=== PATIENT | male | born 1930 | race Caucasian/White ===

== ENCOUNTER 2018-02-22 17:28 | Observation (INO) | payer MEDICARE, BC ==
[~2018-02-22] VITALS: Ht 170.2 cm; Wt 91.7 kg
[~2018-02-22 17:28] MED LIST: CARV12.52 PO; CHEL50TA PO; FERR140T PO; JANU50TA PO; LISI2.5T55 PO; METO50TA PO; OMEP20TA39 PO; PRAV10 PO; PROS5TAB2 PO; TAMS0.4C67 PO; TRAZ50TA4 PO; WARF2TAB PO
[2018-02-22 17:31] VITALS: BP 113/54; PULSE 81; RESP 16; TEMP 97.4; O2SAT 95
--- NOTE | 2018-02-22 17:39 | PD ---
HPI Chief Complaint: Bleeding Time Seen by Provider: 17:39 Travel History International Travel<30 days: No Contact w/Intl Traveler<30days: No Traveled to known affect area: No History of Present Illness HPI 87-year-old male came to the emergency room with his with history of bleeding from his AV fistula for his hemodialysis. Patient was last dialyzed yesterday and the bleeding started from the site last night. says that they have gone through many gauzes since then and the bleeding will not stop. Patient is also on Coumadin and his INR was 2.5 about 1 week ago. Patient is hemodynamically stable. No history of dizziness or lightheadedness. PFSH Past Medical History Narrative Medical List of his past medical, surgical, social and family history reviewed from the nursing note. Hx Anticoagulant Therapy: Yes (Warfarin) Cardiac Catheterization: Yes Cardiovascular Problems: Yes (Open Heart 1997) High Cholesterol: Yes Coronary Artery Disease: Yes Diabetes: Yes (Type 2) Dialysis: Yes (-w-) Diminished Hearing: No GERD: Yes Hypertension: Yes Past Surgical History Coronary Artery Bypass Graft: Yes (X 4 VESSELS) Valve Replacement: Yes (MVR, AV REPAIR) Other Surgery: Yes (AV FISTULA LUE) Social History Alcohol Use: No Tobacco Use: No Substance Use: No Allergies-Medications (Allergen,Severity, Reaction): Coded Allergies: simvastatin (Verified Allergy, Severe, WEAKNESS, 02/22/18) Comments List of his allergies reviewed from the nursing note. Reported Meds & Prescriptions Reported Meds & Active Scripts Active Reported Zolpidem (Zolpidem Tartrate) 5 Mg Tab 5 Mg PO HS PRN Renvela (Sevelamer Carbonate) 800 Mg Tab 800 Mg PO TID Isosorbide Mononitrate ER (Isosorbide Mononitrate) 30 Mg Melanie 30 Mg PO DAILY Tamsulosin (Tamsulosin HCl) 0.4 Mg Cap 0.4 Mg PO HS Pravastatin 10 Mg Tab 10 Mg PO DAILY Trazodone (Trazodone HCl) 50 Mg Tab 50 Mg PO HS Finasteride 5 Mg Tab 5 Mg PO DAILY Do not crush. Carvedilol 3.125 Mg Tab 3.125 Mg PO BID [Zinc] 50 Mg PO DAILY Aspirin Low Dose (Aspirin) 81 Mg Chew 81 Mg PO DAILY Iron (Ferrous Sulfate) 18 Mg Tab 65 Mg PO DAILY Januvia (Sitagliptin Phosphate) 50 Mg Tab 50 Mg PO DAILY Narrative Medication List of his home medications reviewed from the nursing note Review of Systems Except as stated in HPI: all other systems reviewed are Neg Physical Exam Narrative GENERAL: Awake, alert, no obvious distress SKIN: Focused skin assessment warm/dry. Left arm fistula with thrill. There is gauze dressing with tape on it. Upon slowly taking the tape off this seems to be a slow ooze of blood from the fistulous area. HEAD: Atraumatic. Normocephalic. EYES: Pupils equal and round. No scleral icterus. No injection or drainage. ENT: No nasal bleeding or discharge. Mucous membranes pink and moist. NECK: Trachea midline. No JVD. CARDIOVASCULAR: Regular rate and rhythm. No murmur appreciated. RESPIRATORY: No accessory muscle use. Clear to auscultation. Breath sounds equal bilaterally. GASTROINTESTINAL: Abdomen soft, non-tender, nondistended. Hepatic and splenic margins not palpable. MUSCULOSKELETAL: No obvious deformities. No clubbing. No cyanosis. No edema. NEUROLOGICAL: Awake and alert. No obvious cranial nerve deficits. Motor grossly within normal limits. Normal speech. PSYCHIATRIC: Appropriate mood and affect; insight and judgment normal. Data Data Last Documented VS Vital Signs Date Time Temp Pulse Resp B/P (MAP) Pulse Ox O2 Delivery O2 Flow Rate FiO2 02/22/18 19:07 98 18 113/60 (77) 100 Room Air 02/22/18 17:31 97.4 Orders Orders Complete Blood Count With Diff (02/22/18 17:48) Basic Metabolic Panel (Bmp) (02/22/18 17:48) Prothrombin Time / Inr (Pt) (02/22/18 17:48) Gelatin 12 Mm/7 Mm Top (Gelfoam 12 Mm/7 (02/22/18 18:00) Phytonadione (Mephyton) (02/22/18 18:30) Place In Observation (02/22/18 ) Vital Signs (Adult) Q4H (02/22/18 19:06) Activity Oob With Assistance (02/22/18 19:06) Sodium Chloride 0.9% Flush (Ns Flush) (02/22/18 19:15) Sodium Chloride 0.9% Flush (Ns Flush) (02/22/18 21:00) Acetaminophen (Tylenol) (02/22/18 19:15) Ondansetron Inj (Zofran Inj) (02/22/18 19:15) Basic Metabolic Panel (Bmp) (02/23/18 06:00) Complete Blood Count With Diff (02/23/18 06:00) Naloxone Inj (Narcan Inj) (02/22/18 19:15) Docusate Sodium-Senna (Tammie-Colace) (02/22/18 21:00) Magnesium Hydroxide Liq (Milk Of Magnesi (02/22/18 19:15) Sennosides (Senokot) (02/22/18 19:15) Bisacodyl Supp (Dulcolax Supp) (02/22/18 19:15) Lactulose Liq (Lactulose Liq) (02/22/18 19:15) Prothrombin Time / Inr (Pt) (02/23/18 06:00) Consult Nephrology (02/22/18 ) Admit Order (Ed Use Only) (02/22/18 19:09) Labs Laboratory Tests Test 02/22/18 18:00 White Blood Count 6.3 TH/MM3 Red Blood Count 3.02 MIL/MM3 Hemoglobin 10.1 GM/DL Hematocrit 29.4 % Mean Corpuscular Volume 97.3 FL Mean Corpuscular Hemoglobin 33.5 PG Mean Corpuscular Hemoglobin Concent 34.5 % Red Cell Distribution Width 15.1 % Platelet Count 160 TH/MM3 Mean Platelet Volume 8.1 FL Neutrophils (%) (Auto) 67.1 % Lymphocytes (%) (Auto) 13.9 % Monocytes (%) (Auto) 8.8 % Eosinophils (%) (Auto) 6.4 % Basophils (%) (Auto) 3.8 % Neutrophils # (Auto) 4.2 TH/MM3 Lymphocytes # (Auto) 0.9 TH/MM3 Monocytes # (Auto) 0.6 TH/MM3 Eosinophils # (Auto) 0.4 TH/MM3 Basophils # (Auto) 0.2 TH/MM3 CBC Comment DIFF FINAL Differential Comment Prothrombin Time 51.0 SEC Prothromb Time International Ratio 5.1 RATIO Blood Urea Nitrogen 24 MG/DL Creatinine 5.80 MG/DL Random Glucose 115 MG/DL Calcium Level 9.5 MG/DL Sodium Level 136 MEQ/L Potassium Level 3.9 MEQ/L Chloride Level 101 MEQ/L Carbon Dioxide Level 27.4 MEQ/L Anion Gap 8 MEQ/L Estimat Glomerular Filtration Rate 9 ML/MIN [facility] Medical Decision Making Medical Screen Exam Complete: Yes Emergency Medical Condition: Yes Medical Record Reviewed: Yes Differential Diagnosis Bleeding from AV fistula Narrative Course 6:10 PM CBC is back and within acceptable limit. Awaiting for chemistry and INR. Patient will get a Gelfoam dressing and be observed to see if that stops the bleeding. 6:28 PM thrombin Gelfoam dressing was applied to the area. Meanwhile the blood test results are back and INR is 5.1. I have ordered for p.o. vitamin K for this patient. 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 6:55 PM I just went back and checked on the patient's dressing and the blood was oozing out. I have taken out the dressing and applied a fresh Gelfoam and a tighter dressing over it. However given the situation at this point and the elevated INR I think it would be better to admit the patient and observe him overnight. Awaiting for the hospitalist to call back. 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 You will require a repeat blood test to check your INR in 48 hours. Hold off on your Coumadin for tonight and tomorrow. Return to the ER if condition worsens or any other new concerns. Med/Other Pt SpecificInfo: Existing Med Changed (Hold off on the Warfarin for next 2 days) Scripts Warfarin (Warfarin) 4 Mg Tab 4 MG PO EVERY OTHER DAY for Blood Clot Prevention, #30 TAB 0 Refills Prov: Kamla Sheikh 02/24/18 Warfarin (Warfarin) 3 Mg Tab 3 MG PO EVERY OTHER DAY for Blood Clot Prevention, #30 TAB 0 Refills Prov: Kamla Sheikh 02/24/18 Amber Swift MD February 22, 2018 17:39
[2018-02-22] MEDS ORDERED: GELATIN 12 MM/7 MM FOAM TOPICAL ONE (18:00)
[2018-02-22 18:06] LABS: AUTOMATED NEUTROPHIL # 4.2 TH/MM3 (1.8-7.7); BASOPHIL # 0.2 TH/MM3 (0-0.2); BASOPHIL % 3.8 % (0.0-2.0); EOSINOPHIL # 0.4 TH/MM3 (0-0.4); EOSINOPHIL % 6.4 % (0.0-4.0); HEMATOCRIT 29.4 % (39.0-51.0); HEMOGLOBIN 10.1 GM/DL (13.0-17.0); LYMPH % 13.9 % (9.0-44.0); LYMPHOCYTE # 0.9 TH/MM3 (1.0-4.8); MEAN CELL VOLUME 97.3 FL (80.0-100.0); MEAN CORPUSCULAR HEMOGLOBIN 33.5 PG (27.0-34.0); MEAN CORPUSCULAR HGB CONC 34.5 % (32.0-36.0); MEAN PLATELET VOLUME 8.1 FL (7.0-11.0); MONO % 8.8 % (0.0-8.0); MONOCYTE # 0.6 TH/MM3 (0-0.9); NEUT % 67.1 % (16.0-70.0); PLATELET COUNT 160 TH/MM3 (150-450); RED BLOOD COUNT 3.02 MIL/MM3 (4.50-5.90); RED CELL DISTRIBUTION WIDTH 15.1 % (11.6-17.2); WHITE BLOOD COUNT 6.3 TH/MM3 (4.0-11.0)
[2018-02-22 18:17] LABS: CALCIUM 9.5 MG/DL (8.5-10.1)
[2018-02-22 18:18] LABS: BICARBONATE 27.4 MEQ/L (21.0-32.0)
[2018-02-22 18:19] LABS: INTERNATIONAL NORMALIZED RATIO 5.1 RATIO
[2018-02-22 18:21] LABS: CREATININE 5.8 MG/DL (0.60-1.30)
[2018-02-22] MEDS ORDERED: PHYTONADIONE 5 MG TAB PO ONE (18:30)
[2018-02-22 18:34] VITALS: BP 126/79; PULSE 68; RESP 16; O2SAT 97
[2018-02-22 19:07] VITALS: BP 113/60; PULSE 98; RESP 18; O2SAT 100
[2018-02-22] MEDS ORDERED: ONDANSETRON HCL 4 MG/2 ML VIAL IVP PRN (19:15)
[2018-02-22] MEDS ORDERED: MAGNESIUM HYDROXIDE SUSP 30 ML CUP PO PRN (19:15)
[2018-02-22] MEDS ORDERED: LACTULOSE SYRUP 20 GM/30 ML CUP PO PRN (19:15)
[2018-02-22] MEDS ORDERED: NALOXONE HCL 0.4 MG/ML AMP IV PUSH PRN (19:15)
[2018-02-22] MEDS ORDERED: SENNOSIDES 8.6 MG TAB PO PRN (19:15)
[2018-02-22] MEDS ORDERED: SODIUM CHLORIDE 0.9% FLUSH 10 ML FLUSH IV FLUSH PRN (19:15)
[2018-02-22] MEDS ORDERED: BISACODYL 10 MG SUPP RECTAL PRN (19:15)
[2018-02-22] MEDS ORDERED: ACETAMINOPHEN 325 MG TAB PO PRN (19:15)
[2018-02-22] MEDS ORDERED: SEVEL800 PO (19:16)
[2018-02-22] MEDS ORDERED: ASPI81CH6 PO (19:16)
[2018-02-22] MEDS ORDERED: ZOLP5TAB3 PO (19:16)
[2018-02-22] MEDS ORDERED: ZINCLOZ8 PO (19:16)
[2018-02-22] MEDS ORDERED: FINA5TAB2 PO (19:16)
[2018-02-22] MEDS ORDERED: TRAZ50TA12 PO (19:16)
[2018-02-22] MEDS ORDERED: SITA50 PO (19:16)
[2018-02-22] MEDS ORDERED: TAMS0.4C4 PO (19:16)
[2018-02-22] MEDS ORDERED: CARV3.12 PO (19:16)
[2018-02-22] MEDS ORDERED: IRON18TA PO (19:16)
[2018-02-22] MEDS ORDERED: PRAV10TA PO (19:16)
[2018-02-22] MEDS ORDERED: ISOS30TA3 PO (19:16)
[2018-02-22] MEDS ORDERED: WARF-20 PO (19:16)
[2018-02-22 20:55] VITALS: BP 121/61
[2018-02-22] MEDS: DOCUSATE SODIUM 50 MG/SENNA 8.6 MG TAB PO SCH (21:00)
[2018-02-22 21:23] VITALS: BP 130/62; PULSE 80; RESP 20; TEMP 96.7; O2SAT 99
[2018-02-23] VITALS (8 sets, daily range): BP systolic 114–129; BP diastolic 57–100; PULSE 67–87; RESP 15–18; TEMP 96–98.1; O2SAT 92–99
[2018-02-23] MEDS: SODIUM CHLORIDE 0.9% FLUSH 10 ML FLUSH IV FLUSH SCH ×3 (00:49→22:05)
[2018-02-23 06:49] LABS: AUTOMATED NEUTROPHIL # 4.5 TH/MM3 (1.8-7.7); BASOPHIL # 0.2 TH/MM3 (0-0.2); BASOPHIL % 2.8 % (0.0-2.0); EOSINOPHIL # 0.4 TH/MM3 (0-0.4); EOSINOPHIL % 5.7 % (0.0-4.0); HEMATOCRIT 29.9 % (39.0-51.0); HEMOGLOBIN 9.5 GM/DL (13.0-17.0); LYMPH % 10.8 % (9.0-44.0); LYMPHOCYTE # 0.7 TH/MM3 (1.0-4.8); MEAN CELL VOLUME 96.6 FL (80.0-100.0); MEAN CORPUSCULAR HEMOGLOBIN 30.8 PG (27.0-34.0); MEAN CORPUSCULAR HGB CONC 31.9 % (32.0-36.0); MEAN PLATELET VOLUME 8.3 FL (7.0-11.0); MONOCYTE # 0.7 TH/MM3 (0-0.9); NEUT % 69.7 % (16.0-70.0); PLATELET COUNT 153 TH/MM3 (150-450); RED BLOOD COUNT 3.09 MIL/MM3 (4.50-5.90); RED CELL DISTRIBUTION WIDTH 14.3 % (11.6-17.2); WHITE BLOOD COUNT 6.5 TH/MM3 (4.0-11.0)
[2018-02-23 06:52] LABS: INTERNATIONAL NORMALIZED RATIO 3.3 RATIO; PROTHROMBIN TIME - PATIENT 33.6 SEC (9.8-11.6)
[2018-02-23 06:58] LABS: BICARBONATE 25.5 MEQ/L (21.0-32.0); CALCIUM 9.5 MG/DL (8.5-10.1)
[2018-02-23 07:01] LABS: CREATININE 6.4 MG/DL (0.60-1.30)
[2018-02-23] MEDS ORDERED: SODIUM CHLOR 0.9% 1000 ML INJ 1,000 ML OTHER PRN ×2 (08:12)
[2018-02-23] MEDS ORDERED: SODIUM CHLOR 0.9% 1000 ML INJ 1,000 ML IV PRN (08:12)
[2018-02-23] MEDS ORDERED: ACETAMINOPHEN 325 MG TAB PO PRN (08:15)
[2018-02-23] MEDS ORDERED: HEPARIN SODIUM - IV 10,000 UNITS/10 ML VIAL IV FLUSH PRN (08:15)
[2018-02-23] MEDS ORDERED: EPOETIN ALFA 10,000 UNITS/ML VIAL IV PUSH PRN (08:15)
[2018-02-23] MEDS ORDERED: ALBUMIN 25% INJ 100 ML IV PRN (08:15)
[2018-02-23] MEDS ORDERED: MANNITOL 12.5 GM/50 ML VIAL IV PRN (08:15)
[2018-02-23] MEDS ORDERED: ONDANSETRON HCL 4 MG/2 ML VIAL IV PUSH PRN (08:15)
[2018-02-23] MEDS: DOCUSATE SODIUM 50 MG/SENNA 8.6 MG TAB PO SCH ×2 (08:15→21:00)
[2018-02-23] MEDS ORDERED: NITROGLYCERIN 0.4 MG SL 25 TABS/BTL SL PRN (08:15)
[2018-02-23] MEDS ORDERED: GELATIN 12 MM/7 MM FOAM TOP PRN (08:15)
[2018-02-23] MEDS ORDERED: SODIUM CHLORIDE 0.9% FLUSH 10 ML FLUSH IV FLUSH PRN (08:15)
[2018-02-23] MEDS ORDERED: diphenhydrAMINE HCL 25 MG CAP PO PRN (08:15)
[2018-02-23] MEDS ORDERED: cloNIDine HCL 0.1 MG TAB PO PRN (08:15)
--- NOTE | 2018-02-23 11:55 | HHI.HP ---
HPI Service [facility] Primary Care Physician Armand Flynn, DO Admission Diagnosis AV fistula bleed, INR elevation Diagnoses: (1) End stage renal disease (2) Hemorrhage of arteriovenous fistula (3) Elevated INR (4) Dependent on hemodialysis Chief Complaint: Elevated INR Hemorrhage and AV fistula site Travel History International Travel<30 Days: No Contact w/Intl Traveler <30 Da: No Traveled to Known Affected Are: No History of Present Illness This is a pleasant 87-year-old male patient with a known medical history of end- stage renal disease on dialysis, hypertension, CAD and diabetes who presented to the ED with complaints of AV fistula bleeding. Supposedly patient had dialysis 2 days ago and since then has been bleeding from the site and has not stopped. Patient is on Coumadin for valve replacement and had his INR checked 1 week ago which was reportedly within normal limits. Patient denies any other acute complaints. Denies any recent illness including fever, chills, cough, shortness of breath, abdominal pain, nausea, vomiting, diarrhea dysuria. Patient is to undergo HD today. Vital signs are stable on presentation. INR 5.1 on presentation. CBC showing mild anemia. PCP Dr. Flynn. Follows with Dr. Nicolas, cardiology. Review of Systems Constitutional: DENIES: Fever, Chills, Dizziness Endocrine: DENIES: Polydipsia Eyes: DENIES: Diplopia Respiratory: DENIES: Cough, Sputum production, Shortness of breath Cardiovascular: DENIES: Chest pain, Palpitations, Lower Extremity Edema Gastrointestinal: DENIES: Abdominal pain, Black stools, Bloody stools, Constipation, Diarrhea, Nausea, Vomiting Musculoskeletal: DENIES: Joint pain Hematologic/lymphatic: DENIES: Bruising Psychiatric: DENIES: Anxiety Except as stated in HPI: all other systems reviewed are Neg Past Family Social History Past Medical History Hypertension GERD Diabetes CAD with history of valve replacement Hyperlipidemia End-stage renal disease on HD Past Surgical History Left upper extremity AV fistula Open heart 2 with MDR, AV repair. Left ankle surgery and specified Reported Medications Active Reported Zolpidem (Zolpidem Tartrate) 5 Mg Tab 5 Mg PO HS PRN Renvela (Sevelamer Carbonate) 800 Mg Tab 800 Mg PO TID Isosorbide Mononitrate ER (Isosorbide Mononitrate) 30 Mg Melanie 30 Mg PO DAILY Warfarin 4 Mg Tab 4 Mg PO DAILY Tamsulosin (Tamsulosin HCl) 0.4 Mg Cap 0.4 Mg PO HS Pravastatin 10 Mg Tab 10 Mg PO DAILY Trazodone (Trazodone HCl) 50 Mg Tab 50 Mg PO HS Finasteride 5 Mg Tab 5 Mg PO DAILY Do not crush. Carvedilol 3.125 Mg Tab 3.125 Mg PO BID [Zinc] 50 Mg PO DAILY Aspirin Low Dose (Aspirin) 81 Mg Chew 81 Mg PO DAILY Iron (Ferrous Sulfate) 18 Mg Tab 65 Mg PO DAILY Januvia (Sitagliptin Phosphate) 50 Mg Tab 50 Mg PO DAILY Allergies: Coded Allergies: simvastatin (Verified Allergy, Severe, WEAKNESS, 02/22/18) Active Ordered Medications Current Medications Medications (Trade) Dose Ordered Sig/Rayne Route Start Time Stop Time Status Last Admin (NS Flush) 2 ml UNSCH PRN IV FLUSH 02/22/18 19:15 (NS Flush) 2 ml BID IV FLUSH 02/22/18 21:00 02/23/18 08:15 (Tylenol) 650 mg Q4H PRN PO 02/22/18 19:15 (Zofran Inj) 4 mg Q6H PRN IVP 02/22/18 19:15 (Narcan Inj) 0.4 mg UNSCH PRN IV PUSH 02/22/18 19:15 (Tammie-Colace) 1 tab BID PO 02/22/18 21:00 02/23/18 08:15 (Milk Of Magnesia Liq) 30 ml Q12H PRN PO 02/22/18 19:15 (Senokot) 17.2 mg Q12H PRN PO 02/22/18 19:15 (Dulcolax Supp) 10 mg DAILY PRN RECTAL 02/22/18 19:15 (Lactulose Liq) 30 ml DAILY PRN PO 02/22/18 19:15 Sodium Chloride 1,000 ml @ 0 mls/hr Q0M PRN OTHER 02/23/18 08:12 (Heparin Inj) 8,000 units UNSCH PRN IV FLUSH 02/23/18 08:15 Sodium Chloride 1,000 ml @ 200 mls/hr Q5H PRN IV 02/23/18 08:12 Sodium Chloride 1,000 ml @ 0 mls/hr Q0M PRN OTHER 02/23/18 08:12 (Mannitol Inj) 12.5 gm UNSCH PRN IV 02/23/18 08:15 Albumin Human 100 ml @ 60 mls/hr UNSCH PRN IV 02/23/18 08:15 (NS Flush) 5 ml UNSCH PRN IV FLUSH 02/23/18 08:15 (Zofran Inj) 4 mg UNSCH PRN IV PUSH 02/23/18 08:15 (Tylenol) 650 mg UNSCH PRN PO 02/23/18 08:15 (Benadryl) 25 mg UNSCH PRN PO 02/23/18 08:15 (Nitrostat Sl) 0.4 mg UNSCH PRN SL 02/23/18 08:15 (Catapres) 0.1 mg UNSCH PRN PO 02/23/18 08:15 (Epogen Inj) 4,000 units UNSCH PRN IV PUSH 02/23/18 08:15 (Gelfoam 12 Mm/7 Mm Top) 1 foam UNSCH PRN TOP 02/23/18 08:15 Family History Denies any significant family medical history. Social History Denies any current tobacco abuse, states he quit in 196. Denies any alcohol or illicit drug use. Physical Exam Vital Signs Vital Signs Date Time Temp Pulse Resp B/P (MAP) Pulse Ox O2 Delivery O2 Flow Rate FiO2 02/23/18 08:00 96.5 82 18 127/100 (109) 94 02/23/18 05:24 97.2 79 18 120/70 (87) 99 02/22/18 21:23 96.7 80 20 130/62 (84) 99 02/22/18 20:55 100 18 121/61 (81) 100 02/22/18 19:07 98 18 113/60 (77) 100 Room Air 02/22/18 18:34 68 16 126/79 (95) 97 Room Air 02/22/18 17:31 97.4 81 16 113/54 (73) 95 Physical Exam GENERAL: Well-developed, well-nourished patient in NAD. SKIN: Warm and dry. No rash. Left upper ext AV fistula in place, bruit and thrill noted. Bandage in place, no bleeding today. HEAD: Normocephalic. Atraumatic. EYES: Pupils equal and round. No scleral icterus. No injection or drainage. ENT: No nasal bleeding or discharge. Mucous membranes pink and moist. NECK: Supple. Trachea midline. CARDIOVASCULAR: Regular rate and rhythm. S1, S2 noted. No murmur appreciated. RESPIRATORY: No accessory muscle use. Clear to auscultation. Breath sounds equal bilaterally. GASTROINTESTINAL: Abdomen soft, non-tender, nondistended. Normoactive bowel sounds x4. MUSCULOSKELETAL: No obvious deformities. Extremities without clubbing, cyanosis , or edema. NEUROLOGICAL: Awake and alert. No obvious cranial nerve deficits. Motor grossly within normal limits. 5/5 muscle strength in bilateral upper and lower extremities. Normal speech. PSYCHIATRIC: Appropriate mood and affect; insight and judgment normal. Laboratory Laboratory Tests Test 02/22/18 18:00 02/23/18 05:47 02/23/18 06:01 White Blood Count 6.3 6.5 Red Blood Count 3.02 3.09 Hemoglobin 10.1 9.5 Hematocrit 29.4 29.9 Mean Corpuscular Volume 97.3 96.6 Mean Corpuscular Hemoglobin 33.5 30.8 Mean Corpuscular Hemoglobin Concent 34.5 31.9 Red Cell Distribution Width 15.1 14.3 Platelet Count 160 153 Mean Platelet Volume 8.1 8.3 Neutrophils (%) (Auto) 67.1 69.7 Lymphocytes (%) (Auto) 13.9 10.8 Monocytes (%) (Auto) 8.8 11.0 Eosinophils (%) (Auto) 6.4 5.7 Basophils (%) (Auto) 3.8 2.8 Neutrophils # (Auto) 4.2 4.5 Lymphocytes # (Auto) 0.9 0.7 Monocytes # (Auto) 0.6 0.7 Eosinophils # (Auto) 0.4 0.4 Basophils # (Auto) 0.2 0.2 CBC Comment DIFF FINAL DIFF FINAL Differential Comment Prothrombin Time 51.0 33.6 Prothromb Time International Ratio 5.1 3.3 Blood Urea Nitrogen 24 30 Creatinine 5.80 6.40 Random Glucose 115 104 Calcium Level 9.5 9.5 Sodium Level 136 137 Potassium Level 3.9 4.2 Chloride Level 101 103 Carbon Dioxide Level 27.4 25.5 Anion Gap 8 9 Estimat Glomerular Filtration Rate 9 8 Result Diagram: 02/23/1860002/23/18600 Septic Shock Reassessment Septic shock perfusion: reassessment completed Caprini VTE Risk Assessment Caprini VTE Risk Assessment: Mod/High Risk (score >= 2) Caprini Risk Assessment Model Point Value = 1 Point Value = 2 Point Value = 3 Point Value = 5 Age 41-60 Minor surgery BMI > 25 kg/m2 Swollen legs Varicose veins or History of unexplained or recurrent spontaneous Oral contraceptives or hormone replacement Sepsis (< 1 month) Serious lung disease, including pneumonia (< 1 month) Abnormal pulmonary function Acute myocardial infarction Congestive heart failure (< 1 month) History of inflammatory bowel disease Medical patient at bed rest Age 61-74 Arthroscopic surgery Major open surgery (> 45 min) Laparoscopic surgery (> 45 min) Malignancy Confined to bed (> 72 hours) Immobilizing plaster cast Central venous access Age >= 75 History of VTE Family history of VTE Factor V Leiden Prothrombin 11061P Lupus anticoagulant Anticardiolipin antibodies Elevated serum homocysteine Heparin-induced thrombocytopenia Other congenital or acquired thrombophilia Stroke (< 1 month) Elective arthroplasty Hip, pelvis, or leg fracture Acute spinal cord injury (< 1 month) Prophylaxis Regimen Total Risk Factor Score Risk Level Prophylaxis Regimen 0-1 Low Early ambulation 2 Moderate Order ONE of the following: *Sequential Compression Device (SCD) *Heparin 5000 units SQ BID 3-4 Higher Order ONE of the following medications: *Heparin 5000 units SQ TID *Enoxaparin/Lovenox 40 mg SQ daily (WT < 150 kg, CrCl > 30 mL/min) *Enoxaparin/Lovenox 30 mg SQ daily (WT < 150 kg, CrCl > 10-29 mL/min) *Enoxaparin/Lovenox 30 mg SQ BID (WT < 150 kg, CrCl > 30 mL/min) AND/OR *Sequential Compression Device (SCD) 5 or more Highest Order ONE of the following medications: *Heparin 5000 units SQ TID (Preferred with Epidurals) *Enoxaparin/Lovenox 40 mg SQ daily (WT < 150 kg, CrCl > 30 mL/min) *Enoxaparin/Lovenox 30 mg SQ daily (WT < 150 kg, CrCl > 10-29 mL/min) *Enoxaparin/Lovenox 30 mg SQ BID (WT < 150 kg, CrCl > 30 mL/min) AND *Sequential Compression Device (SCD) Assessment and Plan Problem List: (1) End stage renal disease ICD Code: N18.6 - End stage renal disease Status: Acute Plan: Patient has left upper extremity AV fistula, was bleeding now has resolved. Status post vitamin K. Receives hemodialysis Monday, Monday, Monday. Stable at this time. Continue to monitor. (2) Hemorrhage of arteriovenous fistula ICD Code: T82.838A - Hemorrhage due to vascular prosthetic devices, implants and grafts, initial encounter Status: Acute Plan: INR 5.1 presentation now 3.3 today. Left AV fistula bleeding resolved. Will undergo HD today. Possible discharge later. BMP reviewed, chronic kidney disease. (3) Elevated INR ICD Code: R79.1 - Abnormal coagulation profile Status: Acute Plan: INR 3.3 today. Status post vitamin K. Will follow. 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 Will undergo treatment today. AV fistula bleeding resolved. Problem Qualifiers (1) Hemorrhage of arteriovenous fistula: Qualified Codes: T82.838A - Hemorrhage due to vascular prosthetic devices, implants and grafts, initial encounter Kamla Sheikh February 23, 2018 11:55
--- NOTE | 2018-02-23 17:01 | PD.CONS ---
HPI Service Nephrology Consult Requested By Dr. Simmons Reason for Consult ESRD Primary Care Physician Armand Flynn, DO History of Present Illness Patient is a 87-year-old white male with history of end-stage renal disease, atrial fibrillation, on warfarin, congestive heart failure, coronary artery disease who has been admitted with any excessive bleeding through his AV fistula , started bleeding yesterday and he has to come to the emergency his INR was high 5.1 he was given vitamin K, he has hemodialysis on Monday, Monday and Monday, he states that times it takes longer to stop bleeding. Past Family Social History Allergies: Coded Allergies: simvastatin (Verified Allergy, Severe, WEAKNESS, 02/22/18) Past Medical History Hypertension GERD Diabetes CAD with history of valve replacement Hyperlipidemia End-stage renal disease on HD Atrial fibrillation Past Surgical History Left upper extremity AV fistula Open heart 2 with MDR, AV repair. Left ankle surgery and specified Reported Medications Reported Meds & Active Scripts Active Reported Zolpidem (Zolpidem Tartrate) 5 Mg Tab 5 Mg PO HS PRN Renvela (Sevelamer Carbonate) 800 Mg Tab 800 Mg PO TID Isosorbide Mononitrate ER (Isosorbide Mononitrate) 30 Mg Melanie 30 Mg PO DAILY Warfarin 4 Mg Tab 4 Mg PO DAILY Tamsulosin (Tamsulosin HCl) 0.4 Mg Cap 0.4 Mg PO HS Pravastatin 10 Mg Tab 10 Mg PO DAILY Trazodone (Trazodone HCl) 50 Mg Tab 50 Mg PO HS Finasteride 5 Mg Tab 5 Mg PO DAILY Do not crush. Carvedilol 3.125 Mg Tab 3.125 Mg PO BID [Zinc] 50 Mg PO DAILY Aspirin Low Dose (Aspirin) 81 Mg Chew 81 Mg PO DAILY Iron (Ferrous Sulfate) 18 Mg Tab 65 Mg PO DAILY Januvia (Sitagliptin Phosphate) 50 Mg Tab 50 Mg PO DAILY Active Ordered Medications Current Medications Medications (Trade) Dose Ordered Sig/Rayne Route Start Time Stop Time Status Last Admin (NS Flush) 2 ml UNSCH PRN IV FLUSH 02/22/18 19:15 (NS Flush) 2 ml BID IV FLUSH 02/22/18 21:00 02/23/18 08:15 (Tylenol) 650 mg Q4H PRN PO 02/22/18 19:15 (Zofran Inj) 4 mg Q6H PRN IVP 02/22/18 19:15 (Narcan Inj) 0.4 mg UNSCH PRN IV PUSH 02/22/18 19:15 (Tammie-Colace) 1 tab BID PO 02/22/18 21:00 02/23/18 08:15 (Milk Of Magnesia Liq) 30 ml Q12H PRN PO 02/22/18 19:15 (Senokot) 17.2 mg Q12H PRN PO 02/22/18 19:15 (Dulcolax Supp) 10 mg DAILY PRN RECTAL 02/22/18 19:15 (Lactulose Liq) 30 ml DAILY PRN PO 02/22/18 19:15 Sodium Chloride 1,000 ml @ 0 mls/hr Q0M PRN OTHER 02/23/18 08:12 (Heparin Inj) 8,000 units UNSCH PRN IV FLUSH 02/23/18 08:15 Sodium Chloride 1,000 ml @ 200 mls/hr Q5H PRN IV 02/23/18 08:12 Sodium Chloride 1,000 ml @ 0 mls/hr Q0M PRN OTHER 02/23/18 08:12 (Mannitol Inj) 12.5 gm UNSCH PRN IV 02/23/18 08:15 Albumin Human 100 ml @ 60 mls/hr UNSCH PRN IV 02/23/18 08:15 (NS Flush) 5 ml UNSCH PRN IV FLUSH 02/23/18 08:15 (Zofran Inj) 4 mg UNSCH PRN IV PUSH 02/23/18 08:15 (Tylenol) 650 mg UNSCH PRN PO 02/23/18 08:15 (Benadryl) 25 mg UNSCH PRN PO 02/23/18 08:15 (Nitrostat Sl) 0.4 mg UNSCH PRN SL 02/23/18 08:15 (Catapres) 0.1 mg UNSCH PRN PO 02/23/18 08:15 (Epogen Inj) 4,000 units UNSCH PRN IV PUSH 02/23/18 08:15 (Gelfoam 12 Mm/7 Mm Top) 1 foam UNSCH PRN TOP 02/23/18 08:15 Family History Noncontributory Social History Denies smoking or alcohol Physical Exam Vital Signs Vital Signs Date Time Temp Pulse Resp B/P (MAP) Pulse Ox O2 Delivery O2 Flow Rate FiO2 5/4/18 12:00 96.0 82 16 117/61 (79) 98 02/23/18 09:00 96 21 02/23/18 08:00 96.5 82 18 127/100 (109) 94 02/23/18 05:24 97.2 79 18 120/70 (87) 99 02/22/18 21:23 96.7 80 20 130/62 (84) 99 02/22/18 20:55 100 18 121/61 (81) 100 02/22/18 19:07 98 18 113/60 (77) 100 Room Air 02/22/18 18:34 68 16 126/79 (95) 97 Room Air 02/22/18 17:31 97.4 81 16 113/54 (73) 95 Physical Exam GENERAL: Well-nourished, well-developed patient. SKIN: Warm and dry. HEAD: Normocephalic. EYES: No scleral icterus. No injection or drainage. NECK: Supple, trachea midline. No JVD or lymphadenopathy. CARDIOVASCULAR: Irregularly irregular 2/6 systolic murmur RESPIRATORY: Breath sounds equal bilaterally. No accessory muscle use. GASTROINTESTINAL: Abdomen soft, non-tender, nondistended. EXTREMITIES: No cyanosis, or edema. NEUROLOGICAL: Awake, alert, and oriented x 3. Non-focal. Laboratory Laboratory Tests Test 02/22/18 18:00 02/23/18 05:47 02/23/18 06:01 White Blood Count 6.3 6.5 Red Blood Count 3.02 3.09 Hemoglobin 10.1 9.5 Hematocrit 29.4 29.9 Mean Corpuscular Volume 97.3 96.6 Mean Corpuscular Hemoglobin 33.5 30.8 Mean Corpuscular Hemoglobin Concent 34.5 31.9 Red Cell Distribution Width 15.1 14.3 Platelet Count 160 153 Mean Platelet Volume 8.1 8.3 Neutrophils (%) (Auto) 67.1 69.7 Lymphocytes (%) (Auto) 13.9 10.8 Monocytes (%) (Auto) 8.8 11.0 Eosinophils (%) (Auto) 6.4 5.7 Basophils (%) (Auto) 3.8 2.8 Neutrophils # (Auto) 4.2 4.5 Lymphocytes # (Auto) 0.9 0.7 Monocytes # (Auto) 0.6 0.7 Eosinophils # (Auto) 0.4 0.4 Basophils # (Auto) 0.2 0.2 CBC Comment DIFF FINAL DIFF FINAL Differential Comment Prothrombin Time 51.0 33.6 Prothromb Time International Ratio 5.1 3.3 Blood Urea Nitrogen 24 30 Creatinine 5.80 6.40 Random Glucose 115 104 Calcium Level 9.5 9.5 Sodium Level 136 137 Potassium Level 3.9 4.2 Chloride Level 101 103 Carbon Dioxide Level 27.4 25.5 Anion Gap 8 9 Estimat Glomerular Filtration Rate 9 8 Result Diagram: 02/23/1860002/23/18600 Assessment and Plan Problem List: (1) End stage renal disease ICD Codes: N18.6 - End stage renal disease Status: Acute Plan: Patient seen during hemodialysis tolerating it well ultrafiltrate 2 L We will see if bleeding stops early INR is declined Continue to monitor 12-lead EKG (2) Hemorrhage of arteriovenous fistula ICD Codes: T82.838A - Hemorrhage due to vascular prosthetic devices, implants and grafts, initial encounter Status: Acute Plan: Likely due to high INR (3) Elevated INR ICD Codes: R79.1 - Abnormal coagulation profile Status: Acute Plan: This is corrected Problem Qualifiers (1) Hemorrhage of arteriovenous fistula: Qualified Codes: T82.838A - Hemorrhage due to vascular prosthetic devices, implants and grafts, initial encounter Janeen Millan MD February 23, 2018 17:01
[2018-02-23 20:30] LABS: CALCIUM 9.1 MG/DL (8.5-10.1); PROTHROMBIN TIME - PATIENT 19.8 SEC (9.8-11.6)
[2018-02-23] MEDS ORDERED: WARFARIN SOD 2.5 MG TAB PO SCH (20:30)
[2018-02-23 22:00] LABS: CREATININE 4.5 MG/DL (0.60-1.30)
[2018-02-23] MEDS ORDERED: TAMSULOSIN HCL 0.4 MG CAP PO SCH (22:30)
[2018-02-23] MEDS ORDERED: traZODone HCL 50 MG TAB PO SCH (22:30)
[2018-02-23] MEDS: CARVEDILOL 3.125 MG TAB PO SCH (23:31)
[2018-02-24 07:19] LABS: AUTOMATED NEUTROPHIL # 4.4 TH/MM3 (1.8-7.7); BASOPHIL # 0.1 TH/MM3 (0-0.2); BASOPHIL % 0.9 % (0.0-2.0); EOSINOPHIL # 0.3 TH/MM3 (0-0.4); EOSINOPHIL % 4.9 % (0.0-4.0); HEMATOCRIT 28.2 % (39.0-51.0); HEMOGLOBIN 9.4 GM/DL (13.0-17.0); LYMPH % 12.3 % (9.0-44.0); LYMPHOCYTE # 0.7 TH/MM3 (1.0-4.8); MEAN CELL VOLUME 95.2 FL (80.0-100.0); MEAN CORPUSCULAR HEMOGLOBIN 31.9 PG (27.0-34.0); MEAN CORPUSCULAR HGB CONC 33.5 % (32.0-36.0); MEAN PLATELET VOLUME 8.1 FL (7.0-11.0); MONOCYTE # 0.5 TH/MM3 (0-0.9); NEUT % 72.9 % (16.0-70.0); PLATELET COUNT 139 TH/MM3 (150-450); RED BLOOD COUNT 2.96 MIL/MM3 (4.50-5.90); RED CELL DISTRIBUTION WIDTH 14.3 % (11.6-17.2)
[2018-02-24 07:50] VITALS: BP 117/57; PULSE 94; RESP 20; TEMP 97.6; O2SAT 96
[2018-02-24 08:05] LABS: INTERNATIONAL NORMALIZED RATIO 1.6 RATIO; PROTHROMBIN TIME - PATIENT 16.5 SEC (9.8-11.6)
[2018-02-24] MEDS: SODIUM CHLORIDE 0.9% FLUSH 10 ML FLUSH IV FLUSH SCH (08:24)
[2018-02-24] MEDS: DOCUSATE SODIUM 50 MG/SENNA 8.6 MG TAB PO SCH (08:24)
[2018-02-24] MEDS: CARVEDILOL 3.125 MG TAB PO SCH (08:24)
[2018-02-24] MEDS: SEVELAMER CARBONATE 800 MG TAB PO SCH ×2 (08:27→12:00)
[2018-02-24] MEDS ORDERED: ISOSORBIDE MONONITRATE 30 MG CR TAB (IMDUR) PO SCH (09:00)
[2018-02-24] MEDS ORDERED: PRAVASTATIN SOD 10 MG TAB PO SCH (09:00)
[2018-02-24] MEDS ORDERED: FINASTERIDE 5 MG TAB PO SCH (09:00)
[2018-02-24] MEDS ORDERED: FERROUS SULFATE 325 MG (65 MG ELEMENTAL IRON) TAB PO SCH (09:00)
--- NOTE | 2018-02-24 10:23 | HHI.PR ---
Subjective Remarks Follow-up bleeding AV fistula and elevated INR. Patient seen and examined, lying in bed comfortably no apparent distress. Denies any acute complaints. Patient is back to baseline. No further bleeding from AV fistula. Underwent dialysis yesterday tolerated well. INR 1.6. Will have patient discharged to follow-up with PCP and labs done on Monday. Spoke to last evening, updated about patient presentation and lab work. Objective Vitals Vital Signs Date Time Temp Pulse Resp B/P (MAP) Pulse Ox O2 Delivery O2 Flow Rate FiO2 02/23/18 23:09 96.2 67 15 119/57 (77) 96 02/23/18 21:04 98.1 80 18 114/57 (76) 94 02/23/18 19:51 92 21 02/23/18 18:30 98.0 87 18 129/60 (83) 97 02/23/18 12:00 96.0 82 16 117/61 (79) 98 I/O 02/23/18 02/23/18 02/23/18 02/24/18 02/24/18 02/24/18 07:00 15:00 23:00 07:00 15:00 23:00 Intake Total 240 ml 600 ml 0 ml Output Total 2000 ml 0 ml Balance 240 ml -1400 ml 0 ml Intake Oral 240 ml 600 ml 0 ml Output Urine Total 0 ml Hemodialysis 2000 ml # Voids 1 3 # Bowel Movements 2 Result Diagram: 02/24/18 0650 02/23/181999 Objective Remarks GENERAL: Well-developed, well-nourished patient in [facility]. SKIN: Warm and dry. No rash. Left upper extremity bruit and thrill present AV fistula. HEAD: Normocephalic. Atraumatic. EYES: Pupils equal and round. No scleral icterus. No injection or drainage. ENT: No nasal bleeding or discharge. Mucous membranes pink and moist. NECK: Supple. Trachea midline. CARDIOVASCULAR: Normal rhythm. S1-S2 present RESPIRATORY: No accessory muscle use. Clear to auscultation. Breath sounds equal bilaterally. GASTROINTESTINAL: Abdomen soft, non-tender, nondistended. Normoactive bowel sounds x4. MUSCULOSKELETAL: No obvious deformities. Extremities without clubbing, cyanosis , or trace bilateral lower extremity edema. NEUROLOGICAL: Awake and alert. No obvious cranial nerve deficits. Motor grossly within normal limits. 5/5 muscle strength in bilateral upper and lower extremities. Normal speech. PSYCHIATRIC: Appropriate mood and affect; insight and judgment normal. A/P Problem List: (1) End stage renal disease ICD Code: N18.6 - End stage renal disease Status: Acute Plan: Patient has left upper extremity AV fistula, was bleeding now has resolved. Status post vitamin K. Receives hemodialysis Monday, Monday, Monday. Underwent dialysis last evening. Stable at this time. Continue to monitor. (2) Hemorrhage of arteriovenous fistula ICD Code: T82.838A - Hemorrhage due to vascular prosthetic devices, implants and grafts, initial encounter Status: Acute Plan: INR 5.1 presentation now 1.6 today. Left AV fistula bleeding resolved. Underwent HD yesterday. (3) Elevated INR ICD Code: R79.1 - Abnormal coagulation profile Status: Acute Plan: INR 1.6. Status post vitamin K. Will give patient Coumadin is ordered for discharge follow-up PCP and dialysis on Monday morning. 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 AV fistula bleeding resolved. Problem Qualifiers (1) Hemorrhage of arteriovenous fistula: Qualified Codes: T82.838A - Hemorrhage due to vascular prosthetic devices, implants and grafts, initial encounter Kamla Sheikh February 24, 2018 10:23
[2018-02-24 11:40] VITALS: O2SAT 92
[2018-02-24 11:50] VITALS: BP 117/57; PULSE 94; RESP 20; TEMP 97.6; O2SAT 96
--- NOTE | 2018-02-24 12:17 | HHI.DCPOC ---
Discharge Care Plan Diagnosis: (1) End stage renal disease (2) Elevated INR (3) Dependent on hemodialysis (4) Hemorrhage of arteriovenous fistula Goals to Promote Your Health * To prevent worsening of your condition and complications * To maintain your health at the optimal level Directions to Meet Your Goals Take your medications as prescribed Follow your dietary instruction Follow activity as directed Keep your appointments as scheduled Take your immunizations and boosters as scheduled If your symptoms worsen call your PCP, if no PCP go to Urgent Care Center or Emergency Room Smoking is Dangerous to Your Health. Avoid second hand smoke Call the 24-hour hour crisis hotline for domestic abuse at Kamla Sheikh February 24, 2018 12:17
[2018-02-24] MEDS ORDERED: WARF-58 PO (12:59)
[2018-02-24] MEDS ORDERED: WARF-20 PO (12:59)
--- NOTE | 2018-02-24 14:37 | EKG ---
Date Performed: 02/23/2018 Time Performed: 19:11:17 PTAGE: 87 years EKG: ELECTRONIC ATRIAL PACEMAKER ELECTRONIC VENTRICULAR PACEMAKER When compared to previous trac ing, AV pacing is now seen. ABNORMAL RHYTHM ECG PREVIOUS TRACING : 04/15/2001 07.46 DOCTOR: Imer Lopez Interpretating Date/Time 02/24/2018 14:35:33
[2018-02-24] MEDS ORDERED: WARFARIN SOD 3 MG TAB PO ONE (16:00)
== END 2018-02-24 14:18 | disposition home or self-care (01) ==
LOC: PHED 17:28 → PHEDA 19:10 → PH3B 21:08
PROVIDERS: ADMIT Hospitalist; ATTEND Hospitalist
DX: T82.838A Hemorrhage due to vascular prosthetic devices, implants and grafts, initial encounter (principal); I13.2 Hypertensive heart and chronic kidney disease with heart failure and with stage 5 chronic kidney disease, or end stage renal disease; N18.6 End stage renal disease; I50.9 Heart failure, unspecified; D63.1 Anemia in chronic kidney disease; E11.22 Type 2 diabetes mellitus with diabetic chronic kidney disease; R79.1 Abnormal coagulation profile; I25.10 Atherosclerotic heart disease of native coronary artery without angina pectoris; I48.91 Unspecified atrial fibrillation; E78.5 Hyperlipidemia, unspecified; K21.9 Gastro-esophageal reflux disease without esophagitis; Y84.1 Kidney dialysis as the cause of abnormal reaction of the patient, or of later complication, without mention of misadventure at the time of the procedure; Z79.01 Long term (current) use of anticoagulants; Z95.2 Presence of prosthetic heart valve; Z99.2 Dependence on renal dialysis
CPT/HCPCS: 80048; 85025; 85610; 90935; 93005; 96360; 96361; 96374; 99285; G0378; J7030; Q4081

== ENCOUNTER 2018-03-25 19:17 | Observation (INO) | payer MEDICARE, BC ==
[2018-03-25] VITALS (7 sets, daily range): BP systolic 107–130; BP diastolic 52–61; PULSE 80–84; RESP 16–18; TEMP 98; O2SAT 88–95
[~2018-03-25] VITALS: Ht 175.3 cm; Wt 90.4 kg
[~2018-03-25 19:17] MED LIST changes: +ASPI81CH6 PO; -CARV12.52 PO; +CARV3.12 PO; -CHEL50TA PO; -FERR140T PO; +FINA5TAB2 PO; +IRON18TA PO; +ISOS30TA3 PO; -JANU50TA PO; -LISI2.5T55 PO; -METO50TA PO; -OMEP20TA39 PO; -PRAV10 PO; +PRAV10TA PO; -PROS5TAB2 PO; +SEVEL800 PO; +SITA50 PO; +TAMS0.4C4 PO; -TAMS0.4C67 PO; +TRAZ50TA12 PO; -TRAZ50TA4 PO; +WARF-20 PO; +WARF-58 PO; -WARF2TAB PO; +ZINCLOZ8 PO; +ZOLP5TAB3 PO
[2018-03-25] MEDS ORDERED: CARV6.252 PO (20:01)
[2018-03-25] MEDS ORDERED: WARF-60 PO (20:01)
[2018-03-25 21:29] LABS: AUTOMATED NEUTROPHIL # 3.9 TH/MM3 (1.8-7.7); BASOPHIL # 0.1 TH/MM3 (0-0.2); BASOPHIL % 1.2 % (0.0-2.0); EOSINOPHIL # 0.3 TH/MM3 (0-0.4); EOSINOPHIL % 6.1 % (0.0-4.0); HEMATOCRIT 28.2 % (39.0-51.0); HEMOGLOBIN 8.8 GM/DL (13.0-17.0); LYMPH % 9.8 % (9.0-44.0); LYMPHOCYTE # 0.5 TH/MM3 (1.0-4.8); MEAN CELL VOLUME 96.2 FL (80.0-100.0); MEAN CORPUSCULAR HEMOGLOBIN 30.1 PG (27.0-34.0); MEAN CORPUSCULAR HGB CONC 31.3 % (32.0-36.0); MEAN PLATELET VOLUME 8.4 FL (7.0-11.0); MONO % 10.2 % (0.0-8.0); MONOCYTE # 0.6 TH/MM3 (0-0.9); NEUT % 72.7 % (16.0-70.0); PLATELET COUNT 153 TH/MM3 (150-450); RED BLOOD COUNT 2.94 MIL/MM3 (4.50-5.90); RED CELL DISTRIBUTION WIDTH 14.9 % (11.6-17.2); WHITE BLOOD COUNT 5.4 TH/MM3 (4.0-11.0)
[2018-03-25] MEDS ORDERED: FUROSEMIDE 100 MG/10 ML VIAL IVP ONE (21:30)
[2018-03-25] MEDS ORDERED: SODIUM CHLORIDE 0.9% FLUSH 10 ML FLUSH IVF PRN (21:30)
[2018-03-25 21:43] LABS: CALCIUM 9.2 MG/DL (8.5-10.1)
[2018-03-25 21:44] LABS: BICARBONATE 27.3 MEQ/L (21.0-32.0)
--- NOTE | 2018-03-25 21:44 | RADRPT ---
EXAM DATE: 03/25/2018 9:40 PM EDT AGE/SEX: 87 years / Male INDICATIONS: Swelling of legs. CLINICAL DATA: This is the patient's initial encounter. Patient reports that signs and symptoms have been present for 2 days and indicates a pain score of 2/10. MEDICAL/SURGICAL HISTORY: Cardiovascular disease. . CABG, pacemaker COMPARISON: No prior [place] exams available for comparison. FINDINGS: Bibasilar patchiness is noted consistent with possible pneumonia. Clinical correlation is recommended . The heart is enlarged. Median sternotomy wires are noted status post cardiac surgery. Right subclav gideon multilead pacemaker has its tips in right atrium and right ventricle. CONCLUSION: 1. Basilar patchiness consistent with possible pneumonia. Clinical correlation is recommended. 2. Cardiomegaly. Electronically signed by: Ralph Stephenson MD 03/25/2018 9:42 PM EDT
[2018-03-25] MEDS ORDERED: FUROSEMIDE 40 MG/4 ML VIAL IV PUSH ONE (21:45)
[2018-03-25 21:47] LABS: PROTHROMBIN TIME - PATIENT 97.7 SEC (9.8-11.6)
[2018-03-25 21:48] LABS: CREATININE 6.9 MG/DL (0.60-1.30)
[2018-03-25 21:51] LABS: INTERNATIONAL NORMALIZED RATIO 9.8 RATIO
[2018-03-25] MEDS ORDERED: ACETAMINOPHEN 325 MG TAB PO PRN (22:30)
[2018-03-25] MEDS ORDERED: ACETAMINOPHEN/HYDROcodone 325 MG/10 MG TAB PO PRN (22:30)
[2018-03-25] MEDS ORDERED: BISACODYL 10 MG SUPP RECTAL PRN (22:30)
[2018-03-25] MEDS ORDERED: METOCLOPRAMIDE HCL 10 MG/2 ML VIAL IV PUSH PRN (22:30)
[2018-03-25] MEDS: traZODone HCL 50 MG TAB PO SCH (22:30)
[2018-03-25] MEDS ORDERED: LACTULOSE SYRUP 20 GM/30 ML CUP PO PRN (22:30)
[2018-03-25] MEDS ORDERED: DEXTROSE 50% IN WATER 50 ML VIAL(D50) IV PUSH PRN (22:30)
[2018-03-25] MEDS ORDERED: SENNOSIDES 8.6 MG TAB PO PRN (22:30)
[2018-03-25] MEDS ORDERED: GLUCAGON 1 MG/ML VIAL OTHER PRN (22:30)
[2018-03-25] MEDS ORDERED: MAGNESIUM HYDROXIDE SUSP 30 ML CUP PO PRN (22:30)
[2018-03-25] MEDS ORDERED: ACETAMINOPHEN/HYDROcodone 325 MG/5 MG TAB PO PRN (22:30)
[2018-03-25] MEDS ORDERED: SODIUM CHLORIDE 0.9% FLUSH 10 ML FLUSH IV FLUSH PRN (22:30)
--- NOTE | 2018-03-25 22:35 | PD ---
HPI Chief Complaint: Edema Time Seen by Provider: 21:16 Travel History International Travel<30 days: No Contact w/Intl Traveler<30days: No Traveled to known affect area: No History of Present Illness HPI 87-year-old male presents to the emergency department by private transportation the care of his spouse for evaluation of progressive swelling of the lower extremities over the past few days. Patient has history of congestive heart failure and has history of 2 pillow orthopnea. No PND no dyspnea on exertion decided finally to come into the emergency room as he noticed some weeping from the left lower extremity. Patient also noticed some scant bleeding from the areas of weeping. Patient denies chest pain or new shortness of breath. Patient is a dialysis patient undergoes hemodialysis Monday and Monday was dialyzed on Monday was noted to have swelling at that time and was encouraged to decrease oral intake. Patient states he always drinks more than he is encouraged to drink because he feels dehydrated all the time. Patient has not had no change in his medications took his last dose of warfarin at 6 PM. Patient has not noticed any new bleeding such as epistaxis, bleeding hemoptysis hematemesis coffee-ground emesis melena hematochezia or hematuria. Patient still produces urine approximately once daily. Patient's had no fever chills. Patient has not noticed any ascending erythema of the left lower extremity has noted some mild erythema of the left foot and anterior lower leg denies any pain. Patient is followed by Dr. Shannon as his electrical tester battery and Dr. Cordero as his taxation consultant and Dr. Flynn is his primary care provider. [facility] Past Medical History Narrative Medical CAD hypertension dyslipidemia diabetes aortic valve replacement mitral valve replacement warfarin therapy; nursing notes reviewed Hx Anticoagulant Therapy: Yes Arthritis: No Asthma: No Heart Rhythm Problems: No Cancer: No Cardiac Catheterization: Yes Cardiovascular Problems: Yes (STENTS/BYPASS) High Cholesterol: Yes Chest Pain: No Congestive Heart Failure: No COPD: No Coronary Artery Disease: Yes Diabetes: Yes Patient Takes Glucophage: No Dialysis: Yes (--) Diminished Hearing: No GERD: Yes Genitourinary: Yes Hypertension: Yes Implanted Vascular Access Dvce: Yes Kidney Stones: No Musculoskeletal: Yes Neurologic: No Psychiatric: No Reproductive: No Respiratory: Yes Renal Failure: Yes (FISTULA/DIALYSIS) Sleep Apnea: No Tetanus Vaccination: > 5 Years Influenza Vaccination: No Past Surgical History Abdominal Surgery: No AICD: Yes Arteriovenous Shunt: Yes Cardiac Surgery: Yes (4 vessel cabg then 2 valve replaced) Coronary Artery Bypass Graft: Yes (X 4 VESSELS) Ear Surgery: No Endocrine Surgery: No Eye Surgery: No Genitourinary Surgery: No Gynecologic Surgery: No Insulin Pump: No Joint Replacement: No Oral Surgery: No Pacemaker: Yes (aicd) Thoracic Surgery: No Valve Replacement: Yes (MVR, AV REPAIR) Other Surgery: Yes (AV FISTULA LUE) Social History Alcohol Use: No Tobacco Use: No Substance Use: No Allergies-Medications (Allergen,Severity, Reaction): Coded Allergies: simvastatin (Verified Allergy, Severe, WEAKNESS, 03/25/18) Reported Meds & Prescriptions Reported Meds & Active Scripts Active Warfarin 3 Mg Tab 3 Mg PO EVERY OTHER DAY Reported Warfarin 6 Mg Tab 6 Mg PO EVERY OTHER DAY Carvedilol 6.25 Mg Tab 6.25 Mg PO BID Zolpidem (Zolpidem Tartrate) 5 Mg Tab 5 Mg PO HS PRN Renvela (Sevelamer Carbonate) 800 Mg Tab 800 Mg PO TID Isosorbide Mononitrate ER (Isosorbide Mononitrate) 30 Mg Melanie 30 Mg PO DAILY Tamsulosin (Tamsulosin HCl) 0.4 Mg Cap 0.4 Mg PO HS Pravastatin 10 Mg Tab 10 Mg PO DAILY Trazodone (Trazodone HCl) 50 Mg Tab 50 Mg PO HS Finasteride 5 Mg Tab 5 Mg PO DAILY Do not crush. [Zinc] 50 Mg PO DAILY Aspirin Low Dose (Aspirin) 81 Mg Chew 81 Mg PO DAILY Iron (Ferrous Sulfate) 18 Mg Tab 65 Mg PO DAILY Januvia (Sitagliptin Phosphate) 50 Mg Tab 50 Mg PO DAILY Review of Systems Except as stated in HPI: all other systems reviewed are Neg General / Constitutional: No: Fever, Chills HENT: No: Congestion, Nosebleed, Gingival Bleeding Cardiovascular: No: Chest Pain or Discomfort Respiratory: No: Shortness of Breath, Hemoptysis Gastrointestinal: No: Vomiting, Abdominal Pain, Hematemesis, Hematochezia Genitourinary: No: Hematuria, Decreased Urinary Output Musculoskeletal: Positive: Edema, No: Pain Skin: Positive Rash (LLE w/ drainage) Neurologic: No: Weakness, Dizziness Psychiatric: No: Anxiety Hematologic/Lymphatic: No: Easy Bruising Physical Exam Narrative GENERAL: Well-developed well-nourished male in no acute distress no respiratory distress SKIN: Warm and dry. HEAD: Normocephalic. EYES: No scleral icterus. No injection or drainage. NECK: Supple, trachea midline. No JVD or lymphadenopathy. CARDIOVASCULAR: Regular rate and rhythm without murmurs, gallops, or rubs. RESPIRATORY: Breath sounds equal bilaterally. No accessory muscle use. GASTROINTESTINAL: Abdomen soft, non-tender, nondistended. MUSCULOSKELETAL: No cyanosis, bilateral lower leg and pedal edema with mild serous drainage from the left lower extremity with mild erythema, no increased warmth, no abrasion or ecchymosis, non-tender to palpation, no posterior calf cording, negative Murray's; bilateral capillary refill brisk and less than 2 seconds. BACK: Nontender without obvious deformity. No CVA tenderness. Data Data Last Documented VS Vital Signs Date Time Temp Pulse Resp B/P (MAP) Pulse Ox O2 Delivery O2 Flow Rate FiO2 03/25/18 22:50 81 16 107/54 (71) 93 Room Air 03/25/18 19:21 98.0 Orders Orders Complete Blood Count With Diff (03/25/18 21:16) Basic Metabolic Panel (Bmp) (03/25/18 21:16) Iv Access Insert/Monitor (03/25/18 21:16) Electrocardiogram (03/25/18 21:16) Ecg Monitoring (03/25/18 21:16) Oximetry (03/25/18 21:16) Oxygen Administration (03/25/18 21:16) Chest, Single Ap (03/25/18 21:16) Sodium Chloride 0.9% Flush (Ns Flush) (03/25/18 21:30) Prothrombin Time / Inr (Pt) (03/25/18 21:16) Furosemide Inj (Lasix Inj) (03/25/18 21:45) Bedside Glucose LUAN.CSUGAR (03/25/18 22:29) Blood Glucose Goal (Criteria) (03/25/18 22:29) Hypoglycemia 70 Mg/Dl Or < (03/25/18 22:29) Notify Dr: Other (03/25/18 22:29) Dextrose 50% In Sujata (Vial) Inj (D50w (Vi (03/25/18 22:30) Glucagon Inj (Glucagon Inj) (03/25/18 22:30) Insulin Aspart Supplemtl Scale (Novolog (03/26/18 08:00) Consult Nephrology (03/25/18 ) Place In Observation (03/25/18 ) Vital Signs (Adult) Q4H (03/25/18 22:29) Activity Oob With Assistance (03/25/18 22:29) Negative Retoucher / Telemetry .CONTINUOUS (03/25/18:29) Intake + Output LUAN.QSHIFT (03/25/18 22:29) Sodium Chloride 0.9% Flush (Ns Flush) (03/25/18 22:30) Sodium Chloride 0.9% Flush (Ns Flush) (03/26/18 09:00) Metoclopramide Inj (Reglan Inj) (03/25/18 22:30) Comprehensive Metabolic Panel (03/26/18 06:00) Complete Blood Count With Diff (03/26/18 06:00) Prothrombin Time / Inr (Pt) (03/26/18 06:00) Pt Request For Service (03/25/18 22:29) Case Management Consult (03/25/18 22:29) Pharmacologic Contraindication (03/25/18 22:29) Acetaminophen (Tylenol) (03/25/18 22:30) Acetamin-Hydrocod 325-5 Mg (Glide 5-325 (03/25/18 22:30) Acetamin-Hydrocod 325-10 Mg (Glide 10-32 (03/25/18 22:30) Docusate Sodium-Senna (Tammie-Colace) (03/26/18 09:00) Magnesium Hydroxide Liq (Milk Of Magnesi (03/25/18 22:30) Sennosides (Senokot) (03/25/18 22:30) Bisacodyl Supp (Dulcolax Supp) (03/25/18 22:30) Lactulose Liq (Lactulose Liq) (03/25/18 22:30) Carvedilol (Coreg) (03/26/18 09:00) Finasteride (Proscar) (03/26/18 09:00) Isosorbide Mononitrate (Imdur) (03/26/18 09:00) Sevelamer (Renvela) (03/26/18 09:00) Sitagliptin (Januvia) (03/26/18 09:00) Tamsulosin (Flomax) (03/26/18 21:00) Trazodone (Desyrel) (03/25/18 22:30) (Hub Use Only)Inp Phy Cons/Ref (03/25/18 ) Admit Order (Ed Use Only) (03/25/18 ) Negative Retoucher / Telemetry LUAN.Q8H (03/25/18 23:25) Diet Heart Healthy (03/26/18 Breakfast) Activity Oob With Assistance (03/25/18 23:25) Notify Dr: Other (03/25/18 23:25) Labs Laboratory Tests Test 03/25/18 21:20 White Blood Count 5.4 TH/MM3 Red Blood Count 2.94 MIL/MM3 Hemoglobin 8.8 GM/DL Hematocrit 28.2 % Mean Corpuscular Volume 96.2 FL Mean Corpuscular Hemoglobin 30.1 PG Mean Corpuscular Hemoglobin Concent 31.3 % Red Cell Distribution Width 14.9 % Platelet Count 153 TH/MM3 Mean Platelet Volume 8.4 FL Neutrophils (%) (Auto) 72.7 % Lymphocytes (%) (Auto) 9.8 % Monocytes (%) (Auto) 10.2 % Eosinophils (%) (Auto) 6.1 % Basophils (%) (Auto) 1.2 % Neutrophils # (Auto) 3.9 TH/MM3 Lymphocytes # (Auto) 0.5 TH/MM3 Monocytes # (Auto) 0.6 TH/MM3 Eosinophils # (Auto) 0.3 TH/MM3 Basophils # (Auto) 0.1 TH/MM3 CBC Comment DIFF FINAL Differential Comment Prothrombin Time 97.7 SEC Prothromb Time International Ratio 9.8 RATIO Blood Urea Nitrogen 36 MG/DL Creatinine 6.90 MG/DL Random Glucose 145 MG/DL Calcium Level 9.2 MG/DL Sodium Level 137 MEQ/L Potassium Level 4.4 MEQ/L Chloride Level 102 MEQ/L Carbon Dioxide Level 27.3 MEQ/L Anion Gap 8 MEQ/L Estimat Glomerular Filtration Rate 8 ML/MIN MDM Medical Decision Making Medical Screen Exam Complete: Yes Emergency Medical Condition: Yes Medical Record Reviewed: Yes Interpretation(s) Last Impressions Chest X-Ray 03/25/18 2115 Signed Impressions: CONCLUSION: 1. Basilar patchiness consistent with possible pneumonia. Clinical correlation is recommended. 2. Cardiomegaly. EKG: Ventricular paced rhythm rate 83 Vital Signs Date Time Temp Pulse Resp B/P (MAP) Pulse Ox O2 Delivery O2 Flow Rate FiO2 03/25/18 22:50 81 16 107/54 (71) 93 Room Air 03/25/18 21:44 84 16 108/55 (72) 93 Room Air 03/25/18 21:28 95 Room Air 03/25/18 21:27 16 95 Room Air 03/25/18 20:50 80 18 119/54 (75) 95 Room Air 03/25/18 20:02 Room Air 03/25/18 19:55 81 18 109/55 (73) 94 Room Air 03/25/18 19:21 98.0 80 18 130/61 (84) 88 Vital Signs Date Time Temp Pulse Resp B/P (MAP) Pulse Ox O2 Delivery O2 Flow Rate FiO2 03/25/18 22:50 81 16 107/54 (71) 93 Room Air 03/25/18 21:44 84 16 108/55 (72) 93 Room Air 03/25/18 21:28 95 Room Air 03/25/18 21:27 16 95 Room Air 03/25/18 20:50 80 18 119/54 (75) 95 Room Air 03/25/18 20:02 Room Air 03/25/18 19:55 81 18 109/55 (73) 94 Room Air 03/25/18 19:21 98.0 80 18 130/61 (84) 88 CBC & BMP Diagram 03/25/18 21:20 Calcium Level 9.2 Differential Diagnosis Peripheral edema, CHF, volume overload, coagulopathy, anemia, dermatitis, cellulitis, dvt Narrative Course Specimens collected and sent for resulting CBC with automated differential remarkable for anemia consistent with chronic renal disease Metabolic panel elevated BUN and creatinine consistent with kidney failure on hemodialysis Chest x-ray shows some patchy infiltrates probably some mild vascular congestion consistent with volume overload but no clinical findings suggest patient needs emergent hematuria INR: 9.8 last warfarin 6pm 03/25/18, s/p heart valve replacement (mitral and aortic) will hold coumadin, no need for ffp at this time and due to avr/mvr will defer vit k - OBS recheck INR, discussed with WANDA PINTO, Dr Mazal Physician Communication Physician Communication discussed with WANDA PINTO for OBS Diagnosis Primary Impression: Warfarin-induced coagulopathy Additional Impressions: Hemodialysis patient Venous stasis dermatitis of both lower extremities Admitting Information Admitting Physician Requests: Observation Lenore Marinelli MD Mar 25, 2018 22:34
[2018-03-26] VITALS (7 sets, daily range): BP systolic 105–128; BP diastolic 53–59; PULSE 78–85; RESP 19–20; TEMP 96–97.7; O2SAT 93–98
[2018-03-26 05:00] LABS: AUTOMATED NEUTROPHIL # 4.1 TH/MM3 (1.8-7.7); BASOPHIL % 0.8 % (0.0-2.0); EOSINOPHIL # 0.4 TH/MM3 (0-0.4); EOSINOPHIL % 5.9 % (0.0-4.0); HEMATOCRIT 25.6 % (39.0-51.0); HEMOGLOBIN 8.5 GM/DL (13.0-17.0); LYMPH % 13.7 % (9.0-44.0); LYMPHOCYTE # 0.8 TH/MM3 (1.0-4.8); MEAN CELL VOLUME 96.5 FL (80.0-100.0); MEAN CORPUSCULAR HEMOGLOBIN 31.9 PG (27.0-34.0); MEAN CORPUSCULAR HGB CONC 33.1 % (32.0-36.0); MEAN PLATELET VOLUME 8.4 FL (7.0-11.0); MONO % 11.5 % (0.0-8.0); MONOCYTE # 0.7 TH/MM3 (0-0.9); NEUT % 68.1 % (16.0-70.0); PLATELET COUNT 149 TH/MM3 (150-450); RED BLOOD COUNT 2.65 MIL/MM3 (4.50-5.90); RED CELL DISTRIBUTION WIDTH 15.1 % (11.6-17.2)
[2018-03-26 05:08] LABS: CHLORIDE 106 MEQ/L (98-107); SODIUM (NA) 138 MEQ/L (136-145)
[2018-03-26 05:12] LABS: ALBUMIN 3.1 GM/DL (3.4-5.0); BICARBONATE 23.9 MEQ/L (21.0-32.0); BLOOD UREA NITROGEN 39 MG/DL (7-18); CALCIUM 8.9 MG/DL (8.5-10.1); GLUCOSE,RANDOM 110 MG/DL (74-106)
[2018-03-26 05:15] LABS: ALT (GPT) 21 U/L (12-78); AST (GOT) 16 U/L (15-37); PROTHROMBIN TIME - PATIENT 83.1 SEC (9.8-11.6)
[2018-03-26 05:16] LABS: GLOMERULAR FILTRATION RATE 7 ML/MIN (>89)
[2018-03-26 05:17] LABS: TOTAL BILIRUBIN ADULT 1.1 MG/DL (0.2-1.0); TOTAL PROTEIN 6.6 GM/DL (6.4-8.2)
[2018-03-26 05:18] LABS: ALKALINE PHOSPHATASE 200 U/L (45-117)
[2018-03-26 05:24] LABS: INTERNATIONAL NORMALIZED RATIO 8.3 RATIO
[2018-03-26] MEDS: INSULIN ASPART SUPPLEMENTAL SCALE SQ SCH ×4 (08:00→20:54)
[2018-03-26] MEDS: DOCUSATE SODIUM 50 MG/SENNA 8.6 MG TAB PO SCH ×2 (08:04→20:52)
[2018-03-26] MEDS: CARVEDILOL 6.25 MG TAB PO SCH ×2 (09:45→20:51)
[2018-03-26] MEDS: SODIUM CHLORIDE 0.9% FLUSH 10 ML FLUSH IV FLUSH SCH ×2 (09:45→19:34)
[2018-03-26] MEDS: SEVELAMER CARBONATE 800 MG TAB PO SCH ×3 (09:45→16:58)
[2018-03-26] MEDS: FINASTERIDE 5 MG TAB PO SCH (09:46)
[2018-03-26] MEDS: ISOSORBIDE MONONITRATE 30 MG CR TAB (IMDUR) PO SCH (09:50)
[2018-03-26] MEDS ORDERED: SODIUM CHLOR 0.9% 1000 ML INJ 1,000 ML IV PRN (10:38)
[2018-03-26] MEDS ORDERED: SODIUM CHLOR 0.9% 1000 ML INJ 1,000 ML OTHER PRN ×2 (10:38)
[2018-03-26] MEDS ORDERED: MANNITOL 12.5 GM/50 ML VIAL IV PRN (10:45)
[2018-03-26] MEDS ORDERED: GELATIN 12 MM/7 MM FOAM TOP PRN (10:45)
[2018-03-26] MEDS ORDERED: cloNIDine HCL 0.1 MG TAB PO PRN (10:45)
[2018-03-26] MEDS ORDERED: diphenhydrAMINE HCL 25 MG CAP PO PRN (10:45)
[2018-03-26] MEDS ORDERED: ACETAMINOPHEN 325 MG TAB PO PRN (10:45)
[2018-03-26] MEDS ORDERED: NITROGLYCERIN 0.4 MG SL 25 TABS/BTL SL PRN (10:45)
[2018-03-26] MEDS ORDERED: GENTAMICIN SULFATE 20 MG/2 ML VIAL OTHER PRN (10:45)
[2018-03-26] MEDS ORDERED: HEPARIN SODIUM - IV 10,000 UNITS/10 ML VIAL PRN (10:45)
[2018-03-26] MEDS ORDERED: SODIUM CHLORIDE 0.9% FLUSH 10 ML FLUSH IV FLUSH PRN (10:45)
[2018-03-26] MEDS ORDERED: EPOETIN ALFA 10,000 UNITS/ML VIAL IV PUSH PRN (10:45)
[2018-03-26] MEDS ORDERED: HEPARIN SODIUM - IV 10,000 UNITS/10 ML VIAL IV FLUSH PRN (10:45)
[2018-03-26] MEDS ORDERED: ONDANSETRON HCL 4 MG/2 ML VIAL IV PUSH PRN (10:45)
[2018-03-26] MEDS ORDERED: ALBUMIN 25% INJ 100 ML IV PRN (10:45)
[2018-03-26 11:12] LABS: INTERNATIONAL NORMALIZED RATIO 8.3 RATIO
--- NOTE | 2018-03-26 12:11 | EKG ---
Date Performed: 03/25/2018 Time Performed: 21:28:35 PTAGE: 87 years EKG: ELECTRONIC ATRIAL PACEMAKER ELECTRONIC VENTRICULAR PACEMAKER ABNORMAL RHYTHM ECG PREVIOUS TRACING : 02/23/2018 19.11 Since the previous tracing, no significant change noted DOCTOR: Hernesto Raymundo Interpretating Date/Time 03/26/2018 12:09:33
--- NOTE | 2018-03-26 12:15 | HHI.HP ---
HPI Service [facility] Primary Care Physician Armand Flynn DO Admission Diagnosis Coumadin coagulopathy; BLE edema; h/o crf w/ hd Diagnoses: Chief Complaint: Edema Travel History International Travel<30 Days: No Contact w/Intl Traveler <30 Da: No Traveled to Known Affected Are: No History of Present Illness Patient is a very pleasant 87-year-old gentleman with a history of coronary artery disease and chronic edema in the lower extremities who is coming in with the same but worse per his baseline. Patient was evaluated in the emergency room and had an INR which was quite elevated with over 9. Patient has no active bleeding. No intestinal bleeding, no epistaxis no hematemesis. He does remember that his INR was elevated before and recently his doses of Coumadin were changed but he is not sure of the details. He depends quite a bit on his to administer his medications. I did call his and they are unavailable at this time by telephone. Patient has a history of atrial and mitral valve replacement and presumably has been on Coumadin for this. He denies atrial fibrillation but there is some mention in the record that he has atrial fibrillation. Repeat INR is 8.3. Patient is also a hemodialysis patient and is expected to have hemodialysis this afternoon. Patient himself is quite comfortable and has no major complaints other than his lower extremity edema and he thought there was some weeping on the left leg. He has been involved in physical therapy but his functional status is moderate. Due to his elevated INR is recommended for further observation Review of Systems Constitutional: DENIES: Diaphoretic episodes, Fatigue, Fever, Weight gain, Weight loss, Chills, Dizziness, Change in appetite, Night Sweats Endocrine: DENIES: Heat/cold intolerance, Polydipsia, Polyuria, Polyphagia Eyes: DENIES: Blurred vision, Diplopia, Eye inflammation, Eye pain, Vision loss , Photosensitivity, Double Vision Ears, nose, mouth, throat: DENIES: Tinnitus, Hearing loss, Vertigo, Nasal discharge, Oral lesions, Throat pain, Hoarseness, Ear Pain, Running Nose, Epistaxis, Sinus Pain, Toothache, Odynophagia Respiratory: DENIES: Apneas, Cough, Snoring, Wheezing, Hemoptysis, Sputum production, Shortness of breath Cardiovascular: COMPLAINS OF: Lower Extremity Edema, DENIES: Chest pain, Palpitations, Syncope, Dyspnea on Exertion, PND, Orthopnea, Claudication Gastrointestinal: DENIES: Abdominal pain, Black stools, Bloody stools, Constipation, Diarrhea, Nausea, Vomiting, Difficulty Swallowing, Anorexia Genitourinary: DENIES: Sexual dysfunction, Urinary frequency, Urinary incontinence, Urgency, Hematuria, Dysuria, Nocturia, Penile Discharge, Testicular Pain, Testicular Swelling Musculoskeletal: DENIES: Joint pain, Muscle aches, Stiffness, Joint Swelling, Back pain, Neck pain Integumentary: DENIES: Abnormal pigmentation, Nail changes, Pruritus, Rash Hematologic/lymphatic: DENIES: Bruising, Lymphadenopathy Immunologic/allergic: DENIES: Eczema, Urticaria Neurologic: DENIES: Abnormal gait, Headache, Localized weakness, Paresthesias, Seizures, Speech Problems, Tremor, Poor Balance Psychiatric: DENIES: Anxiety, Confusion, Mood changes, Depression, Hallucinations, Agitation, Suicidal Ideation, Homicidal Ideation, Delusions Except as stated in HPI: all other systems reviewed are Neg Past Family Social History Past Medical History Congestive heart failure Coronary artery disease Hypertension Diabetes Aortic and mitral valve disease Chronic Coumadin therapy End-stage renal disease Past Surgical History CABG Left AV fistula AV/MV repair Reported Medications Reviewed in the EMR Allergies: Coded Allergies: simvastatin (Verified Allergy, Severe, WEAKNESS, 03/25/18) Active Ordered Medications Reviewed in the EMR Family History Mother in her 90s Father in his 70s perhaps from sudden Social History no tobacco no etho Physical Exam Vital Signs Vital Signs Date Time Temp Pulse Resp B/P (MAP) Pulse Ox O2 Delivery O2 Flow Rate FiO2 03/26/18 08:00 97.0 79 19 116/57 (76) 94 03/26/18 00:30 80 03/26/18 00:30 96.0 80 20 120/58 (78) 98 03/26/18 00:29 03/25/18 23:51 80 16 107/52 (70) 92 Room Air 03/25/18 22:50 81 16 107/54 (71) 93 Room Air 03/25/18 21:44 84 16 108/55 (72) 93 Room Air 03/25/18 21:28 95 Room Air 03/25/18 21:27 16 95 Room Air 03/25/18 20:50 80 18 119/54 (75) 95 Room Air 03/25/18 20:02 Room Air 03/25/18 19:55 81 18 109/55 (73) 94 Room Air 03/25/18 19:21 98.0 80 18 130/61 (84) 88 Physical Exam GENERAL: This is a well-nourished, well-developed patient, in no apparent distress. SKIN: bilat dusky legs, No rashes, ecchymoses or lesions. Cool and dry. HEAD: Atraumatic. Normocephalic. No temporal or scalp tenderness. EYES: Pupils equal round and reactive. Extraocular motions intact. No scleral icterus. No injection or drainage. ENT: Nose without bleeding, purulent drainage or septal hematoma. Throat without erythema, tonsillar hypertrophy or exudate. Uvula midline. Airway patent. NECK: Trachea midline. No JVD or lymphadenopathy. Supple, nontender, no meningeal signs. CARDIOVASCULAR: Regular rate and rhythm without murmurs, gallops, or rubs. RESPIRATORY: Clear to auscultation. Breath sounds equal bilaterally. No wheezes , rales, or rhonchi. GASTROINTESTINAL: Abdomen soft, non-tender, nondistended. No hepato-splenomegaly , or palpable masses. No guarding. MUSCULOSKELETAL: Extremities without clubbing, cyanosis, there is +3 edema. No joint tenderness, effusion, or edema noted. No calf tenderness. Negative Homans sign bilaterally. NEUROLOGICAL: Awake and alert. Cranial nerves II through XII intact. Motor and sensory grossly within normal limits. Five out of 5 muscle strength in all muscle groups. Normal speech. Laboratory Laboratory Tests Test 03/25/18 21:20 03/26/18 04:10 03/26/18 10:40 White Blood Count 5.4 6.0 Red Blood Count 2.94 2.65 Hemoglobin 8.8 8.5 Hematocrit 28.2 25.6 Mean Corpuscular Volume 96.2 96.5 Mean Corpuscular Hemoglobin 30.1 31.9 Mean Corpuscular Hemoglobin Concent 31.3 33.1 Red Cell Distribution Width 14.9 15.1 Platelet Count 153 149 Mean Platelet Volume 8.4 8.4 Neutrophils (%) (Auto) 72.7 68.1 Lymphocytes (%) (Auto) 9.8 13.7 Monocytes (%) (Auto) 10.2 11.5 Eosinophils (%) (Auto) 6.1 5.9 Basophils (%) (Auto) 1.2 0.8 Neutrophils # (Auto) 3.9 4.1 Lymphocytes # (Auto) 0.5 0.8 Monocytes # (Auto) 0.6 0.7 Eosinophils # (Auto) 0.3 0.4 Basophils # (Auto) 0.1 0.0 CBC Comment DIFF FINAL DIFF FINAL Differential Comment Prothrombin Time 97.7 83.1 83.0 Prothromb Time International Ratio 9.8 8.3 8.3 Blood Urea Nitrogen 36 39 Creatinine 6.90 7.30 Random Glucose 145 110 Calcium Level 9.2 8.9 Sodium Level 137 138 Potassium Level 4.4 4.7 Chloride Level 102 106 Carbon Dioxide Level 27.3 23.9 Anion Gap 8 8 Estimat Glomerular Filtration Rate 8 7 Total Protein 6.6 Albumin 3.1 Alkaline Phosphatase 200 Aspartate Amino Transf (AST/SGOT) 16 Alanine Aminotransferase (ALT/SGPT) 21 Total Bilirubin 1.1 Result Diagram: 03/26/1840903/26/18409 Imaging Last Impressions Chest X-Ray 03/25/182115 Signed Impressions: CONCLUSION: 1. Basilar patchiness consistent with possible pneumonia. Clinical correlation is recommended. 2. Cardiomegaly. 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
[2018-03-26] MEDS ORDERED: PHYTONADIONE 5 MG/SWFI 5 ML ORAL SYR PO ONE (12:30)
--- NOTE | 2018-03-26 15:28 | PD.CONS ---
HPI Service Nephrology Consult Requested By Reason for Consult ESRD Primary Care Physician Armand Flynn DO History of Present Illness 87 Year old male with A fib, ESRD, came in with Left leg edema greater then right, he has CHF, his INR was also noted to be 9 and he was admitted for congestive heart failure coagulopathy, he goes on dialysis [facility] dialysis center on Monday, Monday and Monday. Past Family Social History Allergies: Coded Allergies: simvastatin (Verified Allergy, Severe, WEAKNESS, 03/25/18) Past Medical History Congestive heart failure Coronary artery disease Hypertension Diabetes Aortic and mitral valve disease Chronic Coumadin therapy End-stage renal disease Past Surgical History CABG Left AV fistula AV/MV repair Reported Medications Reported Meds & Active Scripts Active Warfarin 3 Mg Tab 3 Mg PO EVERY OTHER DAY Reported Warfarin 6 Mg Tab 6 Mg PO EVERY OTHER DAY Carvedilol 6.25 Mg Tab 6.25 Mg PO BID Zolpidem (Zolpidem Tartrate) 5 Mg Tab 5 Mg PO HS PRN Renvela (Sevelamer Carbonate) 800 Mg Tab 800 Mg PO TID Isosorbide Mononitrate ER (Isosorbide Mononitrate) 30 Mg Melanie 30 Mg PO DAILY Tamsulosin (Tamsulosin HCl) 0.4 Mg Cap 0.4 Mg PO HS Pravastatin 10 Mg Tab 10 Mg PO DAILY Trazodone (Trazodone HCl) 50 Mg Tab 50 Mg PO HS Finasteride 5 Mg Tab 5 Mg PO DAILY Do not crush. [Zinc] 50 Mg PO DAILY Aspirin Low Dose (Aspirin) 81 Mg Chew 81 Mg PO DAILY Iron (Ferrous Sulfate) 18 Mg Tab 65 Mg PO DAILY Januvia (Sitagliptin Phosphate) 50 Mg Tab 50 Mg PO DAILY Active Ordered Medications Current Medications Medications (Trade) Dose Ordered Sig/Rayne Route Start Time Stop Time Status Last Admin (D50w (Vial) Inj) 50 ml UNSCH PRN IV PUSH 03/25/18 22:30 (Glucagon Inj) 1 mg UNSCH PRN OTHER 03/25/18 22:30 (NovoLOG SUPPLEMENTAL SCALE) 1 ACHS SLIDING SCALE SQ 03/26/18 08:00 (NS Flush) 2 ml UNSCH PRN IV FLUSH 03/25/18 22:30 (NS Flush) 2 ml BID IV FLUSH 03/26/18 09:00 03/26/18 09:45 (Reglan Inj) 5 mg Q6H PRN IV PUSH 03/25/18 22:30 (Tylenol) 650 mg Q6H PRN PO 03/25/18 22:30 ([place] 5-325 Mg) 1 tab Q4H PRN PO 03/25/18 22:30 ([place] 10-325 Mg) 1 tab Q4H PRN PO 03/25/18 22:30 (Tammie-Colace) 1 tab BID PO 03/26/18 09:00 (Milk Of Magnesia Liq) 30 ml Q12H PRN PO 03/25/18 22:30 (Senokot) 17.2 mg Q12H PRN PO 03/25/18 22:30 (Dulcolax Supp) 10 mg DAILY PRN RECTAL 03/25/18 22:30 (Lactulose Liq) 30 ml DAILY PRN PO 03/25/18 22:30 (Coreg) 6.25 mg BID PO 03/26/18 09:00 03/26/18 09:45 (Proscar) 5 mg DAILY PO 03/26/18 09:00 03/26/18 09:46 (Imdur) 30 mg DAILY@0700 PO 03/26/18 09:00 03/26/18 09:50 (Renvela) 800 mg TID PO 03/26/18 09:00 03/26/18 09:45 (Januvia) 50 mg DAILY PO 03/26/18 09:00 03/26/18 09:45 (Flomax) 0.4 mg HS PO 03/26/18 21:00 (Desyrel) 50 mg HS PO 03/25/18 22:30 Sodium Chloride 1,000 ml @ 0 mls/hr Q0M PRN OTHER 03/26/18 10:38 03/26/18 14:00 (Heparin Inj) 8,000 units UNSCH PRN IV FLUSH 03/26/18 10:45 Sodium Chloride 1,000 ml @ 200 mls/hr Q5H PRN IV 03/26/18 10:38 Sodium Chloride 1,000 ml @ 0 mls/hr Q0M PRN OTHER 03/26/18 10:38 (Mannitol Inj) 12.5 gm UNSCH PRN IV 03/26/18 10:45 Albumin Human 100 ml @ 60 mls/hr UNSCH PRN IV 03/26/18 10:45 (NS Flush) 5 ml UNSCH PRN IV FLUSH 03/26/18 10:45 (Heparin Inj) UNSCH PRN .XX 03/26/18 10:45 (Gentamicin Inj) 20 mg UNSCH PRN OTHER 03/26/18 10:45 (Zofran Inj) 4 mg UNSCH PRN IV PUSH 03/26/18 10:45 (Tylenol) 650 mg UNSCH PRN PO 03/26/18 10:45 (Benadryl) 25 mg UNSCH PRN PO 03/26/18 10:45 (Nitrostat Sl) 0.4 mg UNSCH PRN SL 03/26/18 10:45 (Catapres) 0.1 mg UNSCH PRN PO 03/26/18 10:45 (Epogen Inj) 10,000 units UNSCH PRN IV PUSH 03/26/18 10:45 03/26/18 14:00 (Gelfoam 12 Mm/7 Mm Top) 1 foam UNSCH PRN TOP 03/26/18 10:45 Family History NONCONTRIBUTORY Social History denies smoking or ETOH Physical Exam Vital Signs Vital Signs Date Time Temp Pulse Resp B/P (MAP) Pulse Ox O2 Delivery O2 Flow Rate FiO2 03/26/18 12:00 97.7 80 20 128/59 (82) 98 03/26/18 08:00 97.0 79 19 116/57 (76) 94 03/26/18 00:30 80 03/26/18 00:30 96.0 80 20 120/58 (78) 98 03/26/18 00:29 03/25/18 23:51 80 16 107/52 (70) 92 Room Air 03/25/18 22:50 81 16 107/54 (71) 93 Room Air 03/25/18 21:44 84 16 108/55 (72) 93 Room Air 03/25/18 21:28 95 Room Air 03/25/18 21:27 16 95 Room Air 03/25/18 20:50 80 18 119/54 (75) 95 Room Air 03/25/18 20:02 Room Air 03/25/18 19:55 81 18 109/55 (73) 94 Room Air 03/25/18 19:21 98.0 80 18 130/61 (84) 88 Physical Exam GENERAL: Well-nourished, well-developed patient. SKIN: Warm and dry. HEAD: Normocephalic. EYES: No scleral icterus. No injection or drainage. NECK: Supple, trachea midline. No JVD or lymphadenopathy. CARDIOVASCULAR: IRREGULARLY Irregular RESPIRATORY: Breath sounds equal bilaterally. No accessory muscle use. GASTROINTESTINAL: Abdomen soft, non-tender, nondistended. EXTREMITIES: No cyanosis, 2 plus edema. NEUROLOGICAL: Awake, alert, and oriented x 3. Non-focal. Laboratory Laboratory Tests Test 03/25/18 21:20 03/26/18 04:10 03/26/18 10:40 White Blood Count 5.4 6.0 Red Blood Count 2.94 2.65 Hemoglobin 8.8 8.5 Hematocrit 28.2 25.6 Mean Corpuscular Volume 96.2 96.5 Mean Corpuscular Hemoglobin 30.1 31.9 Mean Corpuscular Hemoglobin Concent 31.3 33.1 Red Cell Distribution Width 14.9 15.1 Platelet Count 153 149 Mean Platelet Volume 8.4 8.4 Neutrophils (%) (Auto) 72.7 68.1 Lymphocytes (%) (Auto) 9.8 13.7 Monocytes (%) (Auto) 10.2 11.5 Eosinophils (%) (Auto) 6.1 5.9 Basophils (%) (Auto) 1.2 0.8 Neutrophils # (Auto) 3.9 4.1 Lymphocytes # (Auto) 0.5 0.8 Monocytes # (Auto) 0.6 0.7 Eosinophils # (Auto) 0.3 0.4 Basophils # (Auto) 0.1 0.0 CBC Comment DIFF FINAL DIFF FINAL Differential Comment Prothrombin Time 97.7 83.1 83.0 Prothromb Time International Ratio 9.8 8.3 8.3 Blood Urea Nitrogen 36 39 Creatinine 6.90 7.30 Random Glucose 145 110 Calcium Level 9.2 8.9 Sodium Level 137 138 Potassium Level 4.4 4.7 Chloride Level 102 106 Carbon Dioxide Level 27.3 23.9 Anion Gap 8 8 Estimat Glomerular Filtration Rate 8 7 Total Protein 6.6 Albumin 3.1 Alkaline Phosphatase 200 Aspartate Amino Transf (AST/SGOT) 16 Alanine Aminotransferase (ALT/SGPT) 21 Total Bilirubin 1.1 Result Diagram: 03/26/1840903/26/18409 Imaging Last Impressions Chest X-Ray 03/25/182115 Signed Impressions: CONCLUSION: 1. Basilar patchiness consistent with possible pneumonia. Clinical correlation is recommended. 2. Cardiomegaly. 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
[2018-03-26] MEDS: traZODone HCL 50 MG TAB PO SCH (20:51)
[2018-03-26] MEDS ORDERED: TAMSULOSIN HCL 0.4 MG CAP PO SCH (21:00)
[2018-03-27] VITALS: BP 116/59; PULSE 82; RESP 20; TEMP 97.1; O2SAT 97
[2018-03-27] MEDS ORDERED: MELATONIN 5 MG TAB PO ONE (02:15)
[2018-03-27 04:00] VITALS: BP 109/68; PULSE 82; RESP 20; TEMP 96.4; O2SAT 92
[2018-03-27] MEDS: ISOSORBIDE MONONITRATE 30 MG CR TAB (IMDUR) PO SCH (05:09)
[2018-03-27 06:48] LABS: INTERNATIONAL NORMALIZED RATIO 2.7 RATIO; PROTHROMBIN TIME - PATIENT 27.3 SEC (9.8-11.6)
[2018-03-27] MEDS: INSULIN ASPART SUPPLEMENTAL SCALE SQ SCH (07:59)
[2018-03-27 08:00] VITALS: BP 115/59; PULSE 83; RESP 19; TEMP 98.2; O2SAT 97
[2018-03-27] MEDS: CARVEDILOL 6.25 MG TAB PO SCH (08:00)
[2018-03-27] MEDS: FINASTERIDE 5 MG TAB PO SCH (08:01)
[2018-03-27] MEDS: SEVELAMER CARBONATE 800 MG TAB PO SCH ×2 (08:01→11:38)
[2018-03-27] MEDS: SODIUM CHLORIDE 0.9% FLUSH 10 ML FLUSH IV FLUSH SCH (08:01)
[2018-03-27] MEDS: DOCUSATE SODIUM 50 MG/SENNA 8.6 MG TAB PO SCH (08:02)
[2018-03-27] MEDS ORDERED: WARF-58 PO (09:54)
--- NOTE | 2018-03-27 09:55 | HHI.DCPOC ---
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 Avoid second hand smoke Call the 24-hour hour crisis hotline for domestic abuse at Milli Thornton MD Mar 27, 2018 09:55
--- NOTE | 2018-03-27 09:57 | HHI.FF ---
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 My clinical findings support the need for the requested home health care services because: Limited ability to care for self I certify that my clinical findings support that this patient is homebound because: Need for psychosocial assistance Milli Thornton MD Mar 27, 2018 09:57
--- NOTE | 2018-03-27 10:02 | HHI.PR ---
Subjective Remarks Patient reports he is feeling great. He denies any cough. No episodes of bleeding. INR down to 2.7. He states INR levels has not been well controlled over the past few months. He is advised to follow-up outpatient with cardiology for close monitoring. Objective Vitals Vital Signs Date Time Temp Pulse Resp B/P (MAP) Pulse Ox O2 Delivery O2 Flow Rate FiO2 03/27/18 08:00 98.2 83 19 115/59 (77) 97 03/27/18 04:00 96.4 82 20 109/68 (82) 92 03/27/18 00:00 97.1 82 20 116/59 (78) 97 03/26/18 20:42 96 21 03/26/18 20:00 96.7 78 20 123/56 (78) 93 03/26/18 17:26 85 03/26/18 16:00 97.0 85 20 105/53 (70) 97 03/26/18 12:00 97.7 80 20 128/59 (82) 98 I/O 03/26/18 03/26/18 03/26/18 03/27/18 03/27/18 03/27/18 07:00 15:00 23:00 07:00 15:00 23:00 Intake Total 240 ml 750 ml 240 ml Output Total 3000 ml Balance 240 ml -2250 ml 240 ml Intake Oral 240 ml 750 ml 240 ml Output Hemodialysis 3000 ml # Voids 4 # Bowel Movements 1 1 Result Diagram: 03/26/18 0410 03/26/18 0410 Objective Remarks GENERAL: Elderly and frail male. No acute distress. CARDIOVASCULAR: Normal rate and regular rhythm without murmurs, gallops, or rubs. RESPIRATORY: Good respiratory efforts. Breath sounds equal and clear to auscultation bilaterally. GASTROINTESTINAL: Abdomen soft, non-tender, non-distended. Normal active bowel sounds MUSCULOSKELETAL: Extremities without cyanosis, or edema. NEURO: Alert & Oriented x4 to person, place, time, situation. Moves all ext x4 PSYCH: Appropriate mood and affect. A/P Problem List: (1) Warfarin-induced coagulopathy ICD Code: D68.32 - Hemorrhagic disorder due to extrinsic circulating anticoagulants; T45.515A - Adverse effect of anticoagulants, initial encounter Status: Acute Plan: INR 8.3 on presentation. Patient is unsure about what dose of Coumadin he has been taking. He did states that he has been difficult to control. Status post reversal with vitamin K dx MV/AV INR decreased to 2.7. He is discharged on decreased dose of 3 mg daily and to follow-up outpatient with cardiology for close monitoring. (2) Hemodialysis patient ICD Code: Z99.2 - Dependence on renal dialysis Status: Acute Plan: For hemodialysis Monday and Monday Patient was seen by nephrology. Outpatient hemodialysis as scheduled. 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
== END 2018-03-27 11:56 | disposition home or self-care (01) ==
LOC: PHED 19:17 → PHEDA 23:28 → PH3A 03-26 00:18
PROVIDERS: ADMIT Family Medicine; ATTEND Family Medicine
DX: D68.32 Hemorrhagic disorder due to extrinsic circulating anticoagulants (principal); D68.9 Coagulation defect, unspecified; T45.515A Adverse effect of anticoagulants, initial encounter; I87.2 Venous insufficiency (chronic) (peripheral); M79.89 Other specified soft tissue disorders; I50.9 Heart failure, unspecified; I13.2 Hypertensive heart and chronic kidney disease with heart failure and with stage 5 chronic kidney disease, or end stage renal disease; R06.01 Orthopnea; Z99.2 Dependence on renal dialysis; Z79.01 Long term (current) use of anticoagulants; Z95.2 Presence of prosthetic heart valve; I25.10 Atherosclerotic heart disease of native coronary artery without angina pectoris; N18.6 End stage renal disease; E78.5 Hyperlipidemia, unspecified; E11.22 Type 2 diabetes mellitus with diabetic chronic kidney disease; K21.9 Gastro-esophageal reflux disease without esophagitis; Z79.899 Other long term (current) drug therapy; I08.0 Rheumatic disorders of both mitral and aortic valves; Z95.1 Presence of aortocoronary bypass graft; I48.2 Chronic atrial fibrillation; Z79.84 Long term (current) use of oral hypoglycemic drugs
CPT/HCPCS: 71045; 80048; 80053; 82948; 85025; 85610; 90935; 93005; 96372; 96374; 97162; 99285; G0378; G8987; G8988; J1815; J1940; J7030; Q4081

== ENCOUNTER 2018-08-01 16:36 | Inpatient (IN) ==
--- NOTE | 2018-08-01 17:10 | ED ---
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 Patient states that at dialysis today his hemoglobin was noted to be low and he was instructed to come to the emergency room by his winderman Dr. Millan to get 2 units of red blood cells. Patient does complain of feeling increasingly fatigued over the past week. He states he does have some intermittent black stools. He denies any chest pain, shortness of breath, lightheadedness, dizziness, abdominal pain. No other complaints or concerns. PCP Dr. Jorje Ritter. Related Data Home Medications Medication Instructions Recorded Confirmed apixaban [Eliquis] 2.5 mg PO BID 08/01/18 08/01/18 aspirin [Aspir-81] 81 mg PO DAILY 08/01/18 08/01/18 carvedilol 3.125 mg PO BID 08/01/18 08/01/18 ferrous sulfate [Iron (ferrous 325 mg PO DAILY 08/01/18 08/01/18 sulfate)] isosorbide mononitrate 30 mg PO DAILY 08/01/18 08/01/18 midodrine 10 mg PO WITH DIALYSIS 08/01/18 08/01/18 pravastatin 10 mg PO DAILY 08/01/18 08/01/18 sevelamer carbonate [Renvela] 800 mg PO TID 08/01/18 08/01/18 tamsulosin 0.4 mg PO DAILY 08/01/18 08/01/18 Allergies Allergy/AdvReac Type Severity Reaction Status Date / Time simvastatin Allergy Severe WEAKNESS Verified 08/01/18 17:14 Review of Systems ROS: all other systems reviewed are negative [facility] Medical History Medical History A-fib (Acute) AV fistula (Acute) BPH (benign prostatic hyperplasia) (Acute) Dialysis patient (Acute) ESRD (end stage renal disease) (Acute) Hyperchloremia (Acute) Hypertension (Acute) Surgical History Surgical History Aortic valve replaced (Acute) History of tonsillectomy (Acute) Mitral valve replaced (Acute) Family History Family History Other Family history normal Social History Social History Substance History: No History of Abuse Second Hand Smoke Exposure: No Smoking Status: Former smoker Tobacco Type: Cigarettes How Often Do You Have a Drink Containing Alcohol: 2 to 4 times a month Recent Travel in [facility] within the Last 8 Weeks: No Recent Out of Country Travel within the Last 8 Weeks: No Immunization History Tetanus Immunization: <5 Years Exam Narrative Exam Narrative: GENERAL: Well-nourished and well-developed pleasant elderly male patient in no acute distress who is nontoxic appearing. SKIN: Warm and dry. HEAD: Normocephalic and atraumatic. EYES: No injection, drainage, or hyphema noted. PERRLA. EOMI. ENT: No nasal drainage noted. Oropharynx is clear. NECK: Supple and the trachea is midline. CARDIOVASCULAR: Regular rate and rhythm. RESPIRATORY: Breath sounds are equal bilaterally with no accessory muscle use, wheezing, rhonchi, or crackles. GASTROINTESTINAL: Abdomen is soft, non-tender, and nondistended. RECTAL EXAM: No masses or tenderness, stool is brown. Performed in the presence of nurse. MUSCULOSKELETAL: Edema of bilateral lower extremities, chronic per patient. No obvious deformities, cyanosis, or ecchymosis is present throughout the upper and lower extremities. Patient has full range of motion without any signs of neurovascular compromise. Distal pulses are 2+ throughout. NEUROLOGICAL: Awake, alert, and oriented. Normal speech and gait. Cranial nerves are grossly intact. Procedures Hemaprompt Stool Procedural Steps Taken: specimen placed in appropriate test area, developer placed on specimen and control areas and controls appropriately positive and negative Hemaprompt Stool Result: positive Course Initial Documented Vital Signs Temperature 97.3 F L 08/01/18 16:46 Pulse Rate 81 08/01/18 16:46 Respiratory Rate 18 08/01/18 16:46 Blood Pressure 100/46 L 08/01/18 16:46 Pulse Oximetry 98 10 16:46 Last Documented Vital Signs Temperature 97.7 F 08/01/18 18:41 Pulse Rate 80 08/01/18 19:20 Respiratory Rate 20 08/01/18 19:20 Blood Pressure 107/52 L 08/01/18 19:20 Pulse Oximetry 97 08/01/18 19:20 Medical Decision Making MDM Narrative Medical decision making narrative: 87-year-old male with ESRD on hemodialysis presents to the emergency department for transfusion due to anemia. Patient is afebrile, vital signs are stable. His stool is guaiac positive, he reports intermittent black stools. He is anticoagulated on Eliquis. IV access is obtained, labs of been drawn and sent. Patient is placed on cardiac telemetry and pulse oximetry monitoring. Protonix bolus and drip initiated. CBC shows hemoglobin 6.8, hematocrit 21.1. 3 units of red blood cells ordered, 2 to be transfused now and want to be held. Coags are unremarkable. CMP shows kidney function consistent with ESRD, potassium is a little low at 3.3. He did just receive dialysis today. Chest x-ray shows right lower lung atelectasis/consolidation and a right effusion. Patient transfused 2 units in ED with Lasix 20 mg IV in between. I spoke with Dr. Mercedes [facility] who accepts patient to her service for admission. I spoke with Dr. Andres who agrees with holding Eliquis and he states will take patient for EGD/colonoscopy in the morning. Medical Screen Exam Complete: Yes Emergency Medical Condition: Yes Differential Diagnosis Differential Diagnosis: Symptomatic anemia versus GI bleed versus anemia of chronic disease versus ESRD Lab Data Result diagrams: 08/01/18 17:11 08/01/18 17:11 Lab Results 08/01/18 08/01/18 08/01/18 Range/Units 17:11 17:11 17:11 WBC 7.7 (4.0-11.0) th/mm3 RBC 2.04 L (4.50-5.90) mil/mm3 Hgb 6.8 L* (13.0-17.0) gm/dL Hct 21.1 L (39.0-51.0) % MCV 103.5 H (80.0-100.0) fL MCH 33.5 (27.0-34.0) pg MCHC 32.4 (32.0-36.0) % RDW 18.5 H (11.6-17.2) % Plt Count 161 (150-450) th/mm3 MPV 8.0 (7.0-11.0) fL Prelim Diff (Auto) [employer] Picture Scene [employer] Neut % (Auto) 79.2 H (16.0-70.0) % Lymph % (Auto) 9.4 (9.0-44.0) % [place] % (Auto) 7.5 (0.0-8.0) % Eos % (Auto) 3.0 (0.0-4.0) % Baso % (Auto) 0.9 (0.0-2.0) % Neut # (Auto) 6.1 (1.8-7.7) th/mm3 Lymph # (Auto) 0.7 L (1.0-4.8) th/mm3 [place] # (Auto) 0.6 (0.0-0.9) th/mm3 Eos # (Auto) 0.2 (0.0-0.4) th/mm3 Baso # (Auto) 0.1 (0.0-0.2) th/mm3 WBC Differential . Differential Comment Auto diff final PT 12.0 H (9.8-11.6) sec INR 1.2 Ratio APTT 26.1 (24.3-30.1) sec Sodium 138 (136-145) meq/L Potassium 3.3 L (3.5-5.1) meq/L Chloride 101 (98-107) meq/L Carbon Dioxide 27.1 (21.0-32.0) meq/L Anion Gap 10 (5-15) meq/L BUN 20 H (7-18) mg/dL Creatinine 3.92 H (0.60-1.30) mg/dL Estimated GFR 15 L (>89) mL/min Random Glucose 173 H (74-106) mg/dL Calcium 9.0 (8.5-10.1) mg/dL Total Bilirubin 0.6 (0.2-1.0) mg/dL AST 22 (15-37) U/L ALT 33 (12-78) U/L Alkaline Phosphatase 181 H (45-117) U/L Total Protein 6.6 (6.4-8.2) g/dL Albumin 3.0 L (3.4-5.0) g/dL Blood Type Antibody Screen MTS Gel Crossmatch 08/01/18 08/01/18 Range/Units 17:11 17:55 WBC (4.0-11.0) th/mm3 RBC (4.50-5.90) mil/mm3 Hgb (13.0-17.0) gm/dL Hct (39.0-51.0) % MCV (80.0-100.0) fL MCH (27.0-34.0) pg MCHC (32.0-36.0) % RDW (11.6-17.2) % Plt Count (150-450) th/mm3 MPV (7.0-11.0) fL Prelim Diff (Auto) Neut % (Auto) (16.0-70.0) % Lymph % (Auto) (9.0-44.0) % [place] % (Auto) (0.0-8.0) % Eos % (Auto) (0.0-4.0) % Baso % (Auto) (0.0-2.0) % Neut # (Auto) (1.8-7.7) th/mm3 Lymph # (Auto) (1.0-4.8) th/mm3 [place] # (Auto) (0.0-0.9) th/mm3 Eos # (Auto) (0.0-0.4) th/mm3 Baso # (Auto) (0.0-0.2) th/mm3 WBC Differential Differential Comment PT (9.8-11.6) sec INR Ratio APTT (24.3-30.1) sec Sodium (136-145) meq/L Potassium (3.5-5.1) meq/L Chloride (98-107) meq/L Carbon Dioxide (21.0-32.0) meq/L Anion Gap (5-15) meq/L BUN (7-18) mg/dL Creatinine (0.60-1.30) mg/dL Estimated GFR (>89) mL/min Random Glucose (74-106) mg/dL Calcium (8.5-10.1) mg/dL Total Bilirubin (0.2-1.0) mg/dL AST (15-37) U/L ALT (12-78) U/L Alkaline Phosphatase (45-117) U/L Total Protein (6.4-8.2) g/dL Albumin (3.4-5.0) g/dL Blood Type A Negative Antibody Screen Negative MTS Gel Crossmatch See Detail Imaging Data Radiologist's impression: Chest X-Ray 08/01/18 17:04 CONCLUSION: Cardiomegaly. Right lower lung atelectasis/consolidation and likely right effusion. Discharge Plan Discharge Disposition Patient Disposition: 30 Still Patient Discharge Details Diagnosis: GI bleed, Symptomatic anemia, ESRD (end stage renal disease) on dialysis Physicians Team ED Provider: Nader Prajapati ED Midlevel Provider: Sonia Ritter Primary Care Provider: Armand Flynn Attending Provider: Hannah Mercedes Other Providers: Katlin Andres ; Janeen Millan Discharge Interventions Interventions: Vital Signs Last Done: 08/01/18 19:20 Status ED Status: Admitted Patient
[2018-08-01 17:31] LABS: Baso # (Auto) 0.1 th/mm3 (0.0-0.2); Baso % (Auto) 0.9 % (0.0-2.0); Eos # (Auto) 0.2 th/mm3 (0.0-0.4); Lymph # (Auto) 0.7 th/mm3 (1.0-4.8); Lymph % (Auto) 9.4 % (9.0-44.0); Mean Corpuscular HGB Conc 32.4 % (32.0-36.0); Mean Corpuscular Hemoglobin 33.5 pg (27.0-34.0); Mean Corpuscular Volume 103.5 fL (80.0-100.0); Mono # (Auto) 0.6 th/mm3 (0.0-0.9); Mono % (Auto) 7.5 % (0.0-8.0); Neut # (Auto) 6.1 th/mm3 (1.8-7.7); Neut % (Auto) 79.2 % (16.0-70.0); Platelet Count 161 th/mm3 (150-450); Red Blood Count 2.04 mil/mm3 (4.50-5.90); Red Cell Distribution Width 18.5 % (11.6-17.2); White Blood Count 7.7 th/mm3 (4.0-11.0)
[2018-08-01 17:44] LABS: Activated Partial Thrombo Time 26.1 sec (24.3-30.1); INR 1.2 Ratio
[2018-08-01 17:46] LABS: Alanine Aminotransferase 33 U/L (12-78); Anion Gap 10 meq/L (5-15); Aspartate Aminotransferase 22 U/L (15-37); Blood Urea Nitrogen 20 mg/dL (7-18); Carbon Dioxide 27.1 meq/L (21.0-32.0); Chloride 101 meq/L (98-107); Glomerular Filtration Rate 15 mL/min (>89); Glucose,Random 173 mg/dL (74-106); Hematocrit 21.1 % (39.0-51.0); Hemoglobin 6.8 gm/dL (13.0-17.0); Potassium 3.3 meq/L (3.5-5.1); Sodium 138 meq/L (136-145)
[2018-08-01 17:49] LABS: Alkaline Phosphatase 181 U/L (45-117); Total Protein 6.6 g/dL (6.4-8.2)
[2018-08-01] MEDS ORDERED: Sodium Chlor 0.9% Inj 250 ML IV.SIG SCH (18:00)
--- NOTE | 2018-08-01 18:29 | XR ---
EXAM DATE: 08/01/2018 5:04 PM EDT AGE/SEX: 87 years / Male INDICATIONS: Shortness of breath CLINICAL DATA: This is the patient's initial encounter. Patient reports that signs and symptoms have been present for 1 day and indicates a pain score of 0/10. MEDICAL/SURGICAL HISTORY: Cardiovascular disease. Pacemaker. CABG. COMPARISON: POI, XR CHEST PA AND LAT, 07/09/2018. . FINDINGS: The patient is status post sternotomy. There is a pacing device seen in the right chest. The heart si ze is enlarged. There is increased density at the right base. The left lung is grossly clear. CONCLUSION: Cardiomegaly. Right lower lung atelectasis/consolidation and likely right effusion. Electronically signed by: Jermain Farley MD 08/01/2018 6:28 PM EDT
[2018-08-01] MEDS: Pantoprazole Inj 80 MG in Sodium Chlor 0.9% Inj 100 ML IV.CONT SCH (18:55)
[2018-08-01] MEDS ORDERED: Dextrose 50% in Water 50 ML Vial IV.PUSH PRN (20:17)
--- NOTE | 2018-08-01 20:23 | P.HP ---
History of Present Illness Service: [facility] Primary Care Physician: Armand Flynn DO History of Present Illness: 87-year-old male with a past medical history significant for end-stage renal disease on dialysis Monday, hypertension, hyperlipidemia, atrial fibrillation anticoagulated on Eliquis, diabetes mellitus and coronary artery disease presents to the emergency department for the evaluation of a low hemoglobin. The patient was in dialysis earlier today when he was referred to the emergency department secondary to anemia. He is an extremely poor historian and cannot tell me if he has been having dark stools or blood per rectum. He denies chest pain or shortness of breath. No fatigue or dizziness. No fevers/chills. No abdominal pain. No nausea/vomiting/diarrhea. No lateralizing signs/symptoms. Inpatient Certification: I certify that the inpatient services were ordered in accordance with Medicare regulations governing the order. This includes certification that hospital inpatient services are reasonable and necessary and in the case of services not specified as inpatient-only under 42 CFR 419.22(n), that they are appropriately provided as inpatient services in accordance to with the 2-midnight benchmark under 43 CFR 412.3(e) Estimated Total Length of Stay (Days): 2 Plans for Post Hospital Care: Not yet determined PMFSH - History History Provided By: Patient, Family Member - Medical History Medical History: Medical History (Last Updated 08/01/18 @ 20:20 by Hannah Mercedes MD) A-fib AV fistula BPH (benign prostatic hyperplasia) Dialysis patient ESRD (end stage renal disease) Hyperchloremia Hypertension - Surgical History Surgical History: Surgical History (Last Updated 08/01/18 @ 20:20 by Hannah Mercedes MD) Aortic valve replaced History of tonsillectomy Mitral valve replaced - Family History Family History: Family History (Last Updated 08/01/18 @ 20:20 by Hannah Mercedes MD) Other Family history normal - Tobacco History Second Hand Smoke Exposure: No Tobacco Use In Past 30 Days: No Smoking Status: Former smoker Tobacco Type: Cigarettes - Alcohol History How Often Do You Have a Drink Containing Alcohol: 2 to 4 times a month - Substance Use History Substance History: No History of Abuse - Travel History Recent Travel in the [place] Within the Last 8 Weeks: No Recent Travel Out of the Country Within the Last 8 Weeks: No - Immunization History Tetanus Immunization: <5 Years Medications and Allergies Active Medications: Active Medications Carvedilol (Coreg) 3.125 mg PO BID MONIQUE Ferrous Sulfate (Ferosul) 325 mg PO DAILY MONIQUE Pantoprazole Sodium 80 mg/ (Sodium Chloride) 100 mls @ 10 mls/hr IV.CONT CONT MONIQUE Last Admin: 08/01/18 18:55 Dose: 10 mls/hr Sodium Chloride (Ns Inj) 250 mls @ 15 mls/hr IV.SIG ONCE MOINQUE Stop: 08/02/18 10:39 Last Admin: 08/01/18 18:55 Dose: 15 mls/hr Sodium Chloride (Ns Flush) 2 ml IV.FLUSH PRN PRN PRN Reason: FLUSH AFTER USING IV ACCESS Allergies Allergy/AdvReac Type Severity Reaction Status Date / Time simvastatin Allergy Severe WEAKNESS Verified 08/01/18 17:14 Home Medications Medication Instructions Recorded Confirmed Type apixaban [Eliquis] 2.5 mg PO BID 08/01/18 08/01/18 History aspirin [Aspir-81] 81 mg PO DAILY 08/01/18 08/01/18 History carvedilol 3.125 mg PO BID 08/01/18 08/01/18 History ferrous sulfate [Iron (ferrous 325 mg PO DAILY 08/01/18 08/01/18 History sulfate)] isosorbide mononitrate 30 mg PO DAILY 08/01/18 08/01/18 History midodrine 10 mg PO WITH DIALYSIS 08/01/18 08/01/18 History pravastatin 10 mg PO DAILY 08/01/18 08/01/18 History sevelamer carbonate [Renvela] 800 mg PO TID 08/01/18 08/01/18 History tamsulosin 0.4 mg PO DAILY 08/01/18 08/01/18 History Exam Vital signs: Vital Signs 08/01/18 16:46 08/01/18 17:11 08/01/18 17:14 Temperature 97.3 F L Pulse Rate 81 81 Respiratory Rate 18 30 H Blood Pressure 100/46 L Pulse Oximetry 98 96 96 08/01/18 17:16 08/01/18 18:41 08/01/18 18:55 Temperature 97.7 F Pulse Rate 80 81 Respiratory Rate 19 19 Blood Pressure 114/56 L 111/59 L 107/55 L Pulse Oximetry 96 94 L 08/01/18 19:20 Temperature Pulse Rate 80 Respiratory Rate 20 Blood Pressure 107/52 L Pulse Oximetry 97 Intake & Output 08/01/18 08/01/18 08/02/18 06:59 18:59 06:59 Intake Total 0 / 0 Balance 0 / 0 Weight 81.647 kg Intake: Intake (Blood Product) Amt 0 / 0 Rbc As-3 Leukoreduced Unit 0 / 0 [id number] Narrative: Gen.: No acute distress Head: Normocephalic. Atraumatic. EENT: Pupils equal round and reactive to light. Nose without drainage. Airway intact. Throat without injection. Cardiovascular: Regular rate and rhythm. No murmurs, rubs or gallops. Respiratory: Lungs clear to auscultation bilaterally. No wheezes or rhonchi. Abdomen: Soft, nontender, nondistended. No peritoneal signs. Musculoskeletal: No gross deformities. No edema. AV fistula in place with palpable thrill. Skin: No obvious rashes or erythema. Neuro: Sensory and motor grossly intact. Cranial nerves II through XII grossly intact. Results - Labs CBC & Chem 7: 08/01/18 17:11 08/01/18 17:11 Labs: Laboratory Results - last 24 hr 08/01/18 08/01/18 08/01/18 17:11 17:11 17:11 WBC 7.7 RBC 2.04 L Hgb 6.8 L* Hct 21.1 L MCV 103.5 H MCH 33.5 MCHC 32.4 RDW 18.5 H Plt Count 161 MPV 8.0 Prelim Diff (Auto) Home Inspector Neut % (Auto) 79.2 H Lymph % (Auto) 9.4 [place] % (Auto) 7.5 Eos % (Auto) 3.0 Baso % (Auto) 0.9 Neut # (Auto) 6.1 Lymph # (Auto) 0.7 L [place] # (Auto) 0.6 Eos # (Auto) 0.2 Baso # (Auto) 0.1 WBC Differential . Differential Comment Auto diff final PT 12.0 H INR 1.2 APTT 26.1 Sodium 138 Potassium 3.3 L Chloride 101 Carbon Dioxide 27.1 Anion Gap 10 BUN 20 H Creatinine 3.92 H Estimated GFR 15 L Random Glucose 173 H Calcium 9.0 Total Bilirubin 0.6 AST 22 ALT 33 Alkaline Phosphatase 181 H Total Protein 6.6 Albumin 3.0 L Blood Type Antibody Screen MTS Gel Crossmatch 08/01/18 08/01/18 17:11 17:55 WBC RBC Hgb Hct MCV MCH MCHC RDW Plt Count MPV Prelim Diff (Auto) Neut % (Auto) Lymph % (Auto) [place] % (Auto) Eos % (Auto) Baso % (Auto) Neut # (Auto) Lymph # (Auto) [place] # (Auto) Eos # (Auto) Baso # (Auto) WBC Differential Differential Comment PT INR APTT Sodium Potassium Chloride Carbon Dioxide Anion Gap BUN Creatinine Estimated GFR Random Glucose Calcium Total Bilirubin AST ALT Alkaline Phosphatase Total Protein Albumin Blood Type A Negative Antibody Screen Negative MTS Gel Crossmatch See Detail - Imaging Impressions Chest X-Ray 08/01/18 17:04 CONCLUSION: Cardiomegaly. Right lower lung atelectasis/consolidation and likely right effusion. Caprini VTE Risk Assessment Caprini VTE Risk Assessment: Moderate/High Risk (score >= 2) Caprini Risk Assessment Model: Point Value = 1 Point Value = 2 Point Value = 3 Point Value = 5 Age 41-60 Minor surgery BMI > 25 kg/m2 Swollen legs Varicose veins or History of unexplained or recurrent spontaneous Oral contraceptives or hormone replacement Sepsis (< 1 month) Serious lung disease, including pneumonia (< 1 month) Abnormal pulmonary function Acute myocardial infarction Congestive heart failure (< 1 month) History of inflammatory bowel disease Medical patient at bed rest Age 61-74 Arthroscopic surgery Major open surgery (> 45 min) Laparoscopic surgery (> 45 min) Malignancy Confined to bed (> 72 hours) Immobilizing plaster cast Central venous access Age >= 75 History of VTE Family history of VTE Factor V Leiden Prothrombin [id number] Lupus anticoagulant Anticardiolipin antibodies Elevated serum homocysteine Heparin-induced thrombocytopenia Other congenital or acquired thrombophilia Stroke (< 1 month) Elective arthroplasty Hip, pelvis, or leg fracture Acute spinal cord injury (< 1 month) Prophylaxis Regimen: Total Risk Factor Score Risk Level Prophylaxis Regimen 0-1 Low Early ambulation 2 Moderate Order ONE of the following: *Sequential Compression Device (SCD) *Heparin 5000 units SQ BID 3-4 Higher Order ONE of the following medications: *Heparin 5000 units SQ TID *Enoxaparin/Lovenox 40 mg SQ daily (WT < 150 kg, CrCl > 30 mL/min) *Enoxaparin/Lovenox 30 mg SQ daily (WT < 150 kg, CrCl > 10-29 mL/min) *Enoxaparin/Lovenox 30 mg SQ BID (WT < 150 kg, CrCl > 30 mL/min) AND/OR *Sequential Compression Device (SCD) 5 or more Highest Order ONE of the following medications: *Heparin 5000 units SQ TID (Preferred with Epidurals) *Enoxaparin/Lovenox 40 mg SQ daily (WT < 150 kg, CrCl > 30 mL/min) *Enoxaparin/Lovenox 30 mg SQ daily (WT < 150 kg, CrCl > 10-29 mL/min) *Enoxaparin/Lovenox 30 mg SQ BID (WT < 150 kg, CrCl > 30 mL/min) AND *Sequential Compression Device (SCD) Assessment and Plan - Plan Assessment/plan: 1. Lower GI bleed Hemoccult positive in the n.p.o. Serial H&H Holding Eliquis Gastroenterology consulted, appreciate recommendations Protonix drip 2. Atrial fibrillation Holding Eliquis as above Continue beta-ignacia 3. Diabetes mellitus Sliding scale insulin Monitor blood glucose 4. Hypertension/hyperlipidemia/coronary artery disease Holding aspirin Continue all other home medications FEN N.p.o. Electrolytes: Status post p.o. repletion of potassium, monitor BMP Holding pharmacologic anticoagulation for GI bleed
[2018-08-01] MEDS: Insulin NovoLOG Aspart Correctional Sugar Inj SQ SCH (22:32)
[2018-08-02 00:35] LABS: Hematocrit 23.1 % (39.0-51.0)
[2018-08-02] MEDS: Insulin NovoLOG Aspart Correctional Sugar Inj SQ SCH ×5 (06:44→20:52)
[2018-08-02] MEDS ORDERED: Gelatin 12 MM/7 MM Topical Foam TOPICAL PRN (07:44)
[2018-08-02] MEDS ORDERED: Acetaminophen 325 MG Tablet PO PRN (07:44)
[2018-08-02] MEDS ORDERED: Albumin Human 25% Inj 100 ML IV.SIG PRN (07:44)
[2018-08-02] MEDS ORDERED: Heparin 10,000 UNITS/10 ML Vial (for IV use) OTHER PRN (07:44)
[2018-08-02] MEDS ORDERED: Sod Chloride 0.9% Inj 1,000 ML OTHER PRN ×2 (07:44)
[2018-08-02] MEDS ORDERED: Sod Chloride 0.9% Inj 1,000 ML IV.CONT PRN (07:44)
--- NOTE | 2018-08-02 08:17 | P.CONGI ---
History of Present Illness Consult date: 08/02/18 Consult reason: Anemia Chief complaint: GI Bleed, Symptomatic Anemia History of Present Illness: This is an 87-year-old male with past medical history significant for end-stage renal disease on hemodialysis Monday, Monday, Monday, hypertension, hyperlipidemia, atrial fibrillation on Eliquis for anticoagulation, diabetes mellitus and coronary artery disease. Patient was sent from the dialysis center yesterday for evaluation of severe anemia. Patient is a very poor historian. States that he does not usually check his stools when he does they range from brown to black. Of note, patient is on iron supplementation. Denies any nausea, vomiting, abdominal pain. Patient has been previously admitted to [facility] in 2009 for severe anemia secondary to acute GI bleed. EGD at that time revealed multiple gastric erosions and one smaller discrete antral ulceration as well. Biopsy of the stomach revealed reactive gastropathy and prominent foveolar gland hyperplasia with scattered chronic inflammation, stain negative for H. pylori. Patient thinks that he had a colonoscopy done 3-4 years ago, believes this was at [facility] although I do not see it in the records. He states that the exam was normal and he was told he would not need a repeat exam. Denies taking any NSAIDs. Denies EtOH. <Gertrudis Hicks - Last Filed: 08/02/18 08:17> Review of Systems Gastrointestinal: Denies abdominal pain, Denies change in stools, Denies loose stools, Denies nausea, Denies vomiting <Gertrudis Hicks - Last Filed: 08/02/18 08:17> [facility] - History History Provided By: Patient, Family Member - Medical History Medical History: Medical History (Last Updated 08/01/18 @ 20:20 by Hannah Mercedes MD) A-fib AV fistula BPH (benign prostatic hyperplasia) Dialysis patient ESRD (end stage renal disease) Hyperchloremia Hypertension - Surgical History Surgical History: Surgical History (Last Updated 08/01/18 @ 20:20 by Hannah Mercedes MD) Aortic valve replaced History of tonsillectomy Mitral valve replaced - Family History Family History: Family History (Last Updated 08/01/18 @ 20:20 by Hannah Mercedes MD) Other Family history normal - Tobacco History Second Hand Smoke Exposure: No Tobacco Use In Past 30 Days: No Smoking Status: Former smoker Tobacco Type: Cigarettes - Alcohol History How Often Do You Have a Drink Containing Alcohol: 2 to 4 times a month - Substance Use History Substance History: No History of Abuse - Travel History Recent Travel in the [place] Within the Last 8 Weeks: No Recent Travel Out of the Country Within the Last 8 Weeks: No - Immunization History Tetanus Immunization: <5 Years <Gertrudis Hicks - Last Filed: 08/02/18 08:17> - Medical History Medical History: Medical History (Last Updated 08/01/18 @ 20:20 by Hannah Mercedes MD) A-fib AV fistula BPH (benign prostatic hyperplasia) Dialysis patient ESRD (end stage renal disease) Hyperchloremia Hypertension - Surgical History Surgical History: Surgical History (Last Updated 08/01/18 @ 20:20 by Hannah Mercedes MD) Aortic valve replaced History of tonsillectomy Mitral valve replaced - Family History Family History: Family History (Last Updated 08/01/18 @ 20:20 by Hannah Mercedes MD) Other Family history normal <Katlin Andres - Last Filed: 08/02/18 16:34> Medications and Allergies Active Medications: Active Medications Acetaminophen (Tylenol) 650 mg PO UNSCH PRN PRN Reason: SEE LABEL COMMENTS Carvedilol (Coreg) 3.125 mg PO BID [facility] Last Admin: 08/01/18 20:51 Dose: 3.125 mg Clonidine HCl (Catapres) 0.1 mg PO UNSCH PRN PRN Reason: SEE LABEL COMMENTS Dextrose (D50w Vial) 50 ml IV.PUSH UNSCH PRN PRN Reason: PER HYPOGLYCEMIA PROTOCOL Diphenhydramine HCl (Benadryl) 25 mg PO UNSCH PRN PRN Reason: SEE LABEL COMMENTS Epoetin Taiwo (Epogen Inj) 10,000 unit IV.PUSH UNSCH PRN PRN Reason: SEE LABEL COMMENTS Ferrous Sulfate (Ferosul) 325 mg PO DAILY [facility] Gelatin (Gelfoam 12 Mm/7 Mm Topical) 1 foam TOPICAL PRN PRN PRN Reason: help stop bleeding from site Glucagon (Glucagon Inj) 1 mg OTHER PRN PRN PRN Reason: for Hypoglycemia Protocol Heparin Sodium (Porcine) (Heparin Inj) 8,000 units OTHER WITH DIALYSIS PRN PRN Reason: for machine prime Pantoprazole Sodium 80 mg/ (Sodium Chloride) 100 mls @ 10 mls/hr IV.CONT CONT MONIQUE Last Infusion: 08/02/18 05:00 Dose: Infused Sodium Chloride (Ns Inj) 250 mls @ 15 mls/hr IV.SIG ONCE MONIQUE Stop: 08/02/18 10:39 Last Admin: 08/01/18 18:55 Dose: 15 mls/hr Albumin Human (Flexbumin 25% Inj) 100 mls @ 60 mls/hr IV.SIG WITH DIALYSIS PRN PRN Reason: hypotension / volume replace Sodium Chloride (Ns Inj) 1,000 mls @ 0 mls/hr OTHER .Q0M PRN PRN Reason: for prime and rinse back Sodium Chloride (Ns Inj) 1,000 mls @ 200 mls/hr OTHER .Q5H PRN PRN Reason: for dialyzer flush PRN Sodium Chloride (Ns Inj) 1,000 mls @ 0 mls/hr IV.CONT .Q0M PRN PRN Reason: hypotension / volume replace Insulin Aspart (Novolog Insulin Correctional Sugar Inj) 0 unit SQ ACHS AND 3AM MONIQUE; Protocol Last Admin: 08/02/18 06:44 Dose: Not Given Isosorbide Mononitrate (Imdur) 30 mg PO DAILY [facility] Mannitol (Mannitol Inj) 12.5 gm IV.PUSH UNSCH PRN PRN Reason: hypotension / volume replace Nitroglycerin (Nitrostat Sl) 0.4 mg SL Q5M PRN PRN Reason: CHEST PAIN Ondansetron HCl (Zofran Inj) 4 mg IV.PUSH Q6H PRN PRN Reason: NAUSEA Ondansetron HCl (Zofran Inj) 4 mg IV.PUSH UNSCH PRN PRN Reason: NAUSEA OR VOMITING Pravastatin Sodium (Pravachol) 10 mg PO DAILY [facility] Sevelamer Carbonate (Renvela) 800 mg PO TID [facility] Sodium Chloride (Ns Flush) 2 ml IV.FLUSH PRN PRN PRN Reason: FLUSH AFTER USING IV ACCESS Sodium Chloride (Ns Flush) 2 ml IV.FLUSH BID [facility] Last Admin: 08/01/18 22:28 Dose: Not Given Sodium Chloride (Ns Flush) 2 ml IV.FLUSH PRN PRN PRN Reason: FLUSH AFTER USING IV ACCESS Sodium Chloride (Ns Flush) 5 ml IV.FLUSH PRN PRN PRN Reason: flush each lumen during HD Tamsulosin HCl (Flomax) 0.4 mg PO DAILY [facility] <Gertrudis Hicks - Last Filed: 08/02/18 08:17> Active Medications: Active Medications Acetaminophen (Tylenol) 650 mg PO UNSCH PRN PRN Reason: SEE LABEL COMMENTS Carvedilol (Coreg) 3.125 mg PO BID [facility] Last Admin: 08/02/18 10:46 Dose: 3.125 mg Clonidine HCl (Catapres) 0.1 mg PO UNSCH PRN PRN Reason: SEE LABEL COMMENTS Dextrose (D50w Vial) 50 ml IV.PUSH UNSCH PRN PRN Reason: PER HYPOGLYCEMIA PROTOCOL Diphenhydramine HCl (Benadryl) 25 mg PO UNSCH PRN PRN Reason: SEE LABEL COMMENTS Epoetin Taiwo (Epogen Inj) 10,000 unit IV.PUSH UNSCH PRN PRN Reason: SEE LABEL COMMENTS Ferrous Sulfate (Ferosul) 325 mg PO DAILY [facility] Gelatin (Gelfoam 12 Mm/7 Mm Topical) 1 foam TOPICAL PRN PRN PRN Reason: help stop bleeding from site Glucagon (Glucagon Inj) 1 mg OTHER PRN PRN PRN Reason: for Hypoglycemia Protocol Heparin Sodium (Porcine) (Heparin Inj) 8,000 units OTHER WITH DIALYSIS PRN PRN Reason: for machine prime Pantoprazole Sodium 80 mg/ (Sodium Chloride) 100 mls @ 10 mls/hr IV.CONT CONT [facility] Last Infusion: 08/02/18 05:00 Dose: Infused Albumin Human (Flexbumin 25% Inj) 100 mls @ 60 mls/hr IV.SIG WITH DIALYSIS PRN PRN Reason: hypotension / volume replace Sodium Chloride (Ns Inj) 1,000 mls @ 0 mls/hr OTHER .Q0M PRN PRN Reason: for prime and rinse back Sodium Chloride (Ns Inj) 1,000 mls @ 200 mls/hr OTHER .Q5H PRN PRN Reason: for dialyzer flush PRN Sodium Chloride (Ns Inj) 1,000 mls @ 0 mls/hr IV.CONT .Q0M PRN PRN Reason: hypotension / volume replace Lactated Ringer's (Lr 1000 Ml Inj) 1,000 mls @ 30 mls/hr IV.CONT .Q24H ONE Stop: 08/03/18 09:29 Sodium Chloride (Ns Inj) 500 mls @ 30 mls/hr IV.CONT .[id number] ONE Stop: 08/03/18 02:09 Insulin Aspart (Novolog Insulin Correctional Sugar Inj) 0 unit SQ ACHS AND 3AM MONIQUE; Protocol Last Admin: 08/02/18 11:41 Dose: Not Given Isosorbide Mononitrate (Imdur) 30 mg PO DAILY [facility] Last Admin: 08/02/18 10:46 Dose: 30 mg Mannitol (Mannitol Inj) 12.5 gm IV.PUSH UNSCH PRN PRN Reason: hypotension / volume replace Nitroglycerin (Nitrostat Sl) 0.4 mg SL Q5M PRN PRN Reason: CHEST PAIN Ondansetron HCl (Zofran Inj) 4 mg IV.PUSH Q6H PRN PRN Reason: NAUSEA Ondansetron HCl (Zofran Inj) 4 mg IV.PUSH UNSCH PRN PRN Reason: NAUSEA OR VOMITING Polyethylene Glycol/Electrolytes (Colyte Liq) 4,000 ml PO ONCE ONE Stop: 08/02/18 17:01 Pravastatin Sodium (Pravachol) 10 mg PO DAILY [facility] Sevelamer Carbonate (Renvela) 800 mg PO TID [facility] Last Admin: 08/02/18 10:48 Dose: Not Given Sodium Chloride (Ns Flush) 2 ml IV.FLUSH PRN PRN PRN Reason: FLUSH AFTER USING IV ACCESS Sodium Chloride (Ns Flush) 2 ml IV.FLUSH BID [facility] Last Admin: 08/02/18 10:48 Dose: Not Given Sodium Chloride (Ns Flush) 2 ml IV.FLUSH PRN PRN PRN Reason: FLUSH AFTER USING IV ACCESS Sodium Chloride (Ns Flush) 5 ml IV.FLUSH PRN PRN PRN Reason: flush each lumen during HD Tamsulosin HCl (Flomax) 0.4 mg PO DAILY [facility] <Katlin Andres - Last Filed: 08/02/18 16:34> Allergies Allergy/AdvReac Type Severity Reaction Status Date / Time simvastatin Allergy Severe WEAKNESS Verified 08/01/18 17:14 Home Medications Medication Instructions Recorded Confirmed Type apixaban [Eliquis] 2.5 mg PO BID 08/01/18 08/01/18 History aspirin [Aspir-81] 81 mg PO DAILY 08/01/18 08/01/18 History carvedilol 3.125 mg PO BID 08/01/18 08/01/18 History ferrous sulfate [Iron (ferrous 325 mg PO DAILY 08/01/18 08/01/18 History sulfate)] isosorbide mononitrate 30 mg PO DAILY 08/01/18 08/01/18 History midodrine 10 mg PO WITH DIALYSIS 08/01/18 08/01/18 History pravastatin 10 mg PO DAILY 08/01/18 08/01/18 History sevelamer carbonate [Renvela] 800 mg PO TID 08/01/18 08/01/18 History tamsulosin 0.4 mg PO DAILY 08/01/18 08/01/18 History Exam Vital signs: Vital Signs 08/01/18 16:46 08/01/18 17:11 08/01/18 17:14 Temperature 97.3 F L Pulse Rate 81 81 Respiratory Rate 18 30 H Blood Pressure 100/46 L Pulse Oximetry 98 96 96 08/01/18 17:16 08/01/18 18:41 08/01/18 18:55 Temperature 97.7 F Pulse Rate 80 81 Respiratory Rate 19 19 Blood Pressure 114/56 L 111/59 L 107/55 L Pulse Oximetry 96 94 L 08/01/18 19:20 08/01/18 22:33 08/01/18 23:00 Temperature 97.7 F Pulse Rate 80 81 81 Respiratory Rate 20 18 20 Blood Pressure 107/52 L 111/53 L 108/59 L Pulse Oximetry 97 98 98 08/02/18 00:42 08/02/18 01:00 08/02/18 01:56 Temperature 98.3 F 98.3 F Pulse Rate 82 82 90 Respiratory Rate 18 18 Blood Pressure 100/54 L 100/54 L Pulse Oximetry 94 L 08/02/18 02:15 08/02/18 03:30 Temperature 97.8 F Pulse Rate 82 82 Respiratory Rate 20 20 Blood Pressure 102/57 L 111/55 L Pulse Oximetry 96 Intake & Output 08/01/18 08/02/18 08/02/18 18:59 06:59 18:59 Intake Total 0 / 0 560 / 560 Balance 0 / 0 560 / 560 Weight 81.647 kg Intake: IV 100 / 100 Protonix Inj 80 MG In NS Inj 100 / 100 100 ML @ 10 mls/hr IV.CONT CONT [facility]IQUE Rx#:[id number] Oral 60 / 60 Intake (Blood Product) Amt 0 / 0 400 / 400 Rbc As-3 Leukoreduced Unit 0 / 0 [id number] Rbc As-3 Leukoreduced Unit 0 / 0 400 / 400 [id number] Other: # Voids 1 # Bowel Movements 1 - Constitutional no acute distress - Routine HEENT Exam Head: Present: normocephalic, atraumatic - Routine Respiratory Exam Absent: accessory muscle use - Routine Abdominal Exam Present: soft, normoactive bowel sounds. Absent: tenderness, distended - Routine Skin Exam Present: dry, warm - Routine Neurological Exam Present: alert, oriented X3 <Gertrudis Hicks - Last Filed: 08/02/18 08:17> Vital signs: Vital Signs 08/01/18 16:46 08/01/18 17:11 08/01/18 17:14 Temperature 97.3 F L Pulse Rate 81 81 Respiratory Rate 18 30 H Blood Pressure 100/46 L Pulse Oximetry 98 96 96 08/01/18 17:16 08/01/18 18:41 08/01/18 18:55 Temperature 97.7 F Pulse Rate 80 81 Respiratory Rate 19 19 Blood Pressure 114/56 L 111/59 L 107/55 L Pulse Oximetry 96 94 L 08/01/18 19:20 08/01/18 22:33 08/01/18 23:00 Temperature 97.7 F Pulse Rate 80 81 81 Respiratory Rate 20 18 20 Blood Pressure 107/52 L 111/53 L 108/59 L Pulse Oximetry 97 98 98 08/02/18 00:42 08/02/18 01:00 08/02/18 01:56 Temperature 98.3 F 98.3 F Pulse Rate 82 82 90 Respiratory Rate 18 18 Blood Pressure 100/54 L 100/54 L Pulse Oximetry 94 L 08/02/18 02:15 08/02/18 03:30 08/02/18 08:00 Temperature 97.8 F 97.4 F L Pulse Rate 82 82 80 Respiratory Rate 20 20 22 Blood Pressure 102/57 L 111/55 L 120/57 L Pulse Oximetry 96 97 08/02/18 11:08 08/02/18 16:02 Temperature 97.5 F L Pulse Rate 83 Respiratory Rate 16 Blood Pressure 108/53 L Pulse Oximetry 95 96 Intake & Output 08/01/18 08/02/1808/02/18 18:59 06:59 18:59 Intake Total 0 / 0 560 / 560 150 / 150 Balance 0 / 0 560 / 560 150 / 150 Weight 81.647 kg Intake: IV 100 / 100 Protonix Inj 80 MG In NS Inj 100 / 100 100 ML @ 10 mls/hr IV.CONT CONT MONIQUE Rx#:[id number] Oral 60 / 60 Anesthesia Amount 150 / 150 Intake (Blood Product) Amt 0 / 0 400 / 400 Rbc As-3 Leukoreduced Unit 0 / 0 [id number] Rbc As-3 Leukoreduced Unit 0 / 0 400 / 400 [id number] Other: # Voids 1 # Bowel Movements 1 <Katlin Andres - Last Filed: 08/02/18 16:34> Results - Labs CBC & Chem 7: 08/02/18 00:06 08/01/18 17:11 Labs: Laboratory Results - last 24 hr 08/01/18 08/01/18 08/01/18 17:11 17:11 17:11 WBC 7.7 RBC 2.04 L Hgb 6.8 L* Hct 21.1 L MCV 103.5 H MCH 33.5 MCHC 32.4 RDW 18.5 H Plt Count 161 MPV 8.0 Prelim Diff (Auto) Recreation Clerk Neut % (Auto) 79.2 H Lymph % (Auto) 9.4 [place] % (Auto) 7.5 Eos % (Auto) 3.0 Baso % (Auto) 0.9 Neut # (Auto) 6.1 Lymph # (Auto) 0.7 L [place] # (Auto) 0.6 Eos # (Auto) 0.2 Baso # (Auto) 0.1 WBC Differential . Differential Comment Auto diff final PT 12.0 H INR 1.2 APTT 26.1 Sodium 138 Potassium 3.3 L Chloride 101 Carbon Dioxide 27.1 Anion Gap 10 BUN 20 H Creatinine 3.92 H Estimated GFR 15 L POC Glucose Random Glucose 173 H Calcium 9.0 Total Bilirubin 0.6 AST 22 ALT 33 Alkaline Phosphatase 181 H Total Protein 6.6 Albumin 3.0 L Blood Type Antibody Screen MTS Gel Crossmatch 08/01/18 08/01/18 08/02/18 17:11 17:55 00:06 WBC RBC Hgb 8.0 L Hct 23.1 L MCV MCH MCHC RDW Plt Count MPV Prelim Diff (Auto) Neut % (Auto) Lymph % (Auto) [place] % (Auto) Eos % (Auto) Baso % (Auto) Neut # (Auto) Lymph # (Auto) [place] # (Auto) Eos # (Auto) Baso # (Auto) WBC Differential Differential Comment PT INR APTT Sodium Potassium Chloride Carbon Dioxide Anion Gap BUN Creatinine Estimated GFR POC Glucose Random Glucose Calcium Total Bilirubin AST ALT Alkaline Phosphatase Total Protein Albumin Blood Type A Negative Antibody Screen Negative MTS Gel Crossmatch See Detail 08/02/18 08/02/18 03:33 07:55 WBC RBC Hgb Hct MCV MCH MCHC RDW Plt Count MPV Prelim Diff (Auto) Neut % (Auto) Lymph % (Auto) [place] % (Auto) Eos % (Auto) Baso % (Auto) Neut # (Auto) Lymph # (Auto) [place] # (Auto) Eos # (Auto) Baso # (Auto) WBC Differential Differential Comment PT INR APTT Sodium Potassium Chloride Carbon Dioxide Anion Gap BUN Creatinine Estimated GFR POC Glucose 132 H 100 Random Glucose Calcium Total Bilirubin AST ALT Alkaline Phosphatase Total Protein Albumin Blood Type Antibody Screen MTS Gel Crossmatch - Imaging Impressions Chest X-Ray 08/01/18 17:04 CONCLUSION: Cardiomegaly. Right lower lung atelectasis/consolidation and likely right effusion. <Gertrudis Hicks - Last Filed: 08/02/18 08:17> - Labs CBC & Chem 7: 08/02/18 06:57 08/02/18 06:57 Labs: Laboratory Results - last 24 hr 08/01/18 08/01/18 08/01/18 17:11 17:11 17:11 WBC 7.7 RBC 2.04 L Hgb 6.8 L* Hct 21.1 L MCV 103.5 H MCH 33.5 MCHC 32.4 RDW 18.5 H Plt Count 161 MPV 8.0 Prelim Diff (Auto) Recreation Clerk Neut % (Auto) 79.2 H Lymph % (Auto) 9.4 [place] % (Auto) 7.5 Eos % (Auto) 3.0 Baso % (Auto) 0.9 Neut # (Auto) 6.1 Lymph # (Auto) 0.7 L [place] # (Auto) 0.6 Eos # (Auto) 0.2 Baso # (Auto) 0.1 WBC Differential . Differential Comment Auto diff final PT 12.0 H INR 1.2 APTT 26.1 Sodium 138 Potassium 3.3 L Chloride 101 Carbon Dioxide 27.1 Anion Gap 10 BUN 20 H Creatinine 3.92 H Estimated GFR 15 L POC Glucose Random Glucose 173 H Calcium 9.0 Total Bilirubin 0.6 AST 22 ALT 33 Alkaline Phosphatase 181 H Total Protein 6.6 Albumin 3.0 L Blood Type Antibody Screen MTS Gel Crossmatch 08/01/18 08/01/18 08/02/18 17:11 17:55 00:06 WBC RBC Hgb 8.0 L Hct 23.1 L MCV MCH MCHC RDW Plt Count MPV Prelim Diff (Auto) Neut % (Auto) Lymph % (Auto) [place] % (Auto) Eos % (Auto) Baso % (Auto) Neut # (Auto) Lymph # (Auto) [place] # (Auto) Eos # (Auto) Baso # (Auto) WBC Differential Differential Comment PT INR APTT Sodium Potassium Chloride Carbon Dioxide Anion Gap BUN Creatinine Estimated GFR POC Glucose Random Glucose Calcium Total Bilirubin AST ALT Alkaline Phosphatase Total Protein Albumin Blood Type A Negative Antibody Screen Negative MTS Gel Crossmatch See Detail 08/02/18 08/02/18 08/02/18 03:33 06:57 06:57 WBC 6.7 RBC 2.69 L Hgb 8.9 L Hct 25.6 L MCV 95.3 D MCH 33.0 MCHC 34.7 RDW 19.5 H Plt Count 127 L MPV 7.8 Prelim Diff (Auto) Neut % (Auto) 75.0 H Lymph % (Auto) 11.6 [place] % (Auto) 8.5 H Eos % (Auto) 3.6 Baso % (Auto) 1.3 Neut # (Auto) 5.0 Lymph # (Auto) 0.8 L [place] # (Auto) 0.6 Eos # (Auto) 0.2 Baso # (Auto) 0.1 WBC Differential . Differential Comment Auto diff final PT INR APTT Sodium 138 Potassium 4.3 D Chloride 104 Carbon Dioxide 24.9 Anion Gap 9 BUN 26 H Creatinine 4.78 H Estimated GFR 12 L POC Glucose 132 H Random Glucose 101 Calcium 8.8 Total Bilirubin AST ALT Alkaline Phosphatase Total Protein Albumin Blood Type Antibody Screen MTS Gel Crossmatch 08/02/18 08/02/18 08/02/18 07:55 11:27 16:25 WBC RBC Hgb Hct MCV MCH MCHC RDW Plt Count MPV Prelim Diff (Auto) Neut % (Auto) Lymph % (Auto) [place] % (Auto) Eos % (Auto) Baso % (Auto) Neut # (Auto) Lymph # (Auto) [place] # (Auto) Eos # (Auto) Baso # (Auto) WBC Differential Differential Comment PT INR APTT Sodium Potassium Chloride Carbon Dioxide Anion Gap BUN Creatinine Estimated GFR POC Glucose 100 110 112 H Random Glucose Calcium Total Bilirubin AST ALT Alkaline Phosphatase Total Protein Albumin Blood Type Antibody Screen MTS Gel Crossmatch - Imaging Impressions Chest X-Ray 08/01/18 17:04 CONCLUSION: Cardiomegaly. Right lower lung atelectasis/consolidation and likely right effusion. <Katlin Andres - Last Filed: 08/02/18 16:34> Assessment and Plan - Plan Assessment Anemia with guaiac positive stoolpatient was sent from dialysis center yesterday for evaluation of acute anemia. Patient is poor historian. States he does not regularly check his stools, when he does they range from brown to black. Of note, patient is on iron supplementation. Denies any nausea, vomiting, abdominal pain, diarrhea. Patient is on Eliquis for anticoagulation, last dosage was yesterday morning prior to dialysis. Patient has been previously admitted to [facility] in 2009 for severe anemia secondary to acute GI bleed. EGD at that time revealed multiple gastric erosions and one smaller discrete antral ulceration as well. Biopsy of the stomach revealed reactive gastropathy and prominent foveolar gland hyperplasia with scattered chronic inflammation, stain negative for H. pylori. Patient thinks that he had a colonoscopy done 3-4 years ago, believes this was at [facility] although I do not see it in the records. He states that the exam was normal and he was told he would not need a repeat exam. Denies taking any NSAIDs. Denies EtOH. Plan EGD today Obtain consent Keep n.p.o. Hold Eliquis If EGD negative, consider colonoscopy tomorrow Monitor H/H Protonix drip Further recommendations to follow Discussed with pt Discussed with pts on the phone Discussed with RN at bedside This patient has been seen and examined by myself and Dr. Andres this note is written on his behalf <Gertrudis Hicks - Last Filed: 08/02/18 08:17> - Plan Seen and examined with EQUIPMENT ANALYST, egd today if -ve colonoscopy tomorrow. Discussed with pt. Monitor labs. Thank you The exam, history, and the medical decision-making described in the above note were completed with the assistance of the mid-level provider. I reviewed and agree with the findings presented. I attest that I had a [id number] encounter with the patient on the same day, and personally performed and documented my assessment and findings in the medical record. <Katlin Andres - Last Filed: 08/02/18 16:34>
[2018-08-02 08:30] LABS: Baso # (Auto) 0.1 th/mm3 (0.0-0.2); Baso % (Auto) 1.3 % (0.0-2.0); Eos # (Auto) 0.2 th/mm3 (0.0-0.4); Eos % (Auto) 3.6 % (0.0-4.0); Hematocrit 25.6 % (39.0-51.0); Hemoglobin 8.9 gm/dL (13.0-17.0); Lymph # (Auto) 0.8 th/mm3 (1.0-4.8); Lymph % (Auto) 11.6 % (9.0-44.0); Mean Corpuscular HGB Conc 34.7 % (32.0-36.0); Mean Corpuscular Volume 95.3 fL (80.0-100.0); Mean Platelet Volume 7.8 fL (7.0-11.0); Mono # (Auto) 0.6 th/mm3 (0.0-0.9); Mono % (Auto) 8.5 % (0.0-8.0); Platelet Count 127 th/mm3 (150-450); Red Blood Count 2.69 mil/mm3 (4.50-5.90); Red Cell Distribution Width 19.5 % (11.6-17.2); White Blood Count 6.7 th/mm3 (4.0-11.0)
[2018-08-02] MEDS ORDERED: Isosorbide Mononitrate 30 MG ER 24HR Tablet (Imdur) PO SCH (09:00)
[2018-08-02] MEDS ORDERED: Ferrous Sulfate 325 MG Tablet PO SCH (09:00)
[2018-08-02 09:10] LABS: Calcium 8.8 mg/dL (8.5-10.1); Carbon Dioxide 24.9 meq/L (21.0-32.0); Potassium 4.3 meq/L (3.5-5.1)
[2018-08-02] MEDS ORDERED: Chlorhexidine Gluconate 2% 1 Pack (2 Cloths) TOPICAL ONE (09:30)
[2018-08-02] MEDS ORDERED: Sodium Chlor 0.9% Inj 500 ML IV.CONT ONE (09:30)
[2018-08-02] MEDS ORDERED: Metoprolol Tartrate 25 MG Tablet PO ONE (09:30)
--- NOTE | 2018-08-02 11:35 | P.PN ---
Subjective Interval history: Follow-up visit end-stage renal disease on hemodialysis, HTN, age severe anemia , DM. Patient seen and examined today. Reports he felt a lot better. States that it has been 2 months he thought he was just lazy and dragging himself not feeling good. States he recently started on Eliquis, previously on Coumadin and other Noac. States she had a BM today, brown, nonbloody, non-tarry, none black. Denies pain and discomfort. Denies SOB/ dyspnea. Denies chest pain, palpitations, headaches, dizziness. Denies fevers, chills, n/v/d. Denies dysuria. Physical Exam Vital signs: Vital Signs 08/01/18 16:46 08/01/18 17:11 08/01/18 17:14 Temperature 97.3 F L Pulse Rate 81 81 Respiratory Rate 18 30 H Blood Pressure 100/46 L Pulse Oximetry 98 96 96 08/01/18 17:16 08/01/18 18:41 08/01/18 18:55 Temperature 97.7 F Pulse Rate 80 81 Respiratory Rate 19 19 Blood Pressure 114/56 L 111/59 L 107/55 L Pulse Oximetry 96 94 L 08/01/18 19:20 08/01/18 22:33 08/01/18 23:00 Temperature 97.7 F Pulse Rate 80 81 81 Respiratory Rate 20 18 20 Blood Pressure 107/52 L 111/53 L 108/59 L Pulse Oximetry 97 98 98 08/02/18 00:42 08/02/18 01:00 08/02/18 01:56 Temperature 98.3 F 98.3 F Pulse Rate 82 82 90 Respiratory Rate 18 18 Blood Pressure 100/54 L 100/54 L Pulse Oximetry 94 L 08/02/18 02:15 08/02/18 03:30 08/02/18 08:00 Temperature 97.8 F 97.4 F L Pulse Rate 82 82 80 Respiratory Rate 20 20 22 Blood Pressure 102/57 L 111/55 L 120/57 L Pulse Oximetry 96 97 08/02/18 11:08 Temperature Pulse Rate Respiratory Rate Blood Pressure Pulse Oximetry 95 Intake & Output 08/01/18 08/02/18 08/02/18 18:59 06:59 18:59 Intake Total 0 / 0 560 / 560 Balance 0 / 0 560 / 560 Weight 81.647 kg Intake: IV 100 / 100 Protonix Inj 80 MG In NS Inj 100 / 100 100 ML @ 10 mls/hr IV.CONT CONT [facility] Rx#:[id number] Oral 60 / 60 Intake (Blood Product) Amt 0 / 0 400 / 400 Rbc As-3 Leukoreduced Unit 0 / 0 [id number] Rbc As-3 Leukoreduced Unit 0 / 0 400 / 400 [id number] Other: # Voids 1 # Bowel Movements 1 Narrative: Gen.: No acute distress Head: Normocephalic. Atraumatic. EENT: Pupils equal round and reactive to light. Nose without drainage. Airway intact. Throat without injection. Cardiovascular: Irregular rate and rhythm. No murmurs, rubs or gallops. Respiratory: Lungs clear to auscultation bilaterally. No wheezes or rhonchi. Abdomen: Soft, nontender, nondistended. No peritoneal signs. Musculoskeletal: No gross deformities. No edema. AV fistula in place with palpable thrill. Skin: No obvious rashes or erythema. Neuro: Sensory and motor grossly intact. Cranial nerves II through XII grossly intact. 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 Differential Comment Auto diff final PT 12.0 H INR 1.2 APTT 26.1 Sodium 138 Potassium 3.3 L Chloride 101 Carbon Dioxide 27.1 Anion Gap 10 BUN 20 H Creatinine 3.92 H Estimated GFR 15 L POC Glucose Random Glucose 173 H Calcium 9.0 Total Bilirubin 0.6 AST 22 ALT 33 Alkaline Phosphatase 181 H Total Protein 6.6 Albumin 3.0 L Blood Type Antibody Screen MTS Gel Crossmatch 08/01/18 08/01/18 08/02/18 17:11 17:55 00:06 WBC RBC Hgb 8.0 L Hct 23.1 L MCV MCH MCHC RDW Plt Count MPV Prelim Diff (Auto) Neut % (Auto) Lymph % (Auto) Mcdonough % (Auto) Eos % (Auto) Baso % (Auto) Neut # (Auto) Lymph # (Auto) Mcdonough # (Auto) Eos # (Auto) Baso # (Auto) WBC Differential Differential Comment PT INR APTT Sodium Potassium Chloride Carbon Dioxide Anion Gap BUN Creatinine Estimated GFR POC Glucose Random Glucose Calcium Total Bilirubin AST ALT Alkaline Phosphatase Total Protein Albumin Blood Type A Negative Antibody Screen Negative MTS Gel Crossmatch See Detail 08/02/18 08/02/18 08/02/18 03:33 06:57 06:57 WBC 6.7 RBC 2.69 L Hgb 8.9 L Hct 25.6 L MCV 95.3 D MCH 33.0 MCHC 34.7 RDW 19.5 H Plt Count 127 L MPV 7.8 Prelim Diff (Auto) Neut % (Auto) 75.0 H Lymph % (Auto) 11.6 Mcdonough % (Auto) 8.5 H Eos % (Auto) 3.6 Baso % (Auto) 1.3 Neut # (Auto) 5.0 Lymph # (Auto) 0.8 L Mcdonough # (Auto) 0.6 Eos # (Auto) 0.2 Baso # (Auto) 0.1 WBC Differential . Differential Comment Auto diff final PT INR APTT Sodium 138 Potassium 4.3 D Chloride 104 Carbon Dioxide 24.9 Anion Gap 9 BUN 26 H Creatinine 4.78 H Estimated GFR 12 L POC Glucose 132 H Random Glucose 101 Calcium 8.8 Total Bilirubin AST ALT Alkaline Phosphatase Total Protein Albumin Blood Type Antibody Screen MTS Gel Crossmatch 08/02/18 07:55 WBC RBC Hgb Hct MCV MCH MCHC RDW Plt Count MPV Prelim Diff (Auto) Neut % (Auto) Lymph % (Auto) Mcdonough % (Auto) Eos % (Auto) Baso % (Auto) Neut # (Auto) Lymph # (Auto) Mcdonough # (Auto) Eos # (Auto) Baso # (Auto) WBC Differential Differential Comment PT INR APTT Sodium Potassium Chloride Carbon Dioxide Anion Gap BUN Creatinine Estimated GFR POC Glucose 100 Random Glucose Calcium Total Bilirubin AST ALT Alkaline Phosphatase Total Protein Albumin Blood Type Antibody Screen MTS Gel Crossmatch - Imaging Impressions Chest X-Ray 08/01/18 17:04 CONCLUSION: Cardiomegaly. Right lower lung atelectasis/consolidation and likely right effusion. Assessment and Plan - Plan 87-year-old male with a past medical history significant for end-stage renal disease on dialysis Monday, hypertension, hyperlipidemia, atrial fibrillation anticoagulated on Eliquis, diabetes mellitus and coronary artery disease presents to the emergency department for the evaluation of a low hemoglobin Anemia, acute Lower GI bleed -Hemoccult positive in the n.p.o. -Serial H&H -Holding Eliquis -Gastroenterology consulted, appreciate recommendations, for EGD today -Protonix drip -Denies hematochezia, hematemesis, hematuria Atrial fibrillation -Holding Eliquis as above -Continue beta-ignacia Diabetes mellitus -Sliding scale insulin -Monitor blood glucose Hypertension/hyperlipidemia/coronary artery disease -Holding aspirin -Continue all other home medications DVT prop no chemoprophylaxis for now, SCDs Code Status: Full Code Discussed Condition With: Patient, nursing Discharge Planning: Plan to DC home with home health care when clinically improved.
[2018-08-02] MEDS ORDERED: Lidocaine PF 1% Inj 5 ML Syringe OTHER ONE (15:30)
--- NOTE | 2018-08-02 15:45 | GIPROC ---
[facility] [address] [facility]. [facility], [address] EGD PROCEDURE REPORT EXAM DATE: 08/02/2018 PATIENT NAME: Ananth Guillen MR #: [id number] BIRTHDATE: 1930 ATTENDING: Katlin Andres MD ORDER #: [id number] GLOVE STITCHER: Amberly Basilio and Tiffanie Redman STATUS: inpatient INDICATIONS: The patient is a 87 yr old male here for an EGD due to acute post hemorrhagic anemia and melena PROCEDURE PERFORMED: EGD, diagnostic MEDICATIONS: Per Anesthesia and None. TOPICAL ANESTHETIC: CONSENT: The patient understands the risks and benefits of the procedure and understands that these risks include, but are not limited to: sedation, allergic reaction, infection, perforation and/or bleeding. Alternative means of evaluation and treatment include, among others: physical exam, x-rays, and/or surgical intervention. The patient elects to proceed with this endoscopic procedure. medical equipment was checked for proper function. Hand hygiene and appropriate measures for infection prevention was taken. After the risks, benefits and alternatives of the procedure were thoroughly explained, Informed consent was verified, confirmed and timeout was successfully executed by the treatment team. The patient was anesthetized with topical anesthesia and the Pentax [id number] endoscope was introduced through the mouth and advanced to the second portion of the duodenum. Retroflexed views revealed no abnormalities The gastroscope was then slowly withdrawn and removed. ESOPHAGUS: There was LA Class A esophagitis noted. A biopsy was performed using cold forceps. Sample sent for histology. DUODENUM: The duodenal mucosa appeared normal in the bulb and second portion of the duodenum. STOMACH: A single non-bleeding, shallow and clean-based ulcer ranging between 3-5 mm in size was found in the gastric antrum and on the greater curve of the stomach. Biopsies were taken around the ulcer. ADVERSE EVENTS: There were no complications. IMPRESSIONS: 1. There was LA Class A esophagitis noted; biopsy was performed 2. Normal duodenal mucosa in the bulb and second portion of the duodenum 3. Single ulcer ranging between 3-5 mm in size was found in the gastric antrum and on the greater curve of the stomach; biopsies were taken 4. Retroflexed views revealed no abnormalities RECOMMENDATIONS: 1. Await biopsy results. Biopsy results will not be ready for 7-10 days. If you don't hear from us in two weeks, call our office for biopsy results. 2. Anti-reflux regimen 3. Continue PPI 4. No treatment 5. Colonoscopy PATIENT CONDITION: stable DISPOSITION: Inpatient REPEAT EXAM: Return 3 years EGD pending biopsy results Katlin Andres MD eSigned: Katlin Andres MD 08/02/2018 3:44 PM cc: PATIENT NAME: Ananth Guillen MR#: [id number]
--- NOTE | 2018-08-02 15:50 | P.CONNP ---
History of Present Illness Service: Nephrology Consult date: 08/02/18 Requesting Physician: Hannah Mercedes Reason for Consult: ESRD management Primary Care Provider: Armand Flynn DO History of Present Illness: Patient is a 87-year-old white male with history of congestive heart failure, COPD, atrial fibrillation, ESRD on hemodialysis on Monday, Monday and Monday who had been sent due to low hemoglobin Patient last dialysis was yesterday His routine labs showed low hemoglobin and repeat labs hemoglobin was 6.8 he received packed red blood cells and was admitted for endoscopy. His hemodialysis day is Monday, Monday and Monday. Review of Systems Constitutional: Reports anorexia, Reports weight loss Eyes: Denies blind spots, Denies blurry vision, Denies bulging eyes, Denies change in vision, Denies double vision, Denies discharge, Denies dry eyes, Denies floaters, Denies irritation, Denies itchy eyes, Denies loss of vision, Denies pain, Denies requires corrective lenses, Denies sensitivity to light, Denies other Ears, Nose, Mouth, and Throat: Denies abnormal hearing, Denies bleeding gums, Denies bad breath, Denies change in voice, Denies dental pain, Denies difficulty swallowing, Denies dizziness, Denies dry mouth, Denies ear discharge , Denies ear pain, Denies facial pain, Denies headache(s), Denies hearing loss, Denies hoarseness, Denies lip swelling, Denies nosebleed, Denies mouth lesions, Denies mouth pain, Denies nasal congestion, Denies nasal discharge, Denies nasal obstruction, Denies nasal trauma, Denies neck lump, Denies neck pain, Denies nose pain, Denies pain with swallowing, Denies poor balance, Denies post nasal drip, Denies ringing in the ears, Denies sinus pain, Denies sinus pressure , Denies sore throat, Denies throat swelling, Denies tongue swelling, Denies other Cardiovascular: Denies chest pain, Denies chest pain at rest, Denies chest pain with activity, Denies excessive sweating, Denies fainting, Denies fast heart rate, Denies foot swelling, Denies generalized swelling, Denies irregular heart rhythm, Denies leg pain with activity, Denies leg sores, Denies leg swelling, Denies lightheadedness, Denies radiating jaw, neck or arm pain, Denies rapid, pounding, or irregular heartbeat, Denies shortness of breath, Denies shortness of breath with activity, Denies shortness of breath when lying down, Denies shortness of breath causing sudden awakening, Denies slow heart rate, Denies other Respiratory: Denies change in phlegm color, Denies chest congestion, Denies cough, Denies coughing up blood, Denies excessive phlegm production, Denies pain on inspiration, Denies pain with cough, Denies shortness of breath, Denies shortness of breath with activity, Denies snoring, Denies stridor, Denies wheezing, Denies other Musculoskeletal: Denies abnormal walking, Denies back pain, Denies body aches, Denies decreased muscle mass, Denies deformity, Denies joint pain, Denies joint swelling, Denies limited joint movement, Denies loss of height, Denies muscle cramps, Denies muscle weakness, Denies neck pain, Denies numbness, Denies radiating pain into limb, Denies stiffness, Denies tingling, Denies other Skin/Breast: Denies acne, Denies bleeding lesions, Denies boil, Denies breast swelling, Denies breast skin changes, Denies breast pain, Denies breast lump, Denies change in breast shape, Denies change in hair, Denies change in skin color, Denies changing lesions, Denies dry skin, Denies excessive hair growth, Denies hair loss, Denies itching, Denies lesions, Denies nail changes, Denies new lesions, Denies nipple discharge, Denies non-healing lesions, Denies redness , Denies sensitivity to light, Denies rash, Denies skin pain, Denies skin ulcer , Denies sores, Denies stretch myles, Denies unusual bruising, Denies wounds, Denies yellowing of the skin, Denies other Neurologic: Denies abnormal hearing, Denies abnormal movements, Denies abnormal speech, Denies abnormal walking, Denies behavioral changes, Denies burning sensations, Denies confusion, Denies dizziness, Denies fainting, Denies frequent falls, Denies headache(s), Denies lack of coordination, Denies localized weakness, Denies loss of vision, Denies memory loss, Denies numbness, Denies other visual disturbances, Denies radiating pain, Denies restless legs, Denies convulsions, Denies seizure-like activity, Denies sensory deficit, Denies tingling, Denies tingling/numbness/burning sensations, Denies tremor(s), Denies unsteadiness, Denies weakness, Denies other Psychiatric: Denies abnormal sleep pattern, Denies anxiety, Denies behavioral changes, Denies change in appetite, Denies change in sex drive, Denies confusion , Denies depression, Denies difficulty concentrating, Denies hearing things others do not hear, Denies hopelessness, Denies irritability, Denies lack of enjoyment, Denies memory loss, Denies mood swings, Denies panic attacks, Denies paranoia, Denies seeing things others do not see, Denies sensing things others do not sense, Denies tactile hallucinations, Denies thoughts of hurting/killing others, Denies thoughts of hurting/killing yourself, Denies other Endocrine: Denies cold intolerance, Denies excessive sweating, Denies flushing, Denies heat intolerance, Denies increased hunger, Denies increased thirst, Denies increased urination, Denies rapid, pounding, or irregular heartbeat, Denies other Hematologic/Lymphatic: Denies easy bleeding, Denies easy bruising, Denies enlarged lymph nodes, Denies other Allergic/Immunologic: Denies GI upset with certain foods, Denies hives, Denies itchy eyes, Denies lip swelling, Denies seasonal runny nose, Denies throat swelling, Denies tongue swelling, Denies wheezing, Denies other PMFSH - History History Provided By: Patient, Family Member - Medical History Medical History: Medical History (Last Reviewed 08/02/18 @ 15:48 by Janeen Millan MD) A-fib AV fistula BPH (benign prostatic hyperplasia) Dialysis patient ESRD (end stage renal disease) Hyperchloremia Hypertension - Surgical History Surgical History: Surgical History (Last Reviewed 08/02/18 @ 15:48 by Janeen Millan MD) Aortic valve replaced History of tonsillectomy Mitral valve replaced - Family History Family History: Family History (Last Reviewed 08/02/18 @ 15:48 by Janeen Millan MD) Other Family history normal - Social History I have reviewed the patient's Social History: Yes - Tobacco History Second Hand Smoke Exposure: No Tobacco Use In Past 30 Days: No Smoking Status: Former smoker Tobacco Type: Cigarettes - Alcohol History How Often Do You Have a Drink Containing Alcohol: 2 to 4 times a month - Substance Use History Substance History: No History of Abuse - Travel History Recent Travel in the [place] Within the Last 8 Weeks: No Recent Travel Out of the Country Within the Last 8 Weeks: No - Immunization History Tetanus Immunization: <5 Years Medications and Allergies Active Medications: Active Medications Acetaminophen (Tylenol) 650 mg PO UNSCH PRN PRN Reason: SEE LABEL COMMENTS Carvedilol (Coreg) 3.125 mg PO BID [facility] Last Admin: 08/02/18 10:46 Dose: 3.125 mg Clonidine HCl (Catapres) 0.1 mg PO UNSCH PRN PRN Reason: SEE LABEL COMMENTS Dextrose (D50w Vial) 50 ml IV.PUSH UNSCH PRN PRN Reason: PER HYPOGLYCEMIA PROTOCOL Diphenhydramine HCl (Benadryl) 25 mg PO UNSCH PRN PRN Reason: SEE LABEL COMMENTS Epoetin Taiwo (Epogen Inj) 10,000 unit IV.PUSH UNSCH PRN PRN Reason: SEE LABEL COMMENTS Ferrous Sulfate (Ferosul) 325 mg PO DAILY [facility] Gelatin (Gelfoam 12 Mm/7 Mm Topical) 1 foam TOPICAL PRN PRN PRN Reason: help stop bleeding from site Glucagon (Glucagon Inj) 1 mg OTHER PRN PRN PRN Reason: for Hypoglycemia Protocol Heparin Sodium (Porcine) (Heparin Inj) 8,000 units OTHER WITH DIALYSIS PRN PRN Reason: for machine prime Pantoprazole Sodium 80 mg/ (Sodium Chloride) 100 mls @ 10 mls/hr IV.CONT CONT [facility] Last Infusion: 08/02/18 05:00 Dose: Infused Albumin Human (Flexbumin 25% Inj) 100 mls @ 60 mls/hr IV.SIG WITH DIALYSIS PRN PRN Reason: hypotension / volume replace Sodium Chloride (Ns Inj) 1,000 mls @ 0 mls/hr OTHER .Q0M PRN PRN Reason: for prime and rinse back Sodium Chloride (Ns Inj) 1,000 mls @ 200 mls/hr OTHER .Q5H PRN PRN Reason: for dialyzer flush PRN Sodium Chloride (Ns Inj) 1,000 mls @ 0 mls/hr IV.CONT .Q0M PRN PRN Reason: hypotension / volume replace Lactated Ringer's (Lr 1000 Ml Inj) 1,000 mls @ 30 mls/hr IV.CONT .Q24H ONE Stop: 08/03/18 09:29 Sodium Chloride (Ns Inj) 500 mls @ 30 mls/hr IV.CONT .[id number] ONE Stop: 08/03/18 02:09 Insulin Aspart (Novolog Insulin Correctional Sugar Inj) 0 unit SQ ACHS AND 3AM [facility]; Protocol Last Admin: 08/02/18 11:41 Dose: Not Given Isosorbide Mononitrate (Imdur) 30 mg PO DAILY [facility] Last Admin: 08/02/18 10:46 Dose: 30 mg Mannitol (Mannitol Inj) 12.5 gm IV.PUSH UNSCH PRN PRN Reason: hypotension / volume replace Nitroglycerin (Nitrostat Sl) 0.4 mg SL Q5M PRN PRN Reason: CHEST PAIN Ondansetron HCl (Zofran Inj) 4 mg IV.PUSH Q6H PRN PRN Reason: NAUSEA Ondansetron HCl (Zofran Inj) 4 mg IV.PUSH UNSCH PRN PRN Reason: NAUSEA OR VOMITING Pravastatin Sodium (Pravachol) 10 mg PO DAILY [facility] Sevelamer Carbonate (Renvela) 800 mg PO TID [facility] Last Admin: 08/02/18 10:48 Dose: Not Given Sodium Chloride (Ns Flush) 2 ml IV.FLUSH PRN PRN PRN Reason: FLUSH AFTER USING IV ACCESS Sodium Chloride (Ns Flush) 2 ml IV.FLUSH BID [facility] Last Admin: 08/02/18 10:48 Dose: Not Given Sodium Chloride (Ns Flush) 2 ml IV.FLUSH PRN PRN PRN Reason: FLUSH AFTER USING IV ACCESS Sodium Chloride (Ns Flush) 5 ml IV.FLUSH PRN PRN PRN Reason: flush each lumen during HD Tamsulosin HCl (Flomax) 0.4 mg PO DAILY [facility] Allergies Allergy/AdvReac Type Severity Reaction Status Date / Time simvastatin Allergy Severe WEAKNESS Verified 08/01/18 17:14 Home Medications Medication Instructions Recorded Confirmed Type apixaban [Eliquis] 2.5 mg PO BID 08/01/18 08/01/18 History aspirin [Aspir-81] 81 mg PO DAILY 08/01/18 08/01/18 History carvedilol 3.125 mg PO BID 08/01/18 08/01/18 History ferrous sulfate [Iron (ferrous 325 mg PO DAILY 08/01/18 08/01/18 History sulfate)] isosorbide mononitrate 30 mg PO DAILY 08/01/18 08/01/18 History midodrine 10 mg PO WITH DIALYSIS 08/01/18 08/01/18 History pravastatin 10 mg PO DAILY 08/01/18 08/01/18 History sevelamer carbonate [Renvela] 800 mg PO TID 08/01/18 08/01/18 History tamsulosin 0.4 mg PO DAILY 08/01/18 08/01/18 History Exam Vital signs: Vital Signs 08/01/18 16:46 08/01/18 17:11 08/01/18 17:14 Temperature 97.3 F L Pulse Rate 81 81 Respiratory Rate 18 30 H Blood Pressure 100/46 L Pulse Oximetry 98 96 96 08/01/18 17:16 08/01/18 18:41 08/01/18 18:55 Temperature 97.7 F Pulse Rate 80 81 Respiratory Rate 19 19 Blood Pressure 114/56 L 111/59 L 107/55 L Pulse Oximetry 96 94 L 08/01/18 19:20 08/01/18 22:33 08/01/18 23:00 Temperature 97.7 F Pulse Rate 80 81 81 Respiratory Rate 20 18 20 Blood Pressure 107/52 L 111/53 L 108/59 L Pulse Oximetry 97 98 98 08/02/18 00:42 08/02/18 01:00 08/02/18 01:56 Temperature 98.3 F 98.3 F Pulse Rate 82 82 90 Respiratory Rate 18 18 Blood Pressure 100/54 L 100/54 L Pulse Oximetry 94 L 08/02/18 02:15 08/02/18 03:30 08/02/18 08:00 Temperature 97.8 F 97.4 F L Pulse Rate 82 82 80 Respiratory Rate 20 20 22 Blood Pressure 102/57 L 111/55 L 120/57 L Pulse Oximetry 96 97 08/02/18 11:08 Temperature Pulse Rate Respiratory Rate Blood Pressure Pulse Oximetry 95 Intake & Output 08/01/18 08/02/18 08/02/18 18:59 06:59 18:59 Intake Total 0 / 0 560 / 560 Balance 0 / 0 560 / 560 Weight 81.647 kg Intake: IV 100 / 100 Protonix Inj 80 MG In NS Inj 100 / 100 100 ML @ 10 mls/hr IV.CONT CONT [facility] Rx#:[id number] Oral 60 / 60 Intake (Blood Product) Amt 0 / 0 400 / 400 Rbc As-3 Leukoreduced Unit 0 / 0 [id number] Rbc As-3 Leukoreduced Unit 0 / 0 400 / 400 [id number] Other: # Voids 1 # Bowel Movements 1 Narrative: GENERAL: Well-nourished, well-developed patient. SKIN: Warm and dry. HEAD: Normocephalic. EYES: No scleral icterus. No injection or drainage. NECK: Supple, trachea midline. No JVD or lymphadenopathy. CARDIOVASCULAR: Irregularly irregular. RESPIRATORY: Breath sounds equal bilaterally. No accessory muscle use. GASTROINTESTINAL: Abdomen soft, non-tender, nondistended. EXTREMITIES: As above NEUROLOGICAL: Awake, alert, and oriented x 3. Non-focal. Results - Lab Results 08/02/18 06:57 08/02/18 06:57 Most recent lab results Calcium 8.8 mg/dL (8.5-10.1) 08/02/18 06:57 Assessment and Plan - Assessment (1) GI bleed Code(s): K92.2 - Gastrointestinal hemorrhage, unspecified Status: Acute (2) Symptomatic anemia Code(s): D64.9 - Anemia, unspecified Status: Acute (3) ESRD (end stage renal disease) on dialysis Code(s): N18.6 - End stage renal disease; Z99.2 - Dependence on renal dialysis Status: Acute - Plan Continue hemodialysis Monday, Monday and Monday next dialysis tomorrow GI bleed waiting for endoscopy results Continue to monitor while he is in the hospital Avoid nephrotoxic agents We will follow in a.m. (1) GI bleed Qualifiers: GI bleed type/associated pathology: greg Qualified Code(s): K92.1 - Greg
[2018-08-02] MEDS ORDERED: PEG 3350/E-Lyte Soln 4000 ML Bottle PO ONE (17:00)
[2018-08-02 17:40] LABS: Hematocrit 27.2 % (39.0-51.0); Hemoglobin 9.3 gm/dL (13.0-17.0)
[2018-08-03] MEDS: Pantoprazole Inj 80 MG in Sodium Chlor 0.9% Inj 100 ML IV.CONT SCH (02:50)
[2018-08-03] MEDS: Insulin NovoLOG Aspart Correctional Sugar Inj SQ SCH (05:05)
--- NOTE | 2018-08-03 08:57 | P.PN ---
Subjective Interval history: Follow-up visit end-stage renal disease on hemodialysis, HTN, age severe anemia , DM. Patient seen and examined today. Denies pain and discomfort. Denies SOB/ dyspnea. Denies chest pain, palpitations, headaches, dizziness. Denies fevers, chills, n/v/d. Denies dysuria. Patient refused colonoscopy. Discussed and explained with patient importance of colonoscopy secondary to his condition. Discussed possible discontinuation of some medications as per GI. Patient verbalized understanding. Also discussed with patient that he will need to follow-up with the GI doctors to make sure that he continues to have no bleeding. Physical Exam Vital signs: Vital Signs 08/02/18 11:08 08/02/18 12:00 08/02/18 16:00 Temperature Pulse Rate 80 82 Respiratory Rate Blood Pressure Pulse Oximetry 95 08/02/18 16:02 08/02/18 16:34 08/02/18 20:00 Temperature 97.5 F L 97.5 F L 97.4 F L Pulse Rate 83 84 81 Respiratory Rate 16 16 18 Blood Pressure 108/53 L 106/54 L 120/60 Pulse Oximetry 96 96 99 08/02/18 23:57 08/03/18 00:00 08/03/18 03:49 Temperature 97.6 F Pulse Rate 81 81 83 Respiratory Rate 18 Blood Pressure 122/60 Pulse Oximetry 96 08/03/18 04:00 08/03/18 08:00 Temperature 97.1 F L 97.3 F L Pulse Rate 82 80 Respiratory Rate 18 18 Blood Pressure 113/59 L 109/55 L Pulse Oximetry 95 95 Intake & Output 08/02/18 08/03/18 08/03/18 18:59 06:59 18:59 Intake Total 150 / 150 Balance 150 / 150 Weight 81.64 kg Intake: Oral 0 / 0 Anesthesia Amount 150 / 150 Other: # Voids 3 Narrative: Gen.: No acute distress Head: Normocephalic. Atraumatic. EENT: Pupils equal round and reactive to light. Nose without drainage. Airway intact. Cardiovascular: Irregular rate and rhythm. No murmurs, rubs or gallops. Respiratory: Lungs clear to auscultation bilaterally. No wheezes or rhonchi. Abdomen: Soft, nontender, nondistended. Musculoskeletal: No gross deformities. No edema. AV fistula in place with palpable thrill. Skin: No obvious rashes or erythema. Neuro: Sensory and motor grossly intact. Cranial nerves II through XII grossly intact. Results - Labs CBC & Chem 7: 08/03/18 09:55 08/03/18 08:05 Laboratory Results - last 24 hr 08/02/18 08/02/18 08/02/18 06:57 11:27 16:25 Hgb Hct Sodium 138 Potassium 4.3 D Chloride 104 Carbon Dioxide 24.9 Anion Gap 9 BUN 26 H Creatinine 4.78 H Estimated GFR 12 L POC Glucose 110 112 H Random Glucose 101 Calcium 8.8 08/02/18 08/02/18 08/03/18 17:11 20:26 05:04 Hgb 9.3 L Hct 27.2 L Sodium Potassium Chloride Carbon Dioxide Anion Gap BUN Creatinine Estimated GFR POC Glucose 216 H 134 H Random Glucose Calcium Assessment and Plan - Plan 87-year-old male with a past medical history significant for end-stage renal disease on dialysis Monday, hypertension, hyperlipidemia, atrial fibrillation anticoagulated on Eliquis, diabetes mellitus and coronary artery disease presents to the emergency department for the evaluation of a low hemoglobin Anemia, acute Lower GI bleed -Hemoccult positive in the n.p.o. -Serial H&H -Holding Eliquis -Gastroenterology consulted, appreciate gordo, KIERAN ASA for now, follow up in office next week. -S/P EGD to have LA class a esophagitis, biopsy performed. Normal duodenal mucosa in the bulb and second portion of the duodenum. Single also ranging between 3-5 mm in size was found in the gastric antrum and on the greater curve of the stomach, biopsies were taken. Retroflexed views revealed no abnormalities. Continue with PPI, wait for biopsy colonoscopy recommended. -Protonix drip, will switch to p.o. on discharge -Denies hematochezia, hematemesis, hematuria Atrial fibrillation recent -Holding Eliquis as above, will restart Eliquis KIERAN medina aspirin for now. -Continue beta-ignacia Diabetes mellitus -Sliding scale insulin -Monitor blood glucose Hypertension/hyperlipidemia/coronary artery disease -Discontinue aspirin -Continue all other home medications DVT prop no chemoprophylaxis for now, SCDs Full code Discussed condition patient, nurse, Dr. Ritter Discharge Planning: Plan to DC home with home health care when clinically improved.
[2018-08-03 09:20] LABS: Calcium 9.2 mg/dL (8.5-10.1); Carbon Dioxide 24.3 meq/L (21.0-32.0); Potassium 4.8 meq/L (3.5-5.1)
--- NOTE | 2018-08-03 10:29 | P.PNGI ---
Subjective Interval history: Patient resting comfortably undergoing hemodialysis treatment. Denies any noted bleeding. Denies any nausea or vomiting. <Michelle White - Last Filed: 08/03/18 10:17> Physical Exam Vital signs: Vital Signs 08/02/18 11:08 08/02/18 12:00 08/02/18 16:00 Temperature Pulse Rate 80 82 Respiratory Rate Blood Pressure Pulse Oximetry 95 08/02/18 16:02 08/02/18 16:34 08/02/18 20:00 Temperature 97.5 F L 97.5 F L 97.4 F L Pulse Rate 83 84 81 Respiratory Rate 16 16 18 Blood Pressure 108/53 L 106/54 L 120/60 Pulse Oximetry 96 96 99 08/02/18 23:57 08/03/18 00:00 08/03/18 03:49 Temperature 97.6 F Pulse Rate 81 81 83 Respiratory Rate 18 Blood Pressure 122/60 Pulse Oximetry 96 08/03/18 04:00 08/03/18 08:00 Temperature 97.1 F L 97.3 F L Pulse Rate 82 80 Respiratory Rate 18 18 Blood Pressure 113/59 L 109/55 L Pulse Oximetry 95 95 Intake & Output 08/02/18 08/03/18 08/03/18 18:59 06:59 18:59 Intake Total 150 / 150 Balance 150 / 150 Weight 81.64 kg Intake: Oral 0 / 0 Anesthesia Amount 150 / 150 Other: # Voids 3 - Constitutional no acute distress - Routine HEENT Exam Head: Present: normocephalic - Routine Respiratory Exam Present: CTA bilaterally. Absent: accessory muscle use - Routine Abdominal Exam Present: soft, normoactive bowel sounds. Absent: tenderness, distended, guarding, firm - Routine Skin Exam Present: dry, warm - Routine Neurological Exam Present: alert, oriented X3 - Detailed Neurological Exam: Coma Scale Eye Opening: Spontaneous Verbal Response: Oriented Motor Response: Obey commands Dale Coma Scale Total: 15 - Routine Psychiatric Exam Present: normal affect, cooperative <Michelle White - Last Filed: 08/03/18 10:17> Vital signs: Vital Signs 08/02/18 16:00 08/02/18 16:02 08/02/18 16:34 Temperature 97.5 F L 97.5 F L Pulse Rate 82 83 84 Respiratory Rate 16 16 Blood Pressure 108/53 L 106/54 L Pulse Oximetry 96 96 08/02/18 20:00 08/02/18 23:57 08/03/18 00:00 Temperature 97.4 F L 97.6 F Pulse Rate 81 81 81 Respiratory Rate 18 18 Blood Pressure 120/60 122/60 Pulse Oximetry 99 96 08/03/18 03:49 08/03/18 04:00 08/03/18 08:00 Temperature 97.1 F L 97.3 F L Pulse Rate 83 82 80 Respiratory Rate 18 18 Blood Pressure 113/59 L 109/55 L Pulse Oximetry 95 95 Intake & Output 08/02/18 08/03/18 08/03/18 18:59 06:59 18:59 Intake Total 150 / 150 Output Total 3000 / 3000 Balance 150 / 150 -3000 / -3000 Weight 81.64 kg Intake: Oral 0 / 0 Anesthesia Amount 150 / 150 Output: Hemodialysis Amount 3000 / 3000 Other: # Voids 3 <Katlin Andres - Last Filed: 08/03/18 13:09> Results - Labs CBC & Chem 7: 08/02/18 17:11 08/03/18 08:05 Laboratory Results - last 24 hr 08/02/18 08/02/18 08/02/18 11:27 16:25 17:11 Hgb 9.3 L Hct 27.2 L Sodium Potassium Chloride Carbon Dioxide Anion Gap BUN Creatinine Estimated GFR POC Glucose 110 112 H Random Glucose Calcium 08/02/18 08/03/18 08/03/18 20:26 05:04 08:05 Hgb Hct Sodium 136 Potassium 4.8 Chloride 102 Carbon Dioxide 24.3 Anion Gap 10 BUN 36 H Creatinine 6.27 H Estimated GFR 9 L POC Glucose 216 H 134 H Random Glucose 128 H Calcium 9.2 08/03/18 08/03/18 08:51 08:54 Hgb Hct Sodium Potassium Chloride Carbon Dioxide Anion Gap BUN Creatinine Estimated GFR POC Glucose 195 H 138 H Random Glucose Calcium <Michelle White - Last Filed: 08/03/18 10:17> - Labs CBC & Chem 7: 08/03/18 09:55 08/03/18 08:05 Laboratory Results - last 24 hr 08/01/18 08/02/18 08/02/18 22:27 16:25 17:11 WBC RBC Hgb 9.3 L Hct 27.2 L MCV MCH MCHC RDW Plt Count MPV Neut % (Auto) Lymph % (Auto) Grant % (Auto) Eos % (Auto) Baso % (Auto) Neut # (Auto) Lymph # (Auto) Grant # (Auto) Eos # (Auto) Baso # (Auto) WBC Differential Differential Comment Sodium Potassium Chloride Carbon Dioxide Anion Gap BUN Creatinine Estimated GFR POC Glucose 150 H 112 H Random Glucose Calcium 08/02/18 08/03/18 08/03/18 20:26 05:04 08:05 WBC RBC Hgb Hct MCV MCH MCHC RDW Plt Count MPV Neut % (Auto) Lymph % (Auto) Grant % (Auto) Eos % (Auto) Baso % (Auto) Neut # (Auto) Lymph # (Auto) Grant # (Auto) Eos # (Auto) Baso # (Auto) WBC Differential Differential Comment Sodium 136 Potassium 4.8 Chloride 102 Carbon Dioxide 24.3 Anion Gap 10 BUN 36 H Creatinine 6.27 H Estimated GFR 9 L POC Glucose 216 H 134 H Random Glucose 128 H Calcium 9.2 08/03/18 08/03/18 08/03/18 08:51 08:54 09:55 WBC 8.1 RBC 2.85 L Hgb 9.1 L Hct 27.6 L MCV 96.9 MCH 32.0 MCHC 33.0 RDW 19.1 H Plt Count 153 MPV 8.0 Neut % (Auto) 80.4 H Lymph % (Auto) 8.0 L Grant % (Auto) 8.2 H Eos % (Auto) 2.5 Baso % (Auto) 0.9 Neut # (Auto) 6.5 Lymph # (Auto) 0.7 L Grant # (Auto) 0.7 Eos # (Auto) 0.2 Baso # (Auto) 0.1 WBC Differential . Differential Comment Auto diff final Sodium Potassium Chloride Carbon Dioxide Anion Gap BUN Creatinine Estimated GFR POC Glucose 195 H 138 H Random Glucose Calcium 08/03/18 11:47 WBC RBC Hgb Hct MCV MCH MCHC RDW Plt Count MPV Neut % (Auto) Lymph % (Auto) Grant % (Auto) Eos % (Auto) Baso % (Auto) Neut # (Auto) Lymph # (Auto) Grant # (Auto) Eos # (Auto) Baso # (Auto) WBC Differential Differential Comment Sodium Potassium Chloride Carbon Dioxide Anion Gap BUN Creatinine Estimated GFR POC Glucose 148 H Random Glucose Calcium <Katlin Andres - Last Filed: 08/03/18 13:09> Assessment and Plan - Plan Anemia with guaiac positive stoolpatient was sent from dialysis center yesterday for evaluation of acute anemia. Patient is poor historian. States he does not regularly check his stools, when he does they range from brown to black. Of note, patient is on iron supplementation. Denies any nausea, vomiting, abdominal pain, diarrhea. Patient is on Eliquis for anticoagulation, last dosage was yesterday morning prior to dialysis. Patient has been previously admitted to [facility] in 2009 for severe anemia secondary to acute GI bleed. EGD at that time revealed multiple gastric erosions and one smaller discrete antral ulceration as well. Biopsy of the stomach revealed reactive gastropathy and prominent foveolar gland hyperplasia with scattered chronic inflammation, stain negative for H. pylori. Patient thinks that he had a colonoscopy done 3-4 years ago, believes this was at [facility] although I do not see it in the records. He states that the exam was normal and he was told he would not need a repeat exam. Denies taking any NSAIDs. Denies EtOH. 08/03/2018 Anemia with guaiac positive stool Patient resting comfortably undergoing hemodialysis treatment. Refused prep for colonoscopy procedure today. Agrees to have exam done as an outpatient. Denies any noted blood in stool denies nausea or vomiting. 08/02/2018 EGD done and revealed the following findings--> There was LA Class A esophagitis noted; biopsy was performed. Normal duodenal mucosa in the bulb and second portion of the duodenum. Single ulcer ranging between 3-5 mm in size was found in the gastric antrum and on the greater curve of the stomach; biopsies were taken. Retroflexed views revealed no abnormalities.(08/02/18) hemoglobin 9.3 hematocrit 27.2 stable. Today's CBC pending. Plan -Monitor H&H -PPI -Anti-reflux medication -Await biopsy results-patient agrees to call GI for follow-up and biopsy results -Monitor for bleeding -Supportive care -GI will sign off at this time-patient agrees to follow-up as outpatient for colonoscopy. This patient has been seen by myself and Dr. Andres and this note is written on his behalf - Attending Attestation Dr. Andres <Michelle White - Last Filed: 08/03/18 10:17> - Plan Seen and examined with [employer], no obvious bleeeding. refused bowel prep. Agrees to do this as outpatient. FU GI upon dc. GI will sign off, thank you <Katlin Andres - Last Filed: 08/03/18 13:09>
--- NOTE | 2018-08-03 11:16 | P.PNNP ---
Subjective Interval history: Patient is seen during hemodialysis Physical Exam Vital signs: Vital Signs 08/02/18 12:00 08/02/18 16:00 08/02/18 16:02 Temperature 97.5 F L Pulse Rate 80 82 83 Respiratory Rate 16 Blood Pressure 108/53 L Pulse Oximetry 96 08/02/18 16:34 08/02/18 20:00 08/02/18 23:57 Temperature 97.5 F L 97.4 F L Pulse Rate 84 81 81 Respiratory Rate 16 18 Blood Pressure 106/54 L 120/60 Pulse Oximetry 96 99 08/03/18 00:00 08/03/18 03:49 08/03/18 04:00 Temperature 97.6 F 97.1 F L Pulse Rate 81 83 82 Respiratory Rate 18 18 Blood Pressure 122/60 113/59 L Pulse Oximetry 96 95 08/03/18 08:00 Temperature 97.3 F L Pulse Rate 80 Respiratory Rate 18 Blood Pressure 109/55 L Pulse Oximetry 95 Intake & Output 08/02/18 08/03/18 08/03/18 18:59 06:59 18:59 Intake Total 150 / 150 Balance 150 / 150 Weight 81.64 kg Intake: Oral 0 / 0 Anesthesia Amount 150 / 150 Other: # Voids 3 Narrative: GENERAL: Well-nourished, well-developed patient. SKIN: Warm and dry. HEAD: Normocephalic. EYES: No scleral icterus. No injection or drainage. NECK: Supple, trachea midline. No JVD or lymphadenopathy. CARDIOVASCULAR: Irregularly irregular. RESPIRATORY: Breath sounds equal bilaterally. No accessory muscle use. GASTROINTESTINAL: Abdomen soft, non-tender, nondistended. EXTREMITIES: As above NEUROLOGICAL: Awake, alert, and oriented x 3. Non-focal. Assessment and Plan - Assessment (1) GI bleed Code(s): K92.2 - Gastrointestinal hemorrhage, unspecified Status: Acute Qualifiers: GI bleed type/associated pathology: melena Qualified Code(s): K92.1 - Melena (2) Symptomatic anemia Code(s): D64.9 - Anemia, unspecified Status: Acute (3) ESRD (end stage renal disease) on dialysis Code(s): N18.6 - End stage renal disease; Z99.2 - Dependence on renal dialysis Status: Acute - Plan Continue hemodialysis Monday, Monday and Casey GI bleed patient will be considered for colonoscopy Hemodialysis proceeding noted 3 L of ultrafiltration
[2018-08-03 11:27] LABS: Baso # (Auto) 0.1 th/mm3 (0.0-0.2); Baso % (Auto) 0.9 % (0.0-2.0); Eos # (Auto) 0.2 th/mm3 (0.0-0.4); Eos % (Auto) 2.5 % (0.0-4.0); Hematocrit 27.6 % (39.0-51.0); Hemoglobin 9.1 gm/dL (13.0-17.0); Lymph # (Auto) 0.7 th/mm3 (1.0-4.8); Mean Corpuscular Volume 96.9 fL (80.0-100.0); Mono # (Auto) 0.7 th/mm3 (0.0-0.9); Mono % (Auto) 8.2 % (0.0-8.0); Neut # (Auto) 6.5 th/mm3 (1.8-7.7); Neut % (Auto) 80.4 % (16.0-70.0); Platelet Count 153 th/mm3 (150-450); Red Blood Count 2.85 mil/mm3 (4.50-5.90); Red Cell Distribution Width 19.1 % (11.6-17.2); White Blood Count 8.1 th/mm3 (4.0-11.0)
--- NOTE | 2018-08-03 14:28 | P.DS ---
Date of admission: 08/01/18 19:16 Primary care physician: Armand Flynn DO Attending physician on discharge: Stas Ritter Anticipated date of discharge: 08/03/18 Brief History from admission: 87-year-old male with a past medical history significant for end-stage renal disease on dialysis Monday, hypertension, hyperlipidemia, atrial fibrillation anticoagulated on Eliquis, diabetes mellitus and coronary artery disease presents to the emergency department for the evaluation of a low hemoglobin. The patient was in dialysis earlier today when he was referred to the emergency department secondary to anemia. He is an extremely poor historian and cannot tell me if he has been having dark stools or blood per rectum. He denies chest pain or shortness of breath. No fatigue or dizziness. No fevers/chills. No abdominal pain. No nausea/vomiting/diarrhea. No lateralizing signs/symptoms. DS: Diagnosis - Discharge Diagnosis (1) ESRD (end stage renal disease) on dialysis Status: Acute (2) GI bleed Status: Acute (3) Symptomatic anemia Status: Acute DS: Medications - Discharge Medications Prescriptions: pantoprazole [Protonix] 40 mg PO BID #30 ea DS: Summary Hospital Course: 87-year-old male with a past medical history significant for end-stage renal disease on dialysis Monday, hypertension, hyperlipidemia, atrial fibrillation anticoagulated on Eliquis, diabetes mellitus and coronary artery disease presents to the emergency department for the evaluation of a low hemoglobin. Globin 6.8/21.1. Patient received 2 units of blood transfusion packed RBCs. Hemoccult was positive. Eliquis and aspirin were held initially. GI consulted to follow patient. Patient is status post EGD found to have LA class a esophagitis, biopsy performed. Normal duodenal mucosa in the bulb and second portion of the duodenum. Single also ranging between 3-5 mm in size was found in the gastric antrum and on the greater curve of the stomach, biopsies were taken. Retroflexed views revealed no abnormalities. Continue with PPI, wait for biopsy colonoscopy recommended. This has been extensively discussed with patient. He was on Protonix drip, will switch over to p.o. on discharge. Will discontinue aspirin as per recommendation of GI. He will continue his Eliquis. He needs to follow-up with GI after 1 week. Patient has been denies hematochezia, hematemesis, hematuria. States he is feeling overall better. He will continue his other medications from home except for aspirin. Patient has refused colonoscopy. This is been discussed with him extensively secondary to his condition. He will follow-up with GI. We will plan to DC home patient with home health care for compliance and monitoring for bleeding. Patient has met maximal benefits of hospitalization. Clinically stable for discharge. Follow-up with PCP, follow-up with GI. - Time Spent with Patient Total time spent providing and/or coordinating discharge services: Greater than 30 minutes - Quality: VTE Deep Vein Thrombosis/Pulmonary Embolism Present on Admission: No Exam Vital signs: Vital Signs 08/02/18 16:00 08/02/18 16:02 08/02/18 16:34 Temperature 97.5 F L 97.5 F L Pulse Rate 82 83 84 Respiratory Rate 16 16 Blood Pressure 108/53 L 106/54 L Pulse Oximetry 96 96 08/02/18 20:00 08/02/18 23:57 08/03/18 00:00 Temperature 97.4 F L 97.6 F Pulse Rate 81 81 81 Respiratory Rate 18 18 Blood Pressure 120/60 122/60 Pulse Oximetry 99 96 08/03/18 03:49 08/03/18 04:00 08/03/18 08:00 Temperature 97.1 F L 97.3 F L Pulse Rate 83 82 80 Respiratory Rate 18 18 Blood Pressure 113/59 L 109/55 L Pulse Oximetry 95 95 Intake & Output 08/02/18 08/03/18 08/03/18 18:59 06:59 18:59 Intake Total 150 / 150 Output Total 3000 / 3000 Balance 150 / 150 -3000 / -3000 Weight 81.64 kg Intake: Oral 0 / 0 Anesthesia Amount 150 / 150 Output: Hemodialysis Amount 3000 / 3000 Other: # Voids 3 Narrative: Gen.: No acute distress Head: Normocephalic. Atraumatic. EENT: Pupils equal round and reactive to light. Nose without drainage. Airway intact. Cardiovascular: Irregular rate and rhythm. No murmurs, rubs or gallops. Respiratory: Lungs clear to auscultation bilaterally. No wheezes or rhonchi. Abdomen: Soft, nontender, nondistended. Musculoskeletal: No gross deformities. No edema. AV fistula in place with palpable thrill. Skin: No obvious rashes or erythema. Neuro: Sensory and motor grossly intact. Cranial nerves II through XII grossly intact. Results Procedures completed during hospitalization: 08/02/18 EGD Pending studies at discharge: Pending at discharge 08/02/18 07:26 Surgical [PTH] Routine Labs on day of discharge: Labs from last 24 hours 08/03/18 08/03/18 08/03/18 11:47 09:55 08:54 WBC 8.1 RBC 2.85 L Hgb 9.1 L Hct 27.6 L MCV 96.9 MCH 32.0 MCHC 33.0 RDW 19.1 H Plt Count 153 MPV 8.0 Neut % (Auto) 80.4 H Lymph % (Auto) 8.0 L Elbert % (Auto) 8.2 H Eos % (Auto) 2.5 Baso % (Auto) 0.9 Neut # (Auto) 6.5 Lymph # (Auto) 0.7 L Elbert # (Auto) 0.7 Eos # (Auto) 0.2 Baso # (Auto) 0.1 WBC Differential . Differential Comment Auto diff final Sodium Potassium Chloride Carbon Dioxide Anion Gap BUN Creatinine Estimated GFR POC Glucose 148 H 138 H Random Glucose Calcium 08/03/18 08/03/18 08/03/18 08:51 08:05 05:04 WBC RBC Hgb Hct MCV MCH MCHC RDW Plt Count MPV Neut % (Auto) Lymph % (Auto) Elbert % (Auto) Eos % (Auto) Baso % (Auto) Neut # (Auto) Lymph # (Auto) Elbert # (Auto) Eos # (Auto) Baso # (Auto) WBC Differential Differential Comment Sodium 136 Potassium 4.8 Chloride 102 Carbon Dioxide 24.3 Anion Gap 10 BUN 36 H Creatinine 6.27 H Estimated GFR 9 L POC Glucose 195 H 134 H Random Glucose 128 H Calcium 9.2 08/02/18 08/02/18 08/02/18 20:26 17:11 16:25 WBC RBC Hgb 9.3 L Hct 27.2 L MCV MCH MCHC RDW Plt Count MPV Neut % (Auto) Lymph % (Auto) Elbert % (Auto) Eos % (Auto) Baso % (Auto) Neut # (Auto) Lymph # (Auto) Elbert # (Auto) Eos # (Auto) Baso # (Auto) WBC Differential Differential Comment Sodium Potassium Chloride Carbon Dioxide Anion Gap BUN Creatinine Estimated GFR POC Glucose 216 H 112 H Random Glucose Calcium 08/01/18 22:27 WBC RBC Hgb Hct MCV MCH MCHC RDW Plt Count MPV Neut % (Auto) Lymph % (Auto) Elbert % (Auto) Eos % (Auto) Baso % (Auto) Neut # (Auto) Lymph # (Auto) Elbert # (Auto) Eos # (Auto) Baso # (Auto) WBC Differential Differential Comment Sodium Potassium Chloride Carbon Dioxide Anion Gap BUN Creatinine Estimated GFR POC Glucose 150 H Random Glucose Calcium - Impressions ITS Impressions Chest X-Ray 08/01/18 17:04 CONCLUSION: Cardiomegaly. Right lower lung atelectasis/consolidation and likely right effusion. Discharge Plan - Discharge Disposition Patient Disposition: /Home Health Service - Discharge Condition Condition: Stable - Discharge Order Discharge Orders: Discharge Order (Routine); Ordered 08/03/18 Ordered By: Fadi Link - Physicians Team Primary Care Provider: Armand Flynn Attending Provider: Stas Ritter Other Providers: Janeen iMllan MD ; Katlin Andres MD
--- NOTE | 2018-08-03 14:29 | P.DCO ---
- Diagnosis (1) ESRD (end stage renal disease) on dialysis Status: Acute (2) GI bleed Status: Acute - Physical Therapy Order: Evaluate and treat - Home Health Nursing Order: Signs/symptoms of disease process, Nursing assessment with vital signs - Case Management Consult Yes - Certification I have seen patient Ananth Guillen on 08/03/18. My clinical findings support the need for the requested home health care services because: Limited mobility due to disease progression, Medication compliance is questionable I certify that my clinical findings support that this patient is homebound because: Unsteady gait/balance, Unable to use public transportation (2) GI bleed Qualifiers: GI bleed type/associated pathology: melena Qualified Code(s): K92.1 - Emelina
== END 2018-08-03 16:53 | disposition home health service (06) ==
LOC: NEPC 16:36 → NEDA 19:16 → N05 22:35
PROVIDERS: ADMIT Hospitalist; ATTEND Hospitalist
PROC: PANENDO (2018-08-02 15:30)

== ENCOUNTER 2018-09-20 22:03 | Inpatient (IN) ==
[2018-09-20] MEDS ORDERED: Morphine Sulfate Inj 2 MG/ML Vial IV.PUSH ONE (22:26)
[2018-09-20] MEDS ORDERED: diazePAM 2 MG Tablet PO ONE (22:28)
--- NOTE | 2018-09-20 22:34 | ED ---
HPI General Chief Complaint: Back Pain/Injury Stated Complaint: Poss Kidney Stones Time Seen by Provider: 09/20/18 22:14 Source: patient Mode of arrival: ambulatory Limitations: no limitations History of Present Illness HPI Narrative: The patient is a 88-year-old male who presents to the emergency department via private vehicle for back pain and spasms. The patient states his symptoms started this morning when he woke up, when he went to move and turn he noticed he was having low back pain. The patient states the pain is intermittent, spasmodic, and affects the lower aspect of the back. Patient also notes occasional spasms when he moves his right upper extremity. The patient denies any trauma or recent falls, does have a history of kidney stones when he was in his 20s. 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 Fierro. The patient goes to dialysis on Mondays, Wednesdays, and Fridays. The patient last had dialysis yesterday. He makes minimal urine throughout the week, normally red to clear. He denies any abdominal pain, nausea, or vomiting. Symptoms are moderate. He denies any radiculopathy of the pain down the lower extremities and denies any acute numbness or tingling of the lower extremities. MD Complaint: Reports back pain Onset (ago): hour(s) Duration: Reports intermittent Similar Symptoms Previously: No Location: Reports lumbar spine Severity: moderate Quality: Reports spasming Radiation: Reports none Severity scale (1-10): 6 Relieving factors: none Exacerbating factors: movement Context: Reports unknown Associated symptoms: Reports denies other symptoms Related Data Home Medications Medication Instructions Recorded Confirmed apixaban [Eliquis] 2.5 mg PO BID 08/01/18 09/20/18 carvedilol 3.125 mg PO BID 08/01/18 09/20/18 ferrous sulfate [Iron (ferrous 325 mg PO DAILY 08/01/18 09/20/18 sulfate)] isosorbide mononitrate 30 mg PO DAILY 08/01/18 09/20/18 midodrine 10 mg PO WITH DIALYSIS 08/01/18 09/20/18 pravastatin 10 mg PO DAILY 08/01/18 09/20/18 sevelamer carbonate [Renvela] 800 mg PO TID 08/01/18 09/20/18 tamsulosin 0.4 mg PO DAILY 08/01/18 09/20/18 aspirin [Aspir-81] 81 mg PO DAILY 09/20/18 09/20/18 trazodone 25 mg PO DAILY 09/20/18 09/20/18 zinc 50 mg PO DAILY 09/20/18 09/20/18 Previous Rx's Medication Instructions Recorded pantoprazole [Protonix] 40 mg PO BID #30 ea 08/03/18 Allergies Allergy/AdvReac Type Severity Reaction Status Date / Time simvastatin Allergy Severe WEAKNESS Verified 09/20/18 22:15 Review of Systems ROS: all other systems reviewed are negative PENDING SALE TO [facility] Social History Social History Substance History: No History of Abuse Second Hand Smoke Exposure: No Smoking Status: Former smoker Tobacco Type: Cigarettes How Often Do You Have a Drink Containing Alcohol: Never Recent Travel in [facility] within the Last 8 Weeks: No Recent Out of Country Travel within the Last 8 Weeks: No Immunization History Tetanus Immunization: Unsure Exam Narrative Exam Narrative: GENERAL: Awake, alert, pleasant 88-year-old male who appears his stated age and is in no acute respiratory distress. SKIN: Focused skin assessment warm/dry. HEAD: Atraumatic. Normocephalic. EYES: No injection or drainage. ENT: No nasal bleeding or discharge. Mucous membranes pink and moist. NECK: Trachea midline. No JVD. CARDIOVASCULAR: Pacemaker in place right upper chest wall. RESPIRATORY: No accessory muscle use. Clear to auscultation. Breath sounds equal bilaterally. GASTROINTESTINAL: Abdomen soft, diastases of the anterior abdominal wall. No guarding or rigidity. MUSCULOSKELETAL: AV fistula left upper extremity with positive thrill. Bilateral lower extremity pitting edema. Back: Tenderness over the right paravertebral muscle. No midline tenderness. Spasm of the right paravertebral muscle noted. NEUROLOGICAL: Awake and alert. No obvious cranial nerve deficits. Motor grossly within normal limits. Normal speech. PSYCHIATRIC: Appropriate mood and affect; insight and judgment normal. Course Initial Documented Vital Signs Temperature 98.1 F 09/20/18 22:06 Pulse Rate 81 09/20/18 22:06 Respiratory Rate 26 H 09/20/18 22:06 Blood Pressure 121/59 L 09/20/18 22:06 Pulse Oximetry 95 09/20/18 22:06 Last Documented Vital Signs Temperature 98.1 F 09/20/18 22:06 Pulse Rate 82 09/21/18 00:47 Respiratory Rate 16 09/21/18 02:01 Blood Pressure 109/56 L 09/21/18 00:47 Pulse Oximetry 97 09/21/18 00:47 Sign Out Sign Out Data: Patient Sign Out occurred on 09/20/18 at 23:10. Patient's care was discussed, and care was transferred from Nader Prajapati MD to Kamla Francisco MD. Sign Out Comment: 88-year-old male with a history of ESRD on HD, followed by Dr. Fierro, dialysis Monday, Monday, Monday, last dialysis yesterday. Patient awakened this morning with low back pain, denies trauma, pain worse with movement but occasionally still present at rest. Pain is intermittent, spasmodic, and worse with certain movements. If patient's workup is unremarkable and there is no significant vertebral compression fracture, patient can be discharged home. Last updated by Nader Prajapati MD at 09/20/18 22:54 Post-Handoff Eval: Patient is an 88 year old male who comes in complaining of lower back pain that is coming in waves. He was given morphine, decadron, Valium. CT shows renal stones, no lumbar spine acute findings. Patient still having pain. Given Flexeril without relief. CT abd/pelvis performed shows possible stone within the ureter. Patient given morphine. He says nothing is controlling his pain. He will be placed in observation for further management. Medical Decision Making MDM Narrative Medical decision making narrative: IV was established, labs are drawn and sent, and the patient was placed on cardiac telemetry monitoring and continuous pulse oximetry monitoring. The patient was administered morphine, Zofran, Decadron, and Valium. The patient appears to have muscle spasms of the low lumbar spine, may be musculoskeletal in nature or secondary to possible vertebral fracture. The patient is at risk for osteopenia and vertebral fracture secondary to history of end-stage renal disease on hemodialysis. Therefore, CT of the lumbar spine was ordered to evaluate for possible vertebral fracture. The patient's labs will most likely reveal elevated creatinine, and potassium is unremarkable and the patient's workup is within normal limits and his CT reveals no significant vertebral compression fracture, the patient most likely can be discharged home. I doubt nephrolithiasis causing bilateral low back pain who makes very little urine. Medical Screen Exam Complete: Yes Emergency Medical Condition: Yes Differential Diagnosis Differential Diagnosis: Doses includes muscle spasm, lumbar vertebral compression fracture, nephrolithiasis, AAA, radiculopathy, herniated disc, spinal stenosis. Medical Records Medical records reviewed: Yes I reviewed the patient's medical records. Lab Data Lab results reviewed: Yes I reviewed the patient's lab results. Result diagrams: 09/20/18 22:35 09/20/18 22:35 Lab Results 09/20/18 09/20/18 Range/Units 22:35 22:35 WBC 13.8 H (4.0-11.0) th/mm3 RBC 3.29 L (4.50-5.90) mil/mm3 Hgb 10.1 L (13.0-17.0) gm/dL Hct 31.8 L (39.0-51.0) % MCV 96.6 (80.0-100.0) fL MCH 30.8 (27.0-34.0) pg MCHC 31.9 L (32.0-36.0) % RDW 16.6 (11.6-17.2) % Plt Count 127 L (150-450) th/mm3 MPV 8.4 (7.0-11.0) fL Prelim Diff (Auto) Slide review pending Neut % (Auto) 91.1 H (16.0-70.0) % Lymph % (Auto) 3.3 L (9.0-44.0) % [place] % (Auto) 5.3 (0.0-8.0) % Eos % (Auto) 0.0 (0.0-4.0) % Baso % (Auto) 0.3 (0.0-2.0) % Neut # (Auto) 12.5 H (1.8-7.7) th/mm3 Lymph # (Auto) 0.5 L (1.0-4.8) th/mm3 [place] # (Auto) 0.7 (0.0-0.9) th/mm3 Eos # (Auto) 0.0 (0.0-0.4) th/mm3 Baso # (Auto) 0.0 (0.0-0.2) th/mm3 WBC Differential Manual diff final Seg Neuts % (Manual) 80 H (16-70) % Band Neuts % (Manual) 12 H (0-6) % Lymphocytes % (Manual) 1 L (9-44) % Monocytes % (Manual) 2 (0-8) % Eosinophils % (Manual) 1 (0-4) % Metamyelocytes % (Man) 4 H (0-1) % Abs Neuts (Manual) 13.2 H (1.8-7.7) th/mm3 Differential Comment . Toxic Vacuolation Present H (None) Platelet Estimate Low L (Normal) Platelet Morphology Normal (Normal) Ovalocytes 1+ H (None) Sodium 138 (136-145) meq/L Potassium 4.3 (3.5-5.1) meq/L Chloride 104 (98-107) meq/L Carbon Dioxide 23.8 (21.0-32.0) meq/L Anion Gap 10 (5-15) meq/L BUN 34 H (7-18) mg/dL Creatinine 6.48 H (0.60-1.30) mg/dL Estimated GFR 8 L (>89) mL/min Random Glucose 237 H (74-106) mg/dL Calcium 9.3 (8.5-10.1) mg/dL Total Bilirubin 1.4 H (0.2-1.0) mg/dL AST 20 (15-37) U/L ALT 22 (12-78) U/L Alkaline Phosphatase 209 H (45-117) U/L Total Protein 7.3 (6.4-8.2) g/dL Albumin 3.4 (3.4-5.0) g/dL Lipase 98 (73-393) U/L Imaging Data Radiologist's impression: Lumbar Spine CT 09/20/18 22:26 CONCLUSION: 1. Dextroscoliosis with multilevel degenerative disc disease most severe at L3- L4 and L4-L5 where there is moderate to severe spinal canal stenosis and neural foraminal narrowing. 2. There are bilateral pleural effusions, right larger than left. 3. Severe atherosclerotic disease. Chest X-Ray 09/20/18 22:52 CONCLUSION: 1. Chronic right pleural effusion and chronic airspace consolidation and/or atelectasis at the right lung base. 2. Stable cardiomegaly. Abdomen/Pelvis CT 09/21/18 01:32 CONCLUSION: 1. There is high density associated with the distal left ureter. Although nonspecific this could represent small stones in the distal ureter. There are no signs of obstruction. 2. Small volume of nonspecific free fluid in the pelvis. 3. Nonacute findings in the abdomen and pelvis include severe atherosclerotic disease, bilateral renal cysts, cholelithiasis, and bilateral nonobstructing renal stones. 4. There is a moderate to large right pleural effusion. Airspace consolidation versus atelectasis is present in the right lower lobe and there is high density material within the lung bases bilaterally. Discharge Plan Discharge Disposition Patient Disposition: 30 Still Patient Discharge Condition Condition: Stable Discharge Details Diagnosis: Renal calculus, Back pain Physicians Team ED Provider: Kamla Francisco Primary Care Provider: Armand Flynn Rxs /Orders / Referrals /Forms Prescriptions: No Action isosorbide mononitrate 30 mg Tablet Extended Release 24 Hr 30 mg PO DAILY RF: 0 carvedilol 3.125 mg Tablet 3.125 mg PO BID RF: 0 pravastatin 10 mg Tablet 10 mg PO DAILY RF: 0 tamsulosin 0.4 mg Capsule 0.4 mg PO DAILY RF: 0 ferrous sulfate [Iron (ferrous sulfate)] 325 mg (65 mg iron) Tablet 325 mg PO DAILY RF: 0 midodrine 10 mg Tablet 10 mg PO WITH DIALYSIS RF: 0 sevelamer carbonate [Renvela] 800 mg Tablet 800 mg PO TID RF: 0 apixaban [Eliquis] 2.5 mg Tablet 2.5 mg PO BID RF: 0 pantoprazole [Protonix] [address] For Susp In Packet 40 mg PO BID Qty: 30 RF: 0 trazodone 50 mg Tablet 25 mg PO DAILY RF: 0 aspirin [Aspir-81] 81 mg Tablet,Delayed Release (Dr/Ec) 81 mg PO DAILY RF: 0 zinc 50 mg Tablet 50 mg PO DAILY RF: 0 Status ED Status: With Doctor
[2018-09-20 22:49] LABS: Baso % (Auto) 0.3 % (0.0-2.0); Hematocrit 31.8 % (39.0-51.0); Hemoglobin 10.1 gm/dL (13.0-17.0); Lymph # (Auto) 0.5 th/mm3 (1.0-4.8); Lymph % (Auto) 3.3 % (9.0-44.0); Mean Corpuscular HGB Conc 31.9 % (32.0-36.0); Mean Corpuscular Hemoglobin 30.8 pg (27.0-34.0); Mean Corpuscular Volume 96.6 fL (80.0-100.0); Mean Platelet Volume 8.4 fL (7.0-11.0); Mono # (Auto) 0.7 th/mm3 (0.0-0.9); Mono % (Auto) 5.3 % (0.0-8.0); Neut # (Auto) 12.5 th/mm3 (1.8-7.7); Neut % (Auto) 91.1 % (16.0-70.0); Platelet Count 127 th/mm3 (150-450); Red Blood Count 3.29 mil/mm3 (4.50-5.90); Red Cell Distribution Width 16.6 % (11.6-17.2); White Blood Count 13.8 th/mm3 (4.0-11.0)
[2018-09-20 23:12] LABS: Albumin 3.4 g/dL (3.4-5.0); Anion Gap 10 meq/L (5-15); Aspartate Aminotransferase 20 U/L (15-37); Blood Urea Nitrogen 34 mg/dL (7-18); Calcium 9.3 mg/dL (8.5-10.1); Carbon Dioxide 23.8 meq/L (21.0-32.0); Chloride 104 meq/L (98-107); Glomerular Filtration Rate 8 mL/min (>89); Glucose,Random 237 mg/dL (74-106); Lipase 98 U/L (73-393); Potassium 4.3 meq/L (3.5-5.1); Sodium 138 meq/L (136-145)
[2018-09-20 23:15] LABS: Alanine Aminotransferase 22 U/L (12-78); Alkaline Phosphatase 209 U/L (45-117); Total Protein 7.3 g/dL (6.4-8.2)
[2018-09-20 23:16] LABS: Eosinophils 1 % (0-4); Lymphocytes 1 % (9-44); Metamyelocytes 4 % (0-1); Monocytes 2 % (0-8)
[2018-09-20 23:17] LABS: Ovalocytes 1+; Platelet Morphology Normal (Normal); Toxic Vacuolation Present
--- NOTE | 2018-09-20 23:48 | CT ---
EXAM DATE: 09/20/2018 11:30 PM EST AGE/SEX: 88 years / Male INDICATIONS: Lower back pain. CLINICAL DATA: This is the patient's initial encounter. Patient reports that signs and symptoms have been present for 1 day and indicates a pain score of 8/10. MEDICAL/SURGICAL HISTORY: Hypertension. Renal calculi. Benign Prostatic Hyperplasia. . Aortic trini ve replacement. RADIATION DOSE: 24.70 CTDI (mGy) COMPARISON: No prior exams available for comparison. TECHNIQUE: Contiguous axial images were acquired with a multirow detector CT scanner without contras t. Multiplanar reconstructions in the sagittal and coronal plane were also performed. Using automate d exposure control and adjustment of the mA and/or kV according to patient size, radiation dose was k ept as low as reasonably achievable to obtain optimal diagnostic quality images. DICOM format image data is available electronically for review and comparison. FINDINGS: Vertebrae: There is dextroscoliosis. No fracture or compression deformity is present. There is endpl ate irregularity on the left side of the L3-L4 endplates. Alignment: There is minimal retrolisthesis of L2 on L3. T12-L1: No disc herniation, canal stenosis, or neural foraminal stenosis. L1-L2: There is decreased disc height with vacuum disc. A diffuse disc bulge is present with mild fa cet hypertrophy. No significant spinal canal stenosis or neural foraminal narrowing is identified. L2-L3: There is decreased disc height with a diffuse disc bulge and mild facet hypertrophy. No defin ite spinal canal stenosis is present. There is mild right neural foraminal narrowing. L3-L4: There is decreased disc height at is more severe on the left side of the disc space with endp late sclerosis and irregularity on the left. Moderate to severe facet hypertrophy and ligamentum flav um hypertrophy is present and there is a diffuse disc bulge. These changes cause moderate to severe s raudel canal stenosis and moderate bilateral neural foraminal narrowing. L4-L5: There is mild decreased disc height with severe facet and ligamentum flavum hypertrophy and a diffuse disc bulge. These changes cause moderate to severe spinal canal stenosis and moderate to sev ere bilateral neural foraminal stenosis. L5-S1: Decreased disc height with severe facet hypertrophy, right greater than left. There is a mild diffuse disc bulge. No spinal canal stenosis is present. There is moderate bilateral neural foramina l narrowing. Other: There is a partially visualized right pleural effusion that appears large. A small left pleura l effusion is also present. Severe atherosclerotic disease is present throughout the abdominal aorta and iliac vessels. There are likely bilateral nonobstructing renal stones. A small volume of free flu id is present within the pelvis. CONCLUSION: 1. Dextroscoliosis with multilevel degenerative disc disease most severe at L3-L4 and L4-L5 where th ere is moderate to severe spinal canal stenosis and neural foraminal narrowing. 2. There are bilateral pleural effusions, right larger than left. 3. Severe atherosclerotic disease. Electronically signed by: Jermain Patel MD 09/20/2018 11:47 PM EST
--- NOTE | 2018-09-20 23:50 | XR ---
EXAM DATE: 09/20/2018 11:39 PM EST AGE/SEX: 88 years / Male INDICATIONS: Shortness of breath. Back pain. CLINICAL DATA: This is the patient's initial encounter. Patient reports that signs and symptoms have been present for 1 day and indicates a pain score of 8/10. MEDICAL/SURGICAL HISTORY: . Cardiovascular disease. CABG. Pacemaker. COMPARISON: [facility], CHEST 1V SINGLE AP, 08/01/2018. . FINDINGS: Single AP view of the chest demonstrate stable enlargement of the cardiac silhouette is patient post median sternotomy. Right chest wall cardiac pacing device/AICD is present with biventricular leads. T here is severe atherosclerotic disease of the aorta. EKG lines overlie the patient. There is chronic right pleural-based opacity and airspace consolidation in the right lower lung zone. Questionable int erstitial changes are present in the left lung base. A vascular stent overlies the left axillary mulu on. No pneumothorax is identified. Bones demonstrate no acute finding. CONCLUSION: 1. Chronic right pleural effusion and chronic airspace consolidation and/or atelectasis at the right lung base. 2. Stable cardiomegaly. Electronically signed by: Jermain Patel MD 09/20/2018 11:49 PM EST
--- NOTE | 2018-09-21 02:51 | CT ---
EXAM DATE: 09/21/2018 2:38 AM EST AGE/SEX: 88 years / Male INDICATIONS: Abdominal pain. CLINICAL DATA: This is the patient's initial encounter. Patient reports that signs and symptoms have been present for 1 day and indicates a pain score of 8/10. MEDICAL/SURGICAL HISTORY: Hypertension. BPH. GI Bleed. Dialysis. . Aortic valve replacement. RADIATION DOSE: 8.90 CTDI (mGy) COMPARISON: No prior exams available for comparison. TECHNIQUE: Multiple contiguous axial images were obtained through the abdomen. Images were obtained using multiple row detector helical technique. Using automated exposure control and adjustment of the mA and/or kV according to patient size, radiation dose was kept as low as reasonably achievable to o btain optimal diagnostic quality images. DICOM format image data is available electronically for rev iew and comparison. FINDINGS: Lower chest: There is consolidation and atelectasis in the right lung base. 3 motion artifact degrade s image quality. There is high density material in both lower lobes. A moderate to large right pleura l effusion is present. Cardiac pacing wires are visualized in the heart. Hepatobiliary: No focal liver lesion is identified. Hepatic vasculature demonstrates no abnormality. There is a high density stones within the gallbladder. Kidneys: No hydronephrosis or mass is appreciated. There is a 3.8 cm cyst within the right mid kidney and a 2.3 cm cyst in the left mid kidney. Nonobstructing stones are present in the left kidney measu ring up to 8 mm. There are nonobstructing left renal stones measuring up to 11 mm. There are areas of high density associated with the distal left ureter in the pelvis extending to the ureterovesical ju nction. No hydroureter is present. Adrenal Glands: Within normal limits. Spleen: Within normal limits. Pancreas: Within normal limits. Vascular: The aorta is nonaneurysmal. There is severe atherosclerotic disease. Bowel/Mesentery: The stomach and small bowel demonstrate no abnormality. No acute colon abnormality i s seen. There is no free intraperitoneal air. There is a small volume of free fluid in the pelvis.. T here is colonic diverticulosis. Abdominal Wall: No hernia is visualized. Retroperitoneum: No lymphadenopathy. Bladder: No wall thickening or mass. Reproductive: Within normal limits. Inguinal: There is a right inguinal hernia containing fat and fluid. Musculoskeletal: There are degenerative changes of the lumbar spine with dextroscoliosis. CONCLUSION: 1. There is high density associated with the distal left ureter. Although nonspecific this could rep resent small stones in the distal ureter. There are no signs of obstruction. 2. Small volume of nonspecific free fluid in the pelvis. 3. Nonacute findings in the abdomen and pelvis include severe atherosclerotic disease, bilateral francisco javier al cysts, cholelithiasis, and bilateral nonobstructing renal stones. 4. There is a moderate to large right pleural effusion. Airspace consolidation versus atelectasis is present in the right lower lobe and there is high density material within the lung bases bilaterally . Electronically signed by: Jermain Patel MD 09/21/2018 2:50 AM EST
[2018-09-21] MEDS ORDERED: Morphine Inj 4 MG/ML Vial IV.PUSH ONE (03:17)
[2018-09-21] MEDS ORDERED: Acetaminophen 325 MG Tablet PO PRN ×2 (04:29→09:25)
[2018-09-21] MEDS ORDERED: Bisacodyl 10 MG Supp RECTAL PRN (04:29)
--- NOTE | 2018-09-21 04:46 | P.HP ---
History of Present Illness Service: [facility] Primary Care Physician: Armand Flynn DO History of Present Illness: [id number] with a past medical history significant for end-stage renal disease on dialysis Monday, hypertension, hyperlipidemia, atrial fibrillation anticoagulated on Eliquis, diabetes mellitus and coronary artery disease presents to the emergency department for the evaluation of left- sided flank pain and back spasms. The patient noted that his symptoms started this morning when he woke up and they were exacerbated by movement and turning. He describes the pain is intermittent and colicky affecting the lower aspect of his back and left flank. Patient reports he occasionally makes urine, last urination yesterday morning. He denies any chest pain or shortness of breath. No fever/chills. No abdominal or pelvic pain. No nausea/vomiting/diarrhea. No focal neurologic deficits. Review of Systems All other systems reviewed negative except as stated in HPI PMFSH - History History Provided By: Patient - Medical History Medical History: Medical History (Last Reviewed 09/21/18 @ 04:35 by Hannah Mercedes MD) A-fib AV fistula BPH (benign prostatic hyperplasia) Dialysis patient ESRD (end stage renal disease) Hyperchloremia Hypertension - Surgical History Surgical History: Surgical History (Last Reviewed 09/21/18 @ 04:35 by Hannah Mercedes MD) Aortic valve replaced History of tonsillectomy Mitral valve replaced - Family History Family History: Family History (Last Reviewed 09/21/18 @ 04:35 by Hannah Mercedes MD) Other Family history normal - Tobacco History Second Hand Smoke Exposure: No Tobacco Use In Past 30 Days: No Smoking Status: Former smoker Tobacco Type: Cigarettes - Alcohol History How Often Do You Have a Drink Containing Alcohol: Never - Substance Use History Substance History: No History of Abuse - Travel History Recent Travel in the [place] Within the Last 8 Weeks: No Recent Travel Out of the Country Within the Last 8 Weeks: No - Immunization History Tetanus Immunization: Unsure Medications and Allergies Allergies Allergy/AdvReac Type Severity Reaction Status Date / Time simvastatin Allergy Severe WEAKNESS Verified 09/20/18 22:15 Home Medications Medication Instructions Recorded Confirmed Type apixaban [Eliquis] 2.5 mg PO BID 08/01/18 09/20/18 History carvedilol 3.125 mg PO BID 08/01/18 09/20/18 History ferrous sulfate [Iron (ferrous 325 mg PO DAILY 08/01/18 09/20/18 History sulfate)] isosorbide mononitrate 30 mg PO DAILY 08/01/18 09/20/18 History midodrine 10 mg PO WITH DIALYSIS 08/01/18 09/20/18 History pravastatin 10 mg PO DAILY 08/01/18 09/20/18 History sevelamer carbonate [Renvela] 800 mg PO TID 08/01/18 09/20/18 History tamsulosin 0.4 mg PO DAILY 08/01/18 09/20/18 History aspirin [Aspir-81] 81 mg PO DAILY 09/20/18 09/20/18 History trazodone 25 mg PO DAILY 09/20/18 09/20/18 History zinc 50 mg PO DAILY 09/20/18 09/20/18 History Exam Vital signs: Vital Signs 09/20/18 22:06 09/21/18 00:47 09/21/18 02:01 Temperature 98.1 F Pulse Rate 81 82 Respiratory Rate 26 H 16 16 Blood Pressure 121/59 L 109/56 L Pulse Oximetry 95 97 09/21/18 04:11 Temperature Pulse Rate 81 Respiratory Rate 18 Blood Pressure 108/54 L Pulse Oximetry 94 L Intake & Output 09/20/18 09/20/18 09/21/18 06:59 18:59 06:59 Weight 90.718 kg Narrative: Gen.: No acute distress Head: Normocephalic. Atraumatic. EENT: Pupils equal round and reactive to light. Nose without drainage. Airway intact. Throat without injection. Cardiovascular: Regular rate and irregularly irregular rhythm. No murmurs, rubs or gallops. Respiratory: Lungs clear to auscultation bilaterally. No wheezes or rhonchi. Abdomen: Soft, nontender, nondistended. No peritoneal signs. Musculoskeletal: No gross deformities. No edema. Left-sided back pain, tender to palpation. : Positive left-sided CVA tenderness Skin: No obvious rashes or erythema. Neuro: Sensory and motor grossly intact. Cranial nerves II through XII grossly intact. Results - Labs CBC & Chem 7: 09/20/18 22:35 09/20/18 22:35 Labs: Laboratory Results - last 24 hr 09/20/18 09/20/18 22:35 22:35 WBC 13.8 H RBC 3.29 L Hgb 10.1 L Hct 31.8 L MCV 96.6 MCH 30.8 MCHC 31.9 L RDW 16.6 Plt Count 127 L MPV 8.4 Prelim Diff (Auto) Slide review pending Neut % (Auto) 91.1 H Lymph % (Auto) 3.3 L [place] % (Auto) 5.3 Eos % (Auto) 0.0 Baso % (Auto) 0.3 Neut # (Auto) 12.5 H Lymph # (Auto) 0.5 L [place] # (Auto) 0.7 Eos # (Auto) 0.0 Baso # (Auto) 0.0 WBC Differential Manual diff final Seg Neuts % (Manual) 80 H Band Neuts % (Manual) 12 H Lymphocytes % (Manual) 1 L Monocytes % (Manual) 2 Eosinophils % (Manual) 1 Metamyelocytes % (Man) 4 H Abs Neuts (Manual) 13.2 H Differential Comment . Toxic Vacuolation Present H Platelet Estimate Low L Platelet Morphology Normal Ovalocytes 1+ H Sodium 138 Potassium 4.3 Chloride 104 Carbon Dioxide 23.8 Anion Gap 10 BUN 34 H Creatinine 6.48 H Estimated GFR 8 L Random Glucose 237 H Calcium 9.3 Total Bilirubin 1.4 H AST 20 ALT 22 Alkaline Phosphatase 209 H Total Protein 7.3 Albumin 3.4 Lipase 98 - Imaging Impressions Lumbar Spine CT 09/20/18 22:26 CONCLUSION: 1. Dextroscoliosis with multilevel degenerative disc disease most severe at L3- L4 and L4-L5 where there is moderate to severe spinal canal stenosis and neural foraminal narrowing. 2. There are bilateral pleural effusions, right larger than left. 3. Severe atherosclerotic disease. Chest X-Ray 09/20/18 22:52 CONCLUSION: 1. Chronic right pleural effusion and chronic airspace consolidation and/or atelectasis at the right lung base. 2. Stable cardiomegaly. Abdomen/Pelvis CT 09/21/18 01:32 CONCLUSION: 1. There is high density associated with the distal left ureter. Although nonspecific this could represent small stones in the distal ureter. There are no signs of obstruction. 2. Small volume of nonspecific free fluid in the pelvis. 3. Nonacute findings in the abdomen and pelvis include severe atherosclerotic disease, bilateral renal cysts, cholelithiasis, and bilateral nonobstructing renal stones. 4. There is a moderate to large right pleural effusion. Airspace consolidation versus atelectasis is present in the right lower lobe and there is high density material within the lung bases bilaterally. Caprini VTE Risk Assessment Caprini VTE Risk Assessment: Moderate/High Risk (score >= 2) Caprini Risk Assessment Model: Point Value = 1 Point Value = 2 Point Value = 3 Point Value = 5 Age 41-60 Minor surgery BMI > 25 kg/m2 Swollen legs Varicose veins or History of unexplained or recurrent spontaneous Oral contraceptives or hormone replacement Sepsis (< 1 month) Serious lung disease, including pneumonia (< 1 month) Abnormal pulmonary function Acute myocardial infarction Congestive heart failure (< 1 month) History of inflammatory bowel disease Medical patient at bed rest Age 61-74 Arthroscopic surgery Major open surgery (> 45 min) Laparoscopic surgery (> 45 min) Malignancy Confined to bed (> 72 hours) Immobilizing plaster cast Central venous access Age >= 75 History of VTE Family history of VTE Factor V Leiden Prothrombin [id number] Lupus anticoagulant Anticardiolipin antibodies Elevated serum homocysteine Heparin-induced thrombocytopenia Other congenital or acquired thrombophilia Stroke (< 1 month) Elective arthroplasty Hip, pelvis, or leg fracture Acute spinal cord injury (< 1 month) Prophylaxis Regimen: Total Risk Factor Score Risk Level Prophylaxis Regimen 0-1 Low Early ambulation 2 Moderate Order ONE of the following: *Sequential Compression Device (SCD) *Heparin 5000 units SQ BID 3-4 Higher Order ONE of the following medications: *Heparin 5000 units SQ TID *Enoxaparin/Lovenox 40 mg SQ daily (WT < 150 kg, CrCl > 30 mL/min) *Enoxaparin/Lovenox 30 mg SQ daily (WT < 150 kg, CrCl > 10-29 mL/min) *Enoxaparin/Lovenox 30 mg SQ BID (WT < 150 kg, CrCl > 30 mL/min) AND/OR *Sequential Compression Device (SCD) 5 or more Highest Order ONE of the following medications: *Heparin 5000 units SQ TID (Preferred with Epidurals) *Enoxaparin/Lovenox 40 mg SQ daily (WT < 150 kg, CrCl > 30 mL/min) *Enoxaparin/Lovenox 30 mg SQ daily (WT < 150 kg, CrCl > 10-29 mL/min) *Enoxaparin/Lovenox 30 mg SQ BID (WT < 150 kg, CrCl > 30 mL/min) AND *Sequential Compression Device (SCD) Assessment and Plan - Plan Assessment/plan: 1. Intractable back pain/Ureter stones CT of the abdomen/pelvis suggestive of left distal ureter stones without sign of obstruction Patient reports producing intermittent urine, straight cath ordered Leukocytosis at 13.8, concern for underlying urinary tract infection UA pending Morphine for pain control Ambulation limited secondary to pain Physical therapy consulted, once cleared anticipate transition to p.o. medication for pain control and discharge to home 2. 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 Atrial fibrillation Continue Eliquis and Coreg 4. Hypertension/hyperlipidemia/coronary artery disease Holding aspirin Continue all other home medications FEN N.p.o. Electrolytes: Monitor and replete prn Eliquis
[2018-09-21 04:55] LABS: Amorphous Sediment,Urine Rare /hpf; Bacteria,Urine Occasional /hpf; Bilirubin,Urine Negative (Negative); Clarity,Urine Cloudy (Clear); Color,Urine Amber (Yellw/Straw); Glucose,Urine (UA) Negative (Negative); Leukocyte Esterase,Urine Large (Negative); Mucus,Urine Few /lpf (Occasional); Nitrite,Urine Negative (Negative); Specific Gravity,Urine 1.012 (1.002-1.035); Squamous Epithelial Cell,Urine 1 /hpf (0-5)
[2018-09-21] MEDS: Isosorbide Mononitrate 30 MG ER 24HR Tablet (Imdur) PO SCH (06:12)
[2018-09-21] MEDS: Heparin - SQ 10,000 UNITS/ML Vial SQ SCH ×3 (06:12→21:23)
[2018-09-21] MEDS ORDERED: Sod Chloride 0.9% Inj 1,000 ML IV.CONT PRN (09:25)
[2018-09-21] MEDS ORDERED: Gelatin 12 MM/7 MM Topical Foam TOPICAL PRN (09:25)
[2018-09-21] MEDS ORDERED: Albumin Human 25% Inj 100 ML IV.SIG PRN (09:25)
[2018-09-21] MEDS ORDERED: Sod Chloride 0.9% Inj 1,000 ML OTHER PRN ×2 (09:25)
[2018-09-21] MEDS ORDERED: Heparin 10,000 UNITS/10 ML Vial (for IV use) OTHER PRN (09:25)
[2018-09-21] MEDS: traZODone 50 MG Tablet PO SCH (09:36)
[2018-09-21] MEDS: Ferrous Sulfate 325 MG Tablet PO SCH (09:38)
[2018-09-21] MEDS: Senna/Docusate Sodium 8.6/50 MG Tablet PO SCH ×2 (09:38→21:23)
[2018-09-21] MEDS ORDERED: Epoetin Alfa Inj 4,000 UNIT/ML Vial IV.PUSH PRN (09:45)
--- NOTE | 2018-09-21 11:18 | P.CONNP ---
History of Present Illness Service: Nephrology Consult date: 09/21/18 Requesting Physician: Stas Ritter Reason for Consult: End-stage renal disease for hemodialysis Primary Care Provider: Armand Flynn DO Chief Complaint: Back pain History of Present Illness: Patient is a 88-year-old male with a history of diabetes, hypertension, atrial fibrillation, AICD/pacemaker, ESRD on hemodialysis who was experiencing back pain and spasms which was quite severe and he could not go to his dialysis he came to the emergency and is now admitted to the hospital, he goes for hemodialysis on Monday, Monday and Monday, he has cardiomyopathy and underlying congestive heart failure. He gets short of breath on exertion he denies any chest pains. Review of Systems Constitutional: Reports body ache(s) Eyes: Denies blind spots, Denies blurry vision, Denies bulging eyes, Denies change in vision, Denies double vision, Denies discharge, Denies dry eyes, Denies floaters, Denies irritation, Denies itchy eyes, Denies loss of vision, Denies pain, Denies requires corrective lenses, Denies sensitivity to light, Denies other Ears, Nose, Mouth, and Throat: Reports abnormal hearing, Denies bleeding gums, Denies bad breath, Denies change in voice, Denies dental pain, Denies difficulty swallowing, Denies dizziness, Denies dry mouth, Denies ear discharge , Denies ear pain, Denies facial pain, Denies headache(s), Denies hearing loss, Denies hoarseness, Denies lip swelling, Denies nosebleed, Denies mouth lesions, Denies mouth pain, Denies nasal congestion, Denies nasal discharge, Denies nasal obstruction, Denies nasal trauma, Denies neck lump, Denies neck pain, Denies nose pain, Denies pain with swallowing, Denies poor balance, Denies post nasal drip, Denies ringing in the ears, Denies sinus pain, Denies sinus pressure , Denies sore throat, Denies throat swelling, Denies tongue swelling, Denies other Cardiovascular: Reports rapid, pounding, or irregular heartbeat, Reports shortness of breath with activity, Reports shortness of breath when lying down Respiratory: Reports shortness of breath Gastrointestinal: Reports constipation Genitourinary: Reports other (On hemodialysis) Musculoskeletal: Reports back pain, Reports body aches Skin/Breast: Reports unusual bruising Neurologic: Reports weakness Psychiatric: Reports other Endocrine: Denies cold intolerance, Denies excessive sweating, Denies flushing, Denies heat intolerance, Denies increased hunger, Denies increased thirst, Denies increased urination, Denies rapid, pounding, or irregular heartbeat, Denies other Hematologic/Lymphatic: Reports easy bruising Allergic/Immunologic: Denies GI upset with certain foods, Denies hives, Denies itchy eyes, Denies lip swelling, Denies seasonal runny nose, Denies throat swelling, Denies tongue swelling, Denies wheezing, Denies other PMFSH - History History Provided By: Patient - Medical History Medical History: Medical History (Last Reviewed 09/21/18 @ 11:13 by Janeen Millan MD) A-fib AV fistula BPH (benign prostatic hyperplasia) Dialysis patient ESRD (end stage renal disease) Hyperchloremia Hypertension - Surgical History Surgical History: Surgical History (Last Updated 09/21/18 @ 11:17 by Janeen Millan MD) AICD (automatic cardioverter/defibrillator) present Aortic valve replaced History of tonsillectomy Mitral valve replaced - Family History Family History: Family History (Last Reviewed 09/21/18 @ 11:13 by Janeen Millan MD) Other Family history normal - Social History I have reviewed the patient's Social History: Yes - Tobacco History Tobacco Use In Past 30 Days: No Smoking Status: Former smoker Tobacco Type: Cigarettes - Alcohol History How Often Do You Have a Drink Containing Alcohol: 2 to 4 times a month - Substance Use History Substance History: No History of Abuse - Travel History Recent Travel in the [place] Within the Last 8 Weeks: No Recent Travel Out of the Country Within the Last 8 Weeks: No - Immunization History Tetanus Immunization: Unsure Medications and Allergies Active Medications: Active Medications Acetaminophen (Tylenol) 650 mg PO Q4H PRN PRN Reason: Temp > 100.4 Acetaminophen (Tylenol) 650 mg PO UNSCH PRN PRN Reason: SEE LABEL COMMENTS Al Hydroxide/Mg Hydroxide (Milk Of Magntiffanie Liq) 30 ml PO Q12H PRN PRN Reason: Mild Constipation Aspirin (Ecotrin) 81 mg PO DAILY [facility] Last Admin: 09/21/18 09:46 Dose: 81 mg Bisacodyl (Dulcolax Supp) 10 mg RECTAL DAILY PRN PRN Reason: SEVERE CONSITIPATION Carvedilol (Coreg) 3.125 mg PO BID [facility] Last Admin: 09/21/18 09:36 Dose: 3.125 mg Clonidine HCl (Catapres) 0.1 mg PO UNSCH PRN PRN Reason: SEE LABEL COMMENTS Diphenhydramine HCl (Benadryl) 25 mg PO UNSCH PRN PRN Reason: SEE LABEL COMMENTS Epoetin Taiwo (Epogen Inj) 4,000 unit IV.PUSH UNSCH PRN PRN Reason: SEE LABEL COMMENTS Ferrous Sulfate (Ferosul) 325 mg PO DAILY [facility] Last Admin: 09/21/18 09:38 Dose: 325 mg Gelatin (Gelfoam 12 Mm/7 Mm Topical) 1 foam TOPICAL PRN PRN PRN Reason: help stop bleeding from site Heparin Sodium (Porcine) (Heparin Inj) 5,000 units SQ Q8H [facility] Last Admin: 09/21/18 06:12 Dose: 5,000 units Heparin Sodium (Porcine) (Heparin Inj) 8,000 units OTHER WITH DIALYSIS PRN PRN Reason: for machine prime Albumin Human (Flexbumin 25% Inj) 100 mls @ 60 mls/hr IV.SIG WITH DIALYSIS PRN PRN Reason: hypotension / volume replace Sodium Chloride (Ns Inj) 1,000 mls @ 0 mls/hr OTHER .Q0M PRN PRN Reason: for prime and rinse back Sodium Chloride (Ns Inj) 1,000 mls @ 200 mls/hr OTHER .Q5H PRN PRN Reason: for dialyzer flush PRN Sodium Chloride (Ns Inj) 1,000 mls @ 0 mls/hr IV.CONT .Q0M PRN PRN Reason: hypotension / volume replace Isosorbide Mononitrate (Imdur) 30 mg PO DAILY@0700 [facility] Last Admin: 09/21/18 06:12 Dose: 30 mg Lactulose (Lactulose Liq) 30 ml PO DAILY PRN PRN Reason: SEVERE CONSITIPATION Mannitol (Mannitol Inj) 12.5 gm IV.PUSH UNSCH PRN PRN Reason: hypotension / volume replace Midodrine (Proamatine) 10 mg PO WITH DIALYSIS PRN PRN Reason: ON DIALYSIS DAYS ONLY Morphine Sulfate (Morphine Inj) 4 mg IV.PUSH Q4H PRN PRN Reason: pain 6-10 Nitroglycerin (Nitrostat Sl) 0.4 mg SL Q5M PRN PRN Reason: CHEST PAIN Ondansetron HCl (Zofran Inj) 4 mg IV.PUSH Q6H PRN PRN Reason: NAUSEA OR VOMITING Ondansetron HCl (Zofran Inj) 4 mg IV.PUSH UNSCH PRN PRN Reason: NAUSEA OR VOMITING Pantoprazole Sodium (Protonix) 40 mg PO BID [facility] Last Admin: 09/21/18 09:39 Dose: 40 mg Pravastatin Sodium (Pravachol) 10 mg PO DAILY [facility] Last Admin: 09/21/18 09:39 Dose: 10 mg Senna/Docusate Sodium (Tammie-Colace) 1 tab PO BID [facility] Last Admin: 09/21/18 09:38 Dose: 1 tab Sennosides (Senokot) 17.2 mg PO Q12H PRN PRN Reason: Moderate Constipation Sevelamer Carbonate (Renvela) 800 mg PO TID [facility] Last Admin: 09/21/18 09:39 Dose: 800 mg Sodium Chloride (Ns Flush) 2 ml IV.FLUSH PRN PRN PRN Reason: FLUSH AFTER USING IV ACCESS Sodium Chloride (Ns Flush) 2 ml IV.FLUSH BID [facility] Last Admin: 09/21/18 09:38 Dose: 2 ml Sodium Chloride (Ns Flush) 5 ml IV.FLUSH PRN PRN PRN Reason: flush each lumen during HD Tamsulosin HCl (Flomax) 0.4 mg PO DAILY [facility] Last Admin: 09/21/18 09:38 Dose: 0.4 mg Trazodone HCl (Desyrel) 25 mg PO DAILY [facility] Last Admin: 09/21/18 09:36 Dose: 25 mg Allergies Allergy/AdvReac Type Severity Reaction Status Date / Time simvastatin Allergy Severe WEAKNESS Verified 09/20/18 22:15 Home Medications Medication Instructions Recorded Confirmed Type apixaban [Eliquis] 2.5 mg PO BID 08/01/18 09/20/18 History carvedilol 3.125 mg PO BID 08/01/18 09/20/18 History ferrous sulfate [Iron (ferrous 325 mg PO DAILY 08/01/18 09/20/18 History sulfate)] isosorbide mononitrate 30 mg PO DAILY 08/01/18 09/20/18 History midodrine 10 mg PO WITH DIALYSIS 08/01/18 09/20/18 History pravastatin 10 mg PO DAILY 08/01/18 09/20/18 History sevelamer carbonate [Renvela] 800 mg PO TID 08/01/18 09/20/18 History tamsulosin 0.4 mg PO DAILY 08/01/18 09/20/18 History aspirin [Aspir-81] 81 mg PO DAILY 09/20/18 09/20/18 History trazodone 25 mg PO DAILY 09/20/18 09/20/18 History zinc 50 mg PO DAILY 09/20/18 09/20/18 History Exam Vital signs: Vital Signs 09/20/18 22:06 09/21/18 00:47 09/21/18 02:01 Temperature 98.1 F Pulse Rate 81 82 Respiratory Rate 26 H 16 16 Blood Pressure 121/59 L 109/56 L Pulse Oximetry 95 97 09/21/18 04:11 09/21/18 05:11 09/21/18 05:41 Temperature Pulse Rate 81 Respiratory Rate 18 16 18 Blood Pressure 108/54 L Pulse Oximetry 94 L 09/21/18 05:51 Temperature 98.3 F Pulse Rate 82 Respiratory Rate 16 Blood Pressure 104/55 L Pulse Oximetry 94 L Intake & Output 09/20/18 09/21/18 09/21/18 18:59 06:59 18:59 Intake Total 240 / 240 Balance 240 / 240 Weight 90.718 kg Intake: Oral 240 / 240 Other: Date of Last Bowel Movement 09/20/18 Narrative: GENERAL: Well-nourished, well-developed patient. SKIN: Warm and dry. HEAD: Normocephalic. EYES: No scleral icterus. No injection or drainage. NECK: Supple, trachea midline. No JVD or lymphadenopathy. CARDIOVASCULAR: S1-S2 regular RESPIRATORY: Breath sounds diminished at bases. GASTROINTESTINAL: Abdomen soft, non-tender, nondistended. EXTREMITIES: Mild edema, back pain present NEUROLOGICAL: Awake, alert, and oriented x 3. Non-focal. Results - Lab Results 09/20/18 22:35 09/20/18 22:35 Most recent lab results Calcium 9.3 mg/dL (8.5-10.1) 09/20/18 22:35 Assessment and Plan - Assessment (1) ESRD (end stage renal disease) on dialysis Code(s): N18.6 - End stage renal disease; Z99.2 - Dependence on renal dialysis Status: Acute (2) Back pain Code(s): M54.9 - Dorsalgia, unspecified Status: Acute (3) Diabetes Code(s): E11.9 - Type 2 diabetes mellitus without complications Status: Acute (4) Hypertension Code(s): I10 - Essential (primary) hypertension Status: Acute - Plan Hemodialysis will be planned for today and continue with Monday, Monday and Monday, back pain being addressed Patient has pleural effusion Severe degenerative lumbar spine disease ct Abd/pelvis possible stone in ureter Continue supportive care 1520 pm seen during dialysis UF 2 L tolerating it (2) Back pain Qualifiers: Back pain location: low back pain Chronicity: acute Back pain laterality: left Sciatica presence: without sciatica Qualified Code(s): M54.5 - Low back pain
--- NOTE | 2018-09-21 11:22 | P.PN ---
Subjective Interval history: Follow up for flank pain, nephrolithiasis, pyelonephritis, sepsis. The patient reports continued bilateral flank pain. Denies fevers/chills. He reports feeling generally weak and tired. He did not get much sleep last night. Denies any chest pain, shortness of breath, nausea/vomiting, or abdominal pain. Physical Exam Vital signs: Vital Signs 09/20/18 22:06 09/21/18 00:47 09/21/18 02:01 Temperature 98.1 F Pulse Rate 81 82 Respiratory Rate 26 H 16 16 Blood Pressure 121/59 L 109/56 L Pulse Oximetry 95 97 09/21/18 04:11 09/21/18 05:11 09/21/18 05:41 Temperature Pulse Rate 81 Respiratory Rate 18 16 18 Blood Pressure 108/54 L Pulse Oximetry 94 L 09/21/18 05:51 Temperature 98.3 F Pulse Rate 82 Respiratory Rate 16 Blood Pressure 104/55 L Pulse Oximetry 94 L Intake & Output 09/20/18 09/21/18 09/21/18 18:59 06:59 18:59 Intake Total 240 / 240 Balance 240 / 240 Weight 90.718 kg Intake: Oral 240 / 240 Other: Date of Last Bowel Movement 09/20/18 Narrative: GENERAL: Well-nourished, well-developed patient in NAD. SKIN: Warm and dry. No rash. LUE AV fistula with +thrill. HEENT: Normocephalic. Atraumatic. Pupils equal and round. Mucous membranes pink and moist. CARDIOVASCULAR: Regular rate and rhythm. No murmur appreciated. RESPIRATORY: No accessory muscle use. Clear to auscultation. Breath sounds equal bilaterally. GASTROINTESTINAL: Abdomen soft, non-tender, nondistended. Normoactive bowel sounds x4. MUSCULOSKELETAL: No obvious deformities. 2+bilateral lower extremity edema. Bilateral CVA tenderness. NEUROLOGICAL: Awake and alert. No obvious cranial nerve deficits. Moving all extremities spontaneously. Normal speech. PSYCHIATRIC: Appropriate mood and affect; insight and judgment normal. - Urinary Catheter Management Straight Cath placed during this visit: yes Reason for continuing: Not indwelling catheter Insertion date: 09/21/18 Insertion time: 04:36 Results - Labs CBC & Chem 7: 09/20/18 22:35 09/20/18 22:35 Laboratory Results - last 24 hr 11/09/20/18 09/21/18 22:35 22:35 04:40 WBC 13.8 H RBC 3.29 L Hgb 10.1 L Hct 31.8 L MCV 96.6 MCH 30.8 MCHC 31.9 L RDW 16.6 Plt Count 127 L MPV 8.4 Prelim Diff (Auto) Slide review pending Neut % (Auto) 91.1 H Lymph % (Auto) 3.3 L [place] % (Auto) 5.3 Eos % (Auto) 0.0 Baso % (Auto) 0.3 Neut # (Auto) 12.5 H Lymph # (Auto) 0.5 L [place] # (Auto) 0.7 Eos # (Auto) 0.0 Baso # (Auto) 0.0 WBC Differential Manual diff final Seg Neuts % (Manual) 80 H Band Neuts % (Manual) 12 H Lymphocytes % (Manual) 1 L Monocytes % (Manual) 2 Eosinophils % (Manual) 1 Metamyelocytes % (Man) 4 H Abs Neuts (Manual) 13.2 H Differential Comment . Toxic Vacuolation Present H Platelet Estimate Low L Platelet Morphology Normal Ovalocytes 1+ H Sodium 138 Potassium 4.3 Chloride 104 Carbon Dioxide 23.8 Anion Gap 10 BUN 34 H Creatinine 6.48 H Estimated GFR 8 L Random Glucose 237 H Calcium 9.3 Total Bilirubin 1.4 H AST 20 ALT 22 Alkaline Phosphatase 209 H Total Protein 7.3 Albumin 3.4 Lipase 98 Urine Color Ricarda Urine Clarity Cloudy H Urine pH 7.0 Ur Specific [place] 1.012 Urine Protein 500 or greater Urine Glucose (UA) Negative Urine Ketones Negative Urine Occult Blood Large H Urine Nitrate Negative Urine Bilirubin Negative Urine Urobilinogen Less than 2 Ur Leukocyte Esterase Large H Urine RBC 82 H Urine WBC 13 H Ur Squamous Epith Cells 1 Amorphous Sediment Rare H Urine Bacteria Occasional H Urine Mucus Few H Micro UA Comment Cath-culture ind Ur Microscopic Review Not Reportable Urine Culture Comments Cath-cult indicated - Imaging Impressions Lumbar Spine CT 09/20/18 22:26 CONCLUSION: 1. Dextroscoliosis with multilevel degenerative disc disease most severe at L3- L4 and L4-L5 where there is moderate to severe spinal canal stenosis and neural foraminal narrowing. 2. There are bilateral pleural effusions, right larger than left. 3. Severe atherosclerotic disease. Chest X-Ray 09/20/18 22:52 CONCLUSION: 1. Chronic right pleural effusion and chronic airspace consolidation and/or atelectasis at the right lung base. 2. Stable cardiomegaly. Abdomen/Pelvis CT 09/21/18 01:32 CONCLUSION: 1. There is high density associated with the distal left ureter. Although nonspecific this could represent small stones in the distal ureter. There are no signs of obstruction. 2. Small volume of nonspecific free fluid in the pelvis. 3. Nonacute findings in the abdomen and pelvis include severe atherosclerotic disease, bilateral renal cysts, cholelithiasis, and bilateral nonobstructing renal stones. 4. There is a moderate to large right pleural effusion. Airspace consolidation versus atelectasis is present in the right lower lobe and there is high density material within the lung bases bilaterally. Assessment and Plan - Plan 88-year-old male with a past medical history significant for ESRD on HD MWF, HTN , HLD, afib on Eliquis, DM, CAD, presents to the emergency department for the evaluation of flank pain and back spasms. Sepsis with Acute Pyelonephritis and Nephrolithiasis: patient presented with intractable flank pain. -CT abdomen/pelvis suggestive of left distal ureter stones without sign of obstruction -UA positive for large leuks, WBCs, bacteria -Meets sepsis with leukocytosis WBC 13.8K, tachypnea RR 26, and source- cystitis/pyelonephritis -Start on antibiotics with IV Rocephin -Monitor urine culture -IV morphine prn pain Flank Pain/Back Spasms: acute, suspect secondary to above -pain control as needed -consult PT ESRD: on HD MWF. Chronic -Consult patient's corrections nurse Dr. Millan Atrial Fibrillation: Chronic -continue patient's Coreg and Eliquis -monitor on telemetry HTN/HLD/CAD: Chronic -continue home meds including aspirin, coreg, imdur, statin -monitor BP, adjust antihypertensives as needed DM: diabetes reported in EMR, however does not appear to be on medications -check HgbA1c -monitor Accu-checks and cover with SSI for now DVT Prophylaxis: Heparin sq
[2018-09-21] MEDS ORDERED: Dextrose 50% in Water 50 ML Vial IV.PUSH PRN (13:28)
[2018-09-21] MEDS: Insulin NovoLOG Aspart Correctional Sugar Inj SQ SCH ×2 (18:44→21:36)
[2018-09-22] MEDS: Heparin - SQ 10,000 UNITS/ML Vial SQ SCH ×3 (06:28→21:56)
[2018-09-22] MEDS: Isosorbide Mononitrate 30 MG ER 24HR Tablet (Imdur) PO SCH (06:29)
[2018-09-22 08:45] LABS: Baso % (Auto) 0.4 % (0.0-2.0); Eos % (Auto) 0.4 % (0.0-4.0); Hematocrit 31.3 % (39.0-51.0); Lymph # (Auto) 0.4 th/mm3 (1.0-4.8); Lymph % (Auto) 4.5 % (9.0-44.0); Mean Corpuscular Volume 97.1 fL (80.0-100.0); Mean Platelet Volume 9.4 fL (7.0-11.0); Mono # (Auto) 0.7 th/mm3 (0.0-0.9); Mono % (Auto) 7.4 % (0.0-8.0); Neut # (Auto) 8.6 th/mm3 (1.8-7.7); Neut % (Auto) 87.3 % (16.0-70.0); Platelet Count 100 th/mm3 (150-450); Red Blood Count 3.22 mil/mm3 (4.50-5.90); Red Cell Distribution Width 16.4 % (11.6-17.2); White Blood Count 9.8 th/mm3 (4.0-11.0)
[2018-09-22 09:09] LABS: Calcium 9.3 mg/dL (8.5-10.1); Potassium 4.5 meq/L (3.5-5.1)
[2018-09-22] MEDS: Insulin NovoLOG Aspart Correctional Sugar Inj SQ SCH ×4 (09:19→22:02)
[2018-09-22] MEDS: Ferrous Sulfate 325 MG Tablet PO SCH (10:18)
[2018-09-22] MEDS: traZODone 50 MG Tablet PO SCH (10:19)
[2018-09-22] MEDS: Senna/Docusate Sodium 8.6/50 MG Tablet PO SCH ×2 (10:20→21:56)
[2018-09-22] MEDS: Morphine Inj 4 MG/ML Vial IV.PUSH PRN (10:21)
--- NOTE | 2018-09-22 11:22 | P.PNIM ---
Subjective Interval history: Pt seen and examined for f/u back pain, urolithiasis, and UTI. Pt reports overall feeling better but continues to have bilateral lower back pain, R>L with right-sided radiation into his right grown. He does not urinate. Denies abdominal pain, nausea, vomiting, chills. States his pain is similar to kidney stone in the past. Does not feel ready to go secondary to his pain that is still requiring parenteral analgesics. Physical Exam Vital signs: Vital Signs 09/21/18 12:00 09/21/18 20:00 09/21/18 22:00 Temperature 97.6 F 98.0 F Pulse Rate 83 82 82 Respiratory Rate 18 16 16 Blood Pressure 132/64 91/50 L 95/49 L Pulse Oximetry 100 100 100 09/22/18 00:00 09/22/18 02:00 09/22/18 04:00 Temperature 98.7 F 97.7 F 96.8 F L Pulse Rate 83 83 82 Respiratory Rate 16 18 17 Blood Pressure 94/55 L 99/50 L 99/53 L Pulse Oximetry 93 L 100 96 09/22/18 07:58 09/22/18 08:36 09/22/18 09:00 Temperature 98.6 F Pulse Rate 95 H 90 Respiratory Rate 18 Blood Pressure 105/52 L Pulse Oximetry 94 L 100 Intake & Output 09/21/18 09/22/18 09/22/18 18:59 06:59 18:59 Intake Total 100 / 100 1200 / 1200 Output Total 1999 Balance -1900 / -1900 1200 / 1200 Weight 90.718 kg Intake: IV 100 / 100 Rocephin Inj 1,000 MG In NS Inj 100 / 100 100 ML @ 200 mls/hr IV.SIG Q24H MONIQUE Rx#:[id number] Oral 1200 / 1200 Output: Hemodialysis Amount 1999 Other: # Voids 0 Date of Last Bowel Movement 09/20/18 09/20/18 # Bowel Movements 0 Narrative: GENERAL: WN, WD elderly male sitting up on the side of bed in NAD. SKIN: Warm and dry. HEENT: AT/NC. Pupils equal and round. MMM. HEART: RRR no m/r/g. LUNGS: Breath sounds diminished at right mid- and lower lung lees. Left breath sounds clear, slightly diminished at the base. There is dullness to percussion around right lower lung lees. ABDOMEN: +BS, soft, NT, ND. BACK: Right lower back mildly tender to palpation. EXTREMITIES: 1-2+ pitting edema bilaterally, LLE>RLE. Brawny, chronic skin discoloration. NEURO: Awake and alert. - Urinary Catheter Management Straight Cath placed during this visit: yes Reason for continuing: Not indwelling catheter Insertion date: 09/21/18 Insertion time: 04:36 Results - Labs CBC & Chem 7: 09/22/18 07:00 09/22/18 07:00 Laboratory Results - last 24 hr 09/21/18 09/21/18 09/22/18 17:53 21:21 07:00 WBC 9.8 RBC 3.22 L Hgb 10.0 L Hct 31.3 L MCV 97.1 MCH 31.0 MCHC 32.0 RDW 16.4 Plt Count 100 L MPV 9.4 Neut % (Auto) 87.3 H Lymph % (Auto) 4.5 L [place] % (Auto) 7.4 Eos % (Auto) 0.4 Baso % (Auto) 0.4 Neut # (Auto) 8.6 H Lymph # (Auto) 0.4 L [place] # (Auto) 0.7 Eos # (Auto) 0.0 Baso # (Auto) 0.0 WBC Differential . Differential Comment Auto diff final Sodium Potassium Chloride Carbon Dioxide Anion Gap BUN Creatinine Estimated GFR POC Glucose 172 H 203 H Random Glucose Calcium 09/22/18 07:00 WBC RBC Hgb Hct MCV MCH MCHC RDW Plt Count MPV Neut % (Auto) Lymph % (Auto) [place] % (Auto) Eos % (Auto) Baso % (Auto) Neut # (Auto) Lymph # (Auto) [place] # (Auto) Eos # (Auto) Baso # (Auto) WBC Differential Differential Comment Sodium 134 L Potassium 4.5 Chloride 98 Carbon Dioxide 27.0 Anion Gap 9 BUN 32 H Creatinine 5.45 H Estimated GFR 10 L POC Glucose Random Glucose 137 H D Calcium 9.3 Assessment and Plan - Assessment (1) Urolithiasis Code(s): N20.9 - Urinary calculus, unspecified Status: Acute (2) Pleural effusion on right Code(s): J90 - Pleural effusion, not elsewhere classified Status: Acute (3) ESRD (end stage renal disease) on dialysis Code(s): N18.6 - End stage renal disease; Z99.2 - Dependence on renal dialysis Status: Acute (4) Back pain Code(s): M54.9 - Dorsalgia, unspecified Status: Acute - Plan 88-year-old male with ESRD on HD MWF, HLD, AFIB on Eliquis, DM, and CAD admitted for severe left flank pain with CT showing distal ureteral stone and U/A consistent with UTI. Met septic criteria on admission. 1. Sepsis - resolved - Met criteria on admission based on leukocytosis, tachypnea, and source of infection (UTI) - U/A with large leukocyte esterase, culture pending - No lactic acid done - Treat underlying infection as below 2. UTI - U/A with leukocyte esterase, culture pending - Continue Rocephin - White count normalized 3. Urolithiasis - CT A/P suggestive of left distal ureteral stone without signs of obstruction, also bilateral nonobstructing renal stones - Pain control 4. Right pleural effusion - Pt complaining of pain in right back which could be exacerbated by effusion - CT A/P showing [id number] right pleural effusion, also seen on CXR - IR consulted for US-guided thoracentesis with fluid studies - Patient does not urinate given ESRD therefore will hold off on diuretics - Supplemental O2 PRN 5. Back spasms - Possibly multifactorial in nature including renal colic, pleural effusion, and severe degenerative disc disease - CT L-spine with multilevel DDD most severe at L3-L4 and L4-L5 where there is moderate to severe spinal canal stenosis and neural foraminal narrowing - PT consulted, recommending rehab as well as OT eval - Pain control 6. ESRD on HD - Nephrology following - Continue HD 7. AFIB - Continue Coreg and Eliquis 8. Hypotension - BPs lower end but stable - Continue midodrine - On carvedilol for CAD but at a low dose - Continue to monitor 9. HLD - Continue home statin 10. CAD - Continue home ASA, Coreg, Imdur, and statin 11. 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
--- NOTE | 2018-09-22 12:33 | P.PNNP ---
Subjective Interval history: Patient is alert, has mild SOB, with nasal cannula, not eating well. Physical Exam Vital signs: Vital Signs 09/21/18 20:00 09/21/18 22:00 09/22/18 00:00 Temperature 97.6 F 98.0 F 98.7 F Pulse Rate 82 82 83 Respiratory Rate 16 16 16 Blood Pressure 91/50 L 95/49 L 94/55 L Pulse Oximetry 100 100 93 L 09/22/18 02:00 09/22/18 04:00 09/22/18 07:58 Temperature 97.7 F 96.8 F L 98.6 F Pulse Rate 83 82 95 H Respiratory Rate 18 17 18 Blood Pressure 99/50 L 99/53 L 105/52 L Pulse Oximetry 100 96 94 L 09/22/18 08:36 09/22/18 09:00 Temperature Pulse Rate 90 Respiratory Rate Blood Pressure Pulse Oximetry 100 Intake & Output 09/21/18 09/22/18 09/22/18 18:59 06:59 18:59 Intake Total 100 / 100 1200 / 1200 Output Total 1999 Balance -1900 / -1900 1200 / 1200 Weight 90.718 kg Intake: IV 100 / 100 Rocephin Inj 1,000 MG In NS Inj 100 / 100 100 ML @ 200 mls/hr IV.SIG Q24H MONIQUE Rx#:[id number] Oral 1200 / 1200 Output: Hemodialysis Amount 1999 Other: # Voids 0 Date of Last Bowel Movement 09/20/18 09/20/18 # Bowel Movements 0 Narrative: GENERAL: WN, WD elderly male sitting up on the side of bed in NAD. SKIN: Warm and dry. HEENT: AT/NC. Pupils equal and round. MMM. HEART: RRR no m/r/g. LUNGS: Breath sounds diminished at right mid- and lower lung lees. Left breath sounds clear, slightly diminished at the base. There is dullness to percussion around right lower lung lees. ABDOMEN: +BS, soft, NT, ND. BACK: Right lower back mildly tender to palpation. EXTREMITIES: 1-2+ pitting edema bilaterally, LLE>RLE. Brawny, chronic skin discoloration. NEURO: Awake and alert. - Urinary Catheter Management Straight Cath placed during this visit: yes Reason for continuing: Not indwelling catheter Insertion date: 09/21/18 Insertion time: 04:36 Assessment and Plan - Assessment (1) ESRD (end stage renal disease) on dialysis Code(s): N18.6 - End stage renal disease; Z99.2 - Dependence on renal dialysis Status: Acute (2) Back pain Code(s): M54.9 - Dorsalgia, unspecified Status: Acute Qualifiers: Back pain location: low back pain Chronicity: acute Back pain laterality : left Sciatica presence: without sciatica Qualified Code(s): M54.5 - Low back pain (3) Diabetes Code(s): E11.9 - Type 2 diabetes mellitus without complications Status: Acute (4) Hypertension Code(s): I10 - Essential (primary) hypertension Status: Acute - Plan Hemodialysis to continue Monday, Monday and Monday. Patient has pleural effusion Severe degenerative lumbar spine disease ct Abd/pelvis possible stone in ureter Continue supportive care. For Thoracentesis, Will try to remove more fluid with HD.
[2018-09-22 12:55] LABS: Hemoglobin A1c 6.3 % (4.3-6.0)
[2018-09-22 15:18] LABS: INR 1.2 Ratio; Prothrombin Time 12.2 sec (9.8-11.6)
--- NOTE | 2018-09-22 19:34 | XR ---
EXAM DATE: 09/22/2018 7:30 PM EST AGE/SEX: 88 years / Male INDICATIONS: Post right side thoracentesis. CLINICAL DATA: This is the patient's subsequent encounter. Patient reports that signs and symptoms h ave been present for 3 days and indicates a pain score of 0/10. MEDICAL/SURGICAL HISTORY: Hypertension. BPH. GI Bleed. Dialysis. . Aortic valve replacement COMPARISON: [facility], CHEST 1V SINGLE AP, 09/20/2018. . FINDINGS: No significant pneumothorax following right-sided thoracentesis with significant improved right-sided pleural effusion. Diffuse interstitial prominence with mild airspace disease in the left lower lung zone. Cardiac lead is enlarged with stable dual lead AICD device. The main of exam is unchanged. CONCLUSION: 1. Significantly improved right-sided pleural effusion following thoracentesis without pneumothorax. 2. Mild left lower lung zone airspace disease, presumably atelectasis. 3. Cardiomegaly with mild positive fluid balance. Electronically signed by: Wiliam Thompson MD 09/22/2018 7:32 PM EST
[2018-09-22 21:44] LABS: Total Protein,Pleural Fluid 3.5 gm/dL
[2018-09-22 22:06] LABS: Lymphocytes,Pleural Fluid 48 %; Monocytes,Pleural Fluid 7 %; Neutrophils,Pleural Fluid 45 %; RBC,Pleural Fluid 204 /mm3 (0-0)
[2018-09-23] MEDS: Heparin - SQ 10,000 UNITS/ML Vial SQ SCH ×3 (05:57→21:45)
[2018-09-23] MEDS: Isosorbide Mononitrate 30 MG ER 24HR Tablet (Imdur) PO SCH (05:59)
[2018-09-23 08:05] LABS: Hematocrit 29.6 % (39.0-51.0); Hemoglobin 9.7 gm/dL (13.0-17.0); Mean Corpuscular HGB Conc 32.9 % (32.0-36.0); Mean Corpuscular Hemoglobin 31.1 pg (27.0-34.0); Mean Corpuscular Volume 94.4 fL (80.0-100.0); Mean Platelet Volume 9.3 fL (7.0-11.0); Platelet Count 101 th/mm3 (150-450); Red Blood Count 3.13 mil/mm3 (4.50-5.90); Red Cell Distribution Width 16.1 % (11.6-17.2); White Blood Count 7.7 th/mm3 (4.0-11.0)
[2018-09-23 08:35] LABS: Calcium 8.1 mg/dL (8.5-10.1); Carbon Dioxide 26.3 meq/L (21.0-32.0); Potassium 4.9 meq/L (3.5-5.1)
[2018-09-23 09:31] LABS: Albumin 2.7 g/dL (3.4-5.0)
[2018-09-23] MEDS: traZODone 50 MG Tablet PO SCH (09:56)
[2018-09-23] MEDS: Insulin NovoLOG Aspart Correctional Sugar Inj SQ SCH ×4 (09:56→21:46)
[2018-09-23] MEDS: Senna/Docusate Sodium 8.6/50 MG Tablet PO SCH ×2 (09:57→21:45)
[2018-09-23] MEDS: Ferrous Sulfate 325 MG Tablet PO SCH (09:57)
--- NOTE | 2018-09-23 12:46 | P.PNNP ---
Subjective Interval history: Patient started eating some, with nasal cannula, breathing is improving. Physical Exam Vital signs: Vital Signs 09/22/18 14:54 09/22/18 16:00 09/22/18 20:00 Temperature 98.7 F 98.6 F 98.0 F Pulse Rate 82 96 H 66 Respiratory Rate 18 18 18 Blood Pressure 97/49 L 105/52 L 101/53 L Pulse Oximetry 81 L 94 L 96 09/22/18 22:55 09/23/18 00:00 09/23/18 04:00 Temperature 98.2 F 98.1 F Pulse Rate 82 80 Respiratory Rate 18 18 Blood Pressure 92/60 L 98/66 L Pulse Oximetry 97 92 L 93 L 09/23/18 07:33 09/23/18 12:00 Temperature 98.1 F 99.9 F H Pulse Rate 83 82 Respiratory Rate 16 18 Blood Pressure 108/55 L 104/53 L Pulse Oximetry 93 L 93 L Intake & Output 09/22/18 09/23/18 09/23/18 18:59 06:59 18:59 Intake Total 560 / 560 Output Total 1999 Balance -1440 / -1440 Weight 91 kg Intake: IV 100 / 100 Rocephin Inj 1,000 MG In NS Inj 100 / 100 100 ML @ 200 mls/hr IV.SIG Q24H MONIQUE Rx#:[id number] Oral 460 / 460 Output: Hemodialysis Amount 1999 Other: # Voids 0 0 Date of Last Bowel Movement 09/20/18 09/20/18 09/20/18 # Bowel Movements 0 Narrative: GENERAL: WN, WD elderly male sitting up on the side of bed in [facility]. SKIN: Warm and dry. HEENT: AT/NC. Pupils equal and round. MMM. HEART: RRR no m/r/g. LUNGS: Breath sounds diminished at right mid- and lower lung lees. Left breath sounds clear, slightly diminished at the base. There is dullness to percussion around right lower lung lees. ABDOMEN: +BS, soft, NT, ND. BACK: Right lower back mildly tender to palpation. EXTREMITIES: 1-2+ pitting edema bilaterally, LLE>RLE. Brawny, chronic skin discoloration. NEURO: Awake and alert. - Urinary Catheter Management Straight Cath placed during this visit: yes Reason for continuing: Not indwelling catheter Insertion date: 09/21/18 Insertion time: 04:36 Assessment and Plan - Assessment (1) ESRD (end stage renal disease) on dialysis Code(s): N18.6 - End stage renal disease; Z99.2 - Dependence on renal dialysis Status: Acute (2) Back pain Code(s): M54.9 - Dorsalgia, unspecified Status: Acute Qualifiers: Back pain location: low back pain Chronicity: acute Back pain laterality : left Sciatica presence: without sciatica Qualified Code(s): M54.5 - Low back pain (3) Diabetes Code(s): E11.9 - Type 2 diabetes mellitus without complications Status: Acute (4) Hypertension Code(s): I10 - Essential (primary) hypertension Status: Acute - Plan Hemodialysis to continue Monday, Monday and Monday. Patient has pleural effusion Severe degenerative lumbar spine disease ct Abd/pelvis possible stone in ureter Continue supportive care. Post Thoracentesis, done yesterday. Will try to remove more fluid with HD. Hgb. is 9.7, on Epogen with HD. HD again in AM.
--- NOTE | 2018-09-23 14:57 | P.PNIM ---
Subjective Interval history: Late-entry note, patient seen this morning. Reports improved pain in his back. Had uncomplicated thoracentesis done yesterday. States his pain is much better but now mostly in his bilateral inguinal regions. Denies CP, SOB, abdominal pain , N/V. Tolerating PO. Physical Exam Vital signs: Vital Signs 09/22/18 14:54 09/22/18 16:00 09/22/18 20:00 Temperature 98.7 F 98.6 F 98.0 F Pulse Rate 82 96 H 66 Respiratory Rate 18 18 18 Blood Pressure 97/49 L 105/52 L 101/53 L Pulse Oximetry 81 L 94 L 96 09/22/18 22:55 09/23/18 00:00 09/23/18 04:00 Temperature 98.2 F 98.1 F Pulse Rate 82 80 Respiratory Rate 18 18 Blood Pressure 92/60 L 98/66 L Pulse Oximetry 97 92 L 93 L 09/23/18 07:33 09/23/18 12:00 Temperature 98.1 F 99.9 F H Pulse Rate 83 82 Respiratory Rate 16 18 Blood Pressure 108/55 L 104/53 L Pulse Oximetry 93 L 93 L Intake & Output 09/22/18 09/23/18 09/23/18 18:59 06:59 18:59 Intake Total 560 / 560 Output Total 1999 Balance -1440 / -1440 Weight 91 kg Intake: IV 100 / 100 Rocephin Inj 1,000 MG In NS Inj 100 / 100 100 ML @ 200 mls/hr IV.SIG Q24H [facility] Rx#:[id number] Oral 460 / 460 Output: Hemodialysis Amount 1999 Other: # Voids 0 0 Date of Last Bowel Movement 09/20/18 09/20/18 09/20/18 # Bowel Movements 0 Narrative: GENERAL: WN, WD elderly male sitting up in bed eating breakfast in NAD. SKIN: Warm and dry. HEENT: AT/NC. Pupils equal and round. MMM. HEART: RRR no m/r/g. LUNGS: Improved aeration of the lungs since thoracentesis. No appreciable crackles or wheezing. ABDOMEN: +BS, soft, NT, ND. EXTREMITIES: 1-2+ pitting edema bilaterally, LLE>RLE. Brawny, chronic skin discoloration. NEURO: Awake and alert. - Urinary Catheter Management Straight Cath placed during this visit: yes Reason for continuing: Not indwelling catheter Insertion date: 09/21/18 Insertion time: 04:36 Results - Labs CBC & Chem 7: 09/23/18 07:45 09/23/18 07:45 Laboratory Results - last 24 hr 09/22/18 09/22/18 09/22/18 14:43 16:50 16:50 WBC RBC Hgb Hct MCV MCH MCHC RDW Plt Count MPV PT 12.2 H INR 1.2 Sodium Potassium Chloride Carbon Dioxide Anion Gap BUN Creatinine Estimated GFR POC Glucose Random Glucose Calcium Lactate Dehydrogenase Albumin Pleural RBC 204 H Pleural Nuc Cells 80 H Pleural Neutrophils 45 Pleural Lymphocytes 48 Pleural Monocytes 7 Pleural Fluid Comment Pleural Total Protein 3.5 Pleural Albumin 2.0 Pleural LDH 89 09/22/18 09/22/18 09/23/18 18:18 22:00 07:45 WBC 7.7 RBC 3.13 L Hgb 9.7 L Hct 29.6 L MCV 94.4 MCH 31.1 MCHC 32.9 RDW 16.1 Plt Count 101 L MPV 9.3 PT INR Sodium Potassium Chloride Carbon Dioxide Anion Gap BUN Creatinine Estimated GFR POC Glucose 225 H 171 H Random Glucose Calcium Lactate Dehydrogenase Albumin Pleural RBC Pleural Nuc Cells Pleural Neutrophils Pleural Lymphocytes Pleural Monocytes Pleural Fluid Comment Pleural Total Protein Pleural Albumin Pleural LDH 09/23/18 09/23/18 09/23/18 07:45 07:45 09:08 WBC RBC Hgb Hct MCV MCH MCHC RDW Plt Count MPV PT INR Sodium 131 L Potassium 4.9 Chloride 95 L Carbon Dioxide 26.3 Anion Gap 10 BUN 49 H Creatinine 6.88 H Estimated GFR 8 L POC Glucose 202 H Random Glucose 184 H Calcium 8.1 L D Lactate Dehydrogenase 215 Albumin 2.7 L Pleural RBC Pleural Nuc Cells Pleural Neutrophils Pleural Lymphocytes Pleural Monocytes Pleural Fluid Comment Pleural Total Protein Pleural Albumin Pleural LDH 09/23/18 13:24 WBC RBC Hgb Hct MCV MCH MCHC RDW Plt Count MPV PT INR Sodium Potassium Chloride Carbon Dioxide Anion Gap BUN Creatinine Estimated GFR POC Glucose 230 H Random Glucose Calcium Lactate Dehydrogenase Albumin Pleural RBC Pleural Nuc Cells Pleural Neutrophils Pleural Lymphocytes Pleural Monocytes Pleural Fluid Comment Pleural Total Protein Pleural Albumin Pleural LDH Microbiology 09/22/18 16:50 Fluid - Pleural fluid Gram Stain - Final 09/22/18 16:50 Fluid - Pleural fluid Body Fluid Culture - Preliminary No growth in 24 hours 09/21/18 04:40 Catheterized Urine Urine Culture - Final No growth in 48 hours - Imaging Impressions Chest X-Ray 09/22/18 00:00 CONCLUSION: 1. Significantly improved right-sided pleural effusion following thoracentesis without pneumothorax. 2. Mild left lower lung zone airspace disease, presumably atelectasis. 3. Cardiomegaly with mild positive fluid balance. Assessment and Plan - Assessment (1) Urolithiasis Code(s): N20.9 - Urinary calculus, unspecified Status: Acute (2) Pleural effusion on right Code(s): J90 - Pleural effusion, not elsewhere classified Status: Acute (3) ESRD (end stage renal disease) on dialysis Code(s): N18.6 - End stage renal disease; Z99.2 - Dependence on renal dialysis Status: Acute (4) Back pain Code(s): M54.9 - Dorsalgia, unspecified Status: Acute - Plan 88-year-old male with ESRD on HD MWF, HLD, AFIB on Eliquis, DM, and CAD admitted for severe left flank pain with CT showing distal ureteral stone and U/A consistent with UTI. Met septic criteria on admission. 1. Sepsis - resolved - Met criteria on admission based on leukocytosis, tachypnea, and source of infection (possible UTI) - U/A with large leukocyte esterase, culture negative at 48 hours - No lactic acid done - Treat underlying infection as below 2. UTI - U/A with leukocyte esterase - Urine culture no growth x 48 hours - Has received three doses of Rocephin - White count normalized 3. Urolithiasis - CT A/P suggestive of left distal ureteral stone without signs of obstruction, also bilateral nonobstructing renal stones - Pain control 4. Right pleural effusion with questionable underlying PNA vs. atelectasis - Pt complaining of pain in right back which could be exacerbated by effusion, pain improved following thoracentesis - CT A/P showing [id number] right pleural effusion, also seen on CXR - IR consulted and patient underwent US-guided thoracentesis yesterday - Fluid studies with transudative picture - Pleural fluid culture NG x 24 hours - Cytology ordered - Patient does not urinate given ESRD therefore will hold off on diuretics - Supplemental O2 PRN - On Rocephin which would cover PNA 5. Back spasms - improving - Possibly multifactorial in nature including renal colic, pleural effusion, and severe degenerative disc disease - CT L-spine with multilevel DDD most severe at L3-L4 and L4-L5 where there is moderate to severe spinal canal stenosis and neural foraminal narrowing - PT consulted, recommending rehab as well as OT eval - Pain control 6. ESRD on HD - Nephrology following - Continue HD 7. AFIB - Continue Coreg and Eliquis 8. Hypotension - BPs lower end but stable - Continue midodrine - On carvedilol for CAD but at a low dose - Continue to monitor 9. HLD - Continue home statin 10. CAD - Continue home ASA, Coreg, Imdur, and statin 11. DM - Not on any medications at home - A1c 6.3, can be counseled on dietary changes - SSI with Accu-Cheks per protocol for now DVT Prophylaxis: Heparin sq Discharge Planning: Anticipate D/C tomorrow (4) Back pain Qualifiers: Back pain location: low back pain Chronicity: acute Back pain laterality: left Sciatica presence: without sciatica Qualified Code(s): M54.5 - Low back pain
--- NOTE | 2018-09-23 22:53 | US ---
EXAM DATE: 09/22/2018 8:24 PM EST AGE/SEX: 88 years / Male INDICATIONS: Pleural effusion. CLINICAL DATA: This is the patient's initial encounter. Patient reports that signs and symptoms have been present for 2 days and indicates a pain score of 0/10. MEDICAL/SURGICAL HISTORY: Hypertension. AV fistula. BPH. Renal disease. Tonsillectomy. Mitral valve replaced. COMPARISON: [facility] – [place], CHEST EXPIRATION ONLY, 09/22/2018. . FLUID: Total volume of 1,750 cc of cloudy, yellow fluid was removed. Fluid was sent to lab for ordered studies. . . TECHNIQUE: Ultrasound guidance for thoracentesis. Thoracentesis. The risks, benefits, and alternatives to ultrasound guided thoracentesis were explained to the patien t in lay simple terms, including the risk of bleeding and infection. Written and verbal informed con sent was obtained. Appropriate area for right thoracentesis was marked under ultrasound guidance with the patient in the upright position. Overlying skin was prepped and draped in the usual sterile fashion and with local anesthetic, a dermatotomy was made with an 11 blade scalpel. A 6 Maltese thoracentesis catheter was placed in the pleural space and fluid was removed. Catheter was then removed and a sterile dressing applied. There were no immediate complications. The patient tolerated the procedure well and the lef t the ultrasound suite in stable condition. Chest radiograph is to be obtained. FINDINGS: Adequate fluid for thoracentesis. CONCLUSION: 1. Uncomplicated right thoracentesis. Electronically signed by: Sage Correia MD 09/23/2018 10:52 PM EST
[2018-09-24 03:53] LABS: Baso % (Auto) 0.5 % (0.0-2.0); Eos # (Auto) 0.1 th/mm3 (0.0-0.4); Eos % (Auto) 0.8 % (0.0-4.0); Hematocrit 30.1 % (39.0-51.0); Hemoglobin 9.8 gm/dL (13.0-17.0); Lymph # (Auto) 0.3 th/mm3 (1.0-4.8); Lymph % (Auto) 4.2 % (9.0-44.0); Mean Corpuscular HGB Conc 32.6 % (32.0-36.0); Mean Corpuscular Hemoglobin 30.8 pg (27.0-34.0); Mean Corpuscular Volume 94.4 fL (80.0-100.0); Mean Platelet Volume 9.4 fL (7.0-11.0); Mono # (Auto) 0.9 th/mm3 (0.0-0.9); Mono % (Auto) 10.8 % (0.0-8.0); Neut # (Auto) 6.8 th/mm3 (1.8-7.7); Neut % (Auto) 83.7 % (16.0-70.0); Platelet Count 95 th/mm3 (150-450); Red Blood Count 3.19 mil/mm3 (4.50-5.90); White Blood Count 8.1 th/mm3 (4.0-11.0)
[2018-09-24 04:16] LABS: Calcium 8.2 mg/dL (8.5-10.1); Carbon Dioxide 25.1 meq/L (21.0-32.0); Potassium 5.1 meq/L (3.5-5.1)
[2018-09-24] MEDS: Isosorbide Mononitrate 30 MG ER 24HR Tablet (Imdur) PO SCH (06:34)
[2018-09-24] MEDS: Heparin - SQ 10,000 UNITS/ML Vial SQ SCH ×3 (06:34→21:20)
[2018-09-24 06:40] LABS: Eosinophils 1 % (0-4); Lymphocytes 3 % (9-44); Monocytes 8 % (0-8); Platelet Morphology Normal (Normal)
[2018-09-24 06:41] LABS: Dohle Bodies Present; Ovalocytes 1+
--- NOTE | 2018-09-24 08:41 | XR ---
EXAM DATE: 09/24/2018 8:37 AM EST AGE/SEX: 88 years / Male INDICATIONS: Shortness of breath. CLINICAL DATA: This is the patient's subsequent encounter. Patient reports that signs and symptoms h ave been present for 3 days and indicates a pain score of 0/10. MEDICAL/SURGICAL HISTORY: . Cardiovascular disease. . CABG. Pacemaker. COMPARISON: [facility] – [place], CHEST EXPIRATION ONLY, 09/22/2018. . FINDINGS: Portable AP view of the chest demonstrates a normal size cardiac silhouette with calcification of the aorta this patient post median sternotomy. Right chest wall cardiac pacing device/AICD is present wi th biventricular leads. Ringlike density overlying the heart suggest prior valve replacement. Lungs a re underinflated with bibasilar airspace opacity. No definite pleural effusion or pneumothorax is lindsay ntified. Bones demonstrate no acute finding. CONCLUSION: Stable bibasilar airspace opacity. This could represent atelectasis or airspace consolidation. Electronically signed by: Jermain Patel MD 09/24/2018 8:39 AM EST
--- NOTE | 2018-09-24 09:04 | P.PNIM ---
Subjective Interval history: Pt seen and examined this morning. Complains of pain in his neck and coughing. Does not endorse any back pain today. Tolerating PO. Reports he is not feeling well today. Denies CP, SOB, or abdominal pain. When asked about his back he states it is terrible but he does not appear to be in the pain he was days ago with his back. Per RN, O2 sat went down to 85% on room air this morning, up to 96% on 2L. He was noted to be lethargic this morning and was difficult to awaken. Temp was 99.5 and BP 98/51. Physical Exam Vital signs: Vital Signs 09/23/18 12:00 09/23/18 16:00 09/23/18 19:34 Temperature 99.9 F H 98.5 F 98.4 F Pulse Rate 82 82 80 Respiratory Rate 18 18 18 Blood Pressure 104/53 L 104/51 L 102/53 L Pulse Oximetry 93 L 94 L 92 L 09/23/18 20:00 09/24/18 00:00 09/24/18 04:00 Temperature 98.6 F 98.4 F Pulse Rate 87 83 Respiratory Rate 15 16 16 Blood Pressure 112/54 L 96/53 L Pulse Oximetry 94 L 93 L 09/24/18 07:52 Temperature 99.5 F Pulse Rate 82 Respiratory Rate 16 Blood Pressure 98/51 L Pulse Oximetry 96 Intake & Output 09/23/18 09/24/18 09/24/18 18:59 06:59 18:59 Intake Total 100 / 100 720 / 720 Output Total 0 / 0 Balance 100 / 100 720 / 720 Intake: IV 100 / 100 Rocephin Inj 1,000 MG In NS Inj 100 / 100 100 ML @ 200 mls/hr IV.SIG Q24H [facility] Rx#:[id number] Oral 720 / 720 Output: Urine 0 / 0 Other: Date of Last Bowel Movement 09/20/18 09/22/18 Narrative: GENERAL: WN, WD elderly male sitting up in bed eating breakfast in NAD. SKIN: Warm and dry. HEENT: AT/NC. Pupils equal and round. MMM. HEART: RRR no m/r/g. LUNGS: Improved aeration of the lungs since thoracentesis but he does have bibasilar crackles. ABDOMEN: +BS, soft, NT, ND. EXTREMITIES: 2+ pitting edema bilaterally, LLE>RLE. Brawny, chronic skin discoloration. NEURO: Awake and alert. - Urinary Catheter Management Straight Cath placed during this visit: yes Reason for continuing: Not indwelling catheter Insertion date: 09/21/18 Insertion time: 04:36 Results - Labs CBC & Chem 7: 09/24/18 02:55 09/24/18 02:55 Laboratory Results - last 24 hr 09/23/18 09/23/18 09/23/18 07:45 09:08 13:24 WBC RBC Hgb Hct MCV MCH MCHC RDW Plt Count MPV Prelim Diff (Auto) Neut % (Auto) Lymph % (Auto) [place] % (Auto) Eos % (Auto) Baso % (Auto) Neut # (Auto) Lymph # (Auto) [place] # (Auto) Eos # (Auto) Baso # (Auto) WBC Differential Seg Neuts % (Manual) Band Neuts % (Manual) Lymphocytes % (Manual) Monocytes % (Manual) Eosinophils % (Manual) Abs Neuts (Manual) Differential Comment Dohle Bodies Platelet Estimate Platelet Morphology Ovalocytes Sodium Potassium Chloride Carbon Dioxide Anion Gap BUN Creatinine Estimated GFR POC Glucose 202 H 230 H Random Glucose Calcium Lactate Dehydrogenase 215 Albumin 2.7 L 09/23/18 09/23/18 09/24/18 18:14 21:40 02:55 WBC 8.1 RBC 3.19 L Hgb 9.8 L Hct 30.1 L MCV 94.4 MCH 30.8 MCHC 32.6 RDW 16.0 Plt Count 95 L MPV 9.4 Prelim Diff (Auto) Slide review pending Neut % (Auto) 83.7 H Lymph % (Auto) 4.2 L [place] % (Auto) 10.8 H Eos % (Auto) 0.8 Baso % (Auto) 0.5 Neut # (Auto) 6.8 Lymph # (Auto) 0.3 L [place] # (Auto) 0.9 Eos # (Auto) 0.1 Baso # (Auto) 0.0 WBC Differential Manual diff final Seg Neuts % (Manual) 83 H Band Neuts % (Manual) 5 Lymphocytes % (Manual) 3 L Monocytes % (Manual) 8 Eosinophils % (Manual) 1 Abs Neuts (Manual) 7.1 Differential Comment . Dohle Bodies Present H Platelet Estimate Low L Platelet Morphology Normal Ovalocytes 1+ H Sodium Potassium Chloride Carbon Dioxide Anion Gap BUN Creatinine Estimated GFR POC Glucose 183 H 186 H Random Glucose Calcium Lactate Dehydrogenase Albumin 09/24/18 02:55 WBC RBC Hgb Hct MCV MCH MCHC RDW Plt Count MPV Prelim Diff (Auto) Neut % (Auto) Lymph % (Auto) [place] % (Auto) Eos % (Auto) Baso % (Auto) Neut # (Auto) Lymph # (Auto) [place] # (Auto) Eos # (Auto) Baso # (Auto) WBC Differential Seg Neuts % (Manual) Band Neuts % (Manual) Lymphocytes % (Manual) Monocytes % (Manual) Eosinophils % (Manual) Abs Neuts (Manual) Differential Comment Dohle Bodies Platelet Estimate Platelet Morphology Ovalocytes Sodium 129 L Potassium 5.1 Chloride 93 L Carbon Dioxide 25.1 Anion Gap 11 BUN 60 H Creatinine 7.77 H Estimated GFR 7 L POC Glucose Random Glucose 150 H Calcium 8.2 L Lactate Dehydrogenase Albumin Microbiology 09/22/18 16:50 Fluid - Pleural fluid Gram Stain - Final 09/22/18 16:50 Fluid - Pleural fluid Body Fluid Culture - Preliminary No growth in 24 hours 09/21/18 04:40 Catheterized Urine Urine Culture - Final No growth in 48 hours - Imaging Impressions Thoracentesis Ultrasound 09/22/18 00:00 CONCLUSION: 1. Uncomplicated right thoracentesis. Chest X-Ray 09/24/18 00:00 CONCLUSION: Stable bibasilar airspace opacity. This could represent atelectasis or airspace consolidation. Assessment and Plan - Assessment (1) Urolithiasis Code(s): N20.9 - Urinary calculus, unspecified Status: Acute (2) Pleural effusion on right Code(s): J90 - Pleural effusion, not elsewhere classified Status: Acute (3) ESRD (end stage renal disease) on dialysis Code(s): N18.6 - End stage renal disease; Z99.2 - Dependence on renal dialysis Status: Acute (4) Back pain Code(s): M54.9 - Dorsalgia, unspecified Status: Acute - Plan 88-year-old male with ESRD on HD MWF, HLD, AFIB on Eliquis, DM, and CAD admitted for severe left flank pain with CT showing distal ureteral stone and U/A consistent with UTI. Met septic criteria on admission. 1. Pneumonia - No leukocytosis but there is a left shift - Procalcitonin elevated - CXR with bibasilar opacities - Start cefepime and Azithromycin - DuoNeb Q6H while awake - Incentive spirometer - Supplemental O2 2. UTI - U/A with leukocyte esterase - Urine culture no growth x 48 hours - Has received three doses of Rocephin - White count normalized 3. Urolithiasis - CT A/P suggestive of left distal ureteral stone without signs of obstruction, also bilateral nonobstructing renal stones - Pain control 4. Right pleural effusion with questionable underlying PNA vs. atelectasis - Pt complaining of pain in right back which could be exacerbated by effusion, pain improved following thoracentesis - CT A/P showing [id number] right pleural effusion, also seen on CXR - IR consulted and patient underwent US-guided thoracentesis yesterday - Fluid studies with transudative picture - Pleural fluid culture NG x 48 hours - Cytology pending - Patient does not urinate given ESRD therefore will hold off on diuretics - Supplemental O2 PRN - Covering for PNA as above 5. Back spasms - improving - Possibly multifactorial in nature including renal colic, pleural effusion, and severe degenerative disc disease - CT L-spine with multilevel DDD most severe at L3-L4 and L4-L5 where there is moderate to severe spinal canal stenosis and neural foraminal narrowing - PT consulted, recommending rehab as well as OT eval - Pain control 6. ESRD on HD - Nephrology following - Dialysis today 7. AFIB - Rate-controlled - Continue Coreg and Eliquis 8. Hypotension - BPs lower end but stable - Continue midodrine - On carvedilol for CAD but at a low dose - Continue to monitor 9. HLD - Continue home statin 10. CAD - Continue home ASA, Coreg, Imdur, and statin 11. DM - Not on any medications at home - A1c 6.3, can be counseled on dietary changes - SSI with Accu-Cheks per protocol for now 12. Hyponatremia - Sodium slowly decreasing (134 > 131 > 129) - Asymptomatic - Possibly secondary to fluid overload - Will check tomorrow since he is having dialysis today DVT Prophylaxis: Heparin sq Discharge Planning: Not stable for discharge given hypoxia and pneumonia (4) Back pain Qualifiers: Back pain location: low back pain Chronicity: acute Back pain laterality: left Sciatica presence: without sciatica Qualified Code(s): M54.5 - Low back pain
[2018-09-24] MEDS: Ferrous Sulfate 325 MG Tablet PO SCH (09:46)
[2018-09-24] MEDS: Senna/Docusate Sodium 8.6/50 MG Tablet PO SCH ×2 (09:46→21:20)
[2018-09-24] MEDS: traZODone 50 MG Tablet PO SCH (09:49)
[2018-09-24] MEDS: Insulin NovoLOG Aspart Correctional Sugar Inj SQ SCH ×4 (09:51→21:20)
[2018-09-24] MEDS: Morphine Inj 4 MG/ML Vial IV.PUSH PRN (11:45)
--- NOTE | 2018-09-24 14:32 | P.PNNP ---
Subjective Interval history: Heart feeling well feels tired Physical Exam Vital signs: Vital Signs 09/23/18 16:00 09/23/18 19:34 09/23/18 20:00 Temperature 98.5 F 98.4 F Pulse Rate 82 80 Respiratory Rate 18 18 15 Blood Pressure 104/51 L 102/53 L Pulse Oximetry 94 L 92 L 09/24/18 00:00 09/24/18 04:00 09/24/18 07:52 Temperature 98.6 F 98.4 F 99.5 F Pulse Rate 87 83 82 Respiratory Rate 16 16 16 Blood Pressure 112/54 L 96/53 L 98/51 L Pulse Oximetry 94 L 93 L 96 09/24/18 09:00 09/24/18 10:13 Temperature Pulse Rate 82 Respiratory Rate Blood Pressure Pulse Oximetry 98 Intake & Output 09/23/18 09/24/18 09/24/18 18:59 06:59 18:59 Intake Total 100 / 100 720 / 720 100 / 100 Output Total 0 / 0 1000 / 1000 Balance 100 / 100 720 / 720 -900 / -900 Intake: IV 100 / 100 100 / 100 Maxipime Inj 1,000 MG In NS Inj 100 / 100 100 ML @ 200 mls/hr IV.SIG Q24H [facility] Rx#:[id number] Rocephin Inj 1,000 MG In NS Inj 100 / 100 100 ML @ 200 mls/hr IV.SIG Q24H [facility] Rx#:[id number] Oral 720 / 720 Output: Urine 0 / 0 Hemodialysis Amount 1000 / 1000 Other: Date of Last Bowel Movement 09/20/18 09/22/18 09/22/18 Narrative: GENERAL: WN, WD elderly male sitting up in bed eating breakfast in NAD. SKIN: Warm and dry. HEENT: AT/NC. Pupils equal and round. MMM. HEART: RRR no m/r/g. LUNGS: Improved aeration of the lungs since thoracentesis but he does have bibasilar crackles. ABDOMEN: +BS, soft, NT, ND. EXTREMITIES: 2+ pitting edema bilaterally, LLE>RLE. Brawny, chronic skin discoloration. NEURO: Awake and alert. - Urinary Catheter Management Straight Cath placed during this visit: yes Reason for continuing: Not indwelling catheter Insertion date: 09/21/18 Insertion time: 04:36 Assessment and Plan - Assessment (1) ESRD (end stage renal disease) on dialysis Code(s): N18.6 - End stage renal disease; Z99.2 - Dependence on renal dialysis Status: Acute (2) Back pain Code(s): M54.9 - Dorsalgia, unspecified Status: Acute Qualifiers: Back pain location: low back pain Chronicity: acute Back pain laterality : left Sciatica presence: without sciatica Qualified Code(s): M54.5 - Low back pain (3) Diabetes Code(s): E11.9 - Type 2 diabetes mellitus without complications Status: Acute (4) Hypertension Code(s): I10 - Essential (primary) hypertension Status: Acute - Plan Hemodialysis to continue Monday, Monday and Monday. Patient has pleural effusion Severe degenerative lumbar spine disease ct Abd/pelvis possible stone in ureter Continue supportive care. Post Thoracentesis, 1 L was taken off with hemodialysis Hgb. is 9.7, on Epogen with HD. HD again on Monday
[2018-09-24] MEDS: Azithromycin Inj 500 MG in Sodium Chlor 0.9% Inj 250 ML IV.SIG SCH (14:53)
[2018-09-25] MEDS: Heparin - SQ 10,000 UNITS/ML Vial SQ SCH ×3 (04:54→20:56)
[2018-09-25] MEDS: Isosorbide Mononitrate 30 MG ER 24HR Tablet (Imdur) PO SCH (06:11)
[2018-09-25 08:21] LABS: Hematocrit 28.3 % (39.0-51.0); Hemoglobin 9.4 gm/dL (13.0-17.0); Mean Corpuscular HGB Conc 33.2 % (32.0-36.0); Mean Corpuscular Hemoglobin 30.8 pg (27.0-34.0); Mean Corpuscular Volume 92.8 fL (80.0-100.0); Mean Platelet Volume 9.3 fL (7.0-11.0); Platelet Count 92 th/mm3 (150-450); Red Blood Count 3.05 mil/mm3 (4.50-5.90); Red Cell Distribution Width 16.2 % (11.6-17.2)
[2018-09-25 08:28] LABS: Calcium 8.3 mg/dL (8.5-10.1); Carbon Dioxide 25.3 meq/L (21.0-32.0); Potassium 4.9 meq/L (3.5-5.1)
[2018-09-25 08:57] LABS: Eosinophils 1 % (0-4); Lymphocytes 4 % (9-44); Monocytes 7 % (0-8); Platelet Morphology Normal (Normal)
[2018-09-25] MEDS: traZODone 50 MG Tablet PO SCH (09:51)
[2018-09-25] MEDS: Ferrous Sulfate 325 MG Tablet PO SCH (09:52)
[2018-09-25] MEDS: Senna/Docusate Sodium 8.6/50 MG Tablet PO SCH ×2 (09:52→20:56)
[2018-09-25] MEDS: Insulin NovoLOG Aspart Correctional Sugar Inj SQ SCH ×4 (09:52→20:56)
[2018-09-25] MEDS: Azithromycin Inj 500 MG in Sodium Chlor 0.9% Inj 250 ML IV.SIG SCH (14:07)
--- NOTE | 2018-09-25 14:56 | P.CONPAL ---
Consult Service: Palliative Care Requesting Physician: Fei Banks Reason for Consult: a. To assist with evaluation and management of symptoms including: hypotension , pain. b. To assist medical decision maker(s) with: better understanding of current medical conditions; weighing benefits/burdens of medical treatment options; making medical treatment decisions. Primary Care Provider: Armand Flynn DO History of Present Illness History of Present Illness: Mr. Guillen is an 88 year old male with past medical history of atrial fibrillation on Eliquis, end stage renal disease on hemodialysis (M/W/F), hypertension, coronary artery disease, CHF and BPH. Patient presented to [facility] emergency department on 09/21/18 with left sided flank pain and back spasms. Pain was reported as intermittent, colicky pain in lower back and left flank, exacerbated by movement. Initial findings included: * WBC 13.8, hemoglobin 10.1, hematocrit 31.8, platelets 127, neutrophils 91.1 * creatinine 6.48, BUN 34, GFR 8 * T. bili 1.4, alk phos 209 * CT lumbar spine: dextroscoliosis with multilevel degenerative disc disease most severe at L3-L4 and L4-L5 where there is moderate to severe spinal canal stenosis and neural foraminal narrowing, bilateral pleural effusions, right larger than left, severe atherosclerotic disease. * CT abdomen and pelvis: high density associated with the distal left ureter, nonspecific this could represent small stones in the distal ureter, no signs of obstruction; small volume of nonspecific free fluid in the pelvis; nonacute findings in the abdomen and pelvis include severe atherosclerotic disease, bilateral renal cysts, cholelithiasis, and bilateral nonobstructing renal stones ; moderate to large right pleural effusion; airspace consolidation versus atelectasis is present in the right lower lobe and there is high density material within the lung bases bilaterally. Patient was admitted with possible UTI, non-obstructive ureter stones. Ultrasound guided right thoracentesis was performed on 09/22/18 for removal of 1750ml. Nephrology, Dr. Millan was consulted. Post hemodialysis 09/21, 09/22 and 09/24. Chest xray with bibasilar airspace opacity, atelectasis or airspace consolidation. On antibiotics for UTI, pneumonia. Since admission patient has had continued decline. Episode of desaturation with O2 sat 85%, improved with oxygen via NC 2LPM. Patient has has intermittent low grade temp and worsening hypotension over the past 24 hours. 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 Palliative care was consulted urgently to further clarify goals of medical treatment. Patient is awake, though lethargic. He is able to participate in conversation with continued prompting to stay awake. , Gifty at bedside. TIFF Dickerson also present. Discussed with nursing staff. Medical update provided. Explained patient is critically ill with severe hypotension reviewed options for continued aggressive care with transfer to ICU vs. transition to comfort measures. Patient indicates he does not want to be prolonged by machines , elects NO CODE (DNR/DNI). He and requests defibrillator be deactivated, explained pacemaker will not be interrupted. Reviewed poor prognosis of likely hours to days given severe hypotension. Patient desires comfort measures, he does not want to be in pain. He and are willing to meet with hospice. Audelia and Naima spoke with sonJean to review prognosis and plan of care, he agrees and is going to make arrangements to come to [place]. Palliative care number provided. [place] DNR order completed, signed by as patient fell asleep. Review of Systems Constitutional: Reports anorexia, Reports daytime sleepiness, Reports fatigue, Reports fever(s), Reports lack of energy, Reports weakness, Reports weight loss Cardiovascular: Reports shortness of breath Respiratory: Reports shortness of breath Genitourinary: Reports decreased urination Musculoskeletal: Reports decreased muscle mass, Reports muscle cramps, Reports muscle weakness Neurologic: Reports unsteadiness (ambulated with walker prior to admisison), Reports weakness Psychiatric: Reports change in appetite (decreased) Hematologic/Lymphatic: Reports easy bruising PMFSH - History History Provided By: Patient - Medical History Medical History: Medical History (Last Reviewed 09/25/18 @ 09:14 by Brittney Tony) A-fib AV fistula BPH (benign prostatic hyperplasia) Dialysis patient ESRD (end stage renal disease) Hyperchloremia Hypertension - Surgical History Surgical History: Surgical History (Last Reviewed 09/23/18 @ 09:10 by Juanjose Ambrose) AICD (automatic cardioverter/defibrillator) present Aortic valve replaced History of tonsillectomy Mitral valve replaced - Social History I have reviewed the patient's Social History: Yes - Tobacco History Tobacco Use In Past 30 Days: No Smoking Status: Former smoker Tobacco Type: Cigarettes Smoking End Date: 1961 - Alcohol History How Often Do You Have a Drink Containing Alcohol: 2 to 4 times a month - Substance Use History Substance History: No History of Abuse - Travel History Recent Travel in the [place] Within the Last 8 Weeks: No Recent Travel Out of the Country Within the Last 8 Weeks: No - Immunization History Tetanus Immunization: Unsure Medications and Allergies Active Medications: Active Medications Acetaminophen (Tylenol) 650 mg PO Q4H PRN PRN Reason: Temp > 100.4 Last Admin: 09/21/18 18:44 Dose: 650 mg Acetaminophen (Tylenol) 650 mg PO UNSCH PRN PRN Reason: SEE LABEL COMMENTS Al Hydroxide/Mg Hydroxide (Milk Of Magntiffanie Liq) 30 ml PO Q12H PRN PRN Reason: Mild Constipation Albuterol (Duoneb Neb (Rayne)) 1 ampul NEB Q6HR WHILE AWAKE NEB [facility] Last Admin: 09/25/18 07:56 Dose: 1 ampul Aspirin (Ecotrin) 81 mg PO DAILY [facility] Last Admin: 09/25/18 09:51 Dose: 81 mg Bisacodyl (Dulcolax Supp) 10 mg RECTAL DAILY PRN PRN Reason: SEVERE CONSITIPATION Carvedilol (Coreg) 3.125 mg PO BID [facility] Last Admin: 09/25/18 11:41 Dose: Not Given Clonidine HCl (Catapres) 0.1 mg PO UNSCH PRN PRN Reason: SEE LABEL COMMENTS Dextrose (D50w Vial) 50 ml IV.PUSH UNSCH PRN PRN Reason: PER HYPOGLYCEMIA PROTOCOL Diphenhydramine HCl (Benadryl) 25 mg PO UNSCH PRN PRN Reason: SEE LABEL COMMENTS Epoetin Taiwo (Epogen Inj) 4,000 unit IV.PUSH UNSCH PRN PRN Reason: SEE LABEL COMMENTS Last Admin: 09/24/18 13:55 Dose: 4,000 unit Ferrous Sulfate (Ferosul) 325 mg PO DAILY [facility] Last Admin: 09/25/18 09:52 Dose: 325 mg Gelatin (Gelfoam 12 Mm/7 Mm Topical) 1 foam TOPICAL PRN PRN PRN Reason: help stop bleeding from site Glucagon (Glucagon Inj) 1 mg OTHER PRN PRN PRN Reason: for Hypoglycemia Protocol Heparin Sodium (Porcine) (Heparin Inj) 5,000 units SQ Q8H [facility] Last Admin: 09/25/18 04:54 Dose: 5,000 units Heparin Sodium (Porcine) (Heparin Inj) 8,000 units OTHER WITH DIALYSIS PRN PRN Reason: for machine prime Albumin Human (Flexbumin 25% Inj) 100 mls @ 60 mls/hr IV.SIG WITH DIALYSIS PRN PRN Reason: hypotension / volume replace Sodium Chloride (Ns Inj) 1,000 mls @ 0 mls/hr OTHER .Q0M PRN PRN Reason: for prime and rinse back Sodium Chloride (Ns Inj) 1,000 mls @ 200 mls/hr OTHER .Q5H PRN PRN Reason: for dialyzer flush PRN Sodium Chloride (Ns Inj) 1,000 mls @ 0 mls/hr IV.CONT .Q0M PRN PRN Reason: hypotension / volume replace Cefepime HCl 1,000 mg/ Sodium (Chloride) 100 mls @ 200 mls/hr IV.SIG Q24H [facility] Last Infusion: 09/25/18 10:47 Dose: Infused Azithromycin 500 mg/ Sodium (Chloride) 250 mls @ 250 mls/hr IV.SIG Q24H [facility] Last Infusion: 09/24/18 17:41 Dose: Infused Insulin Aspart (Novolog Insulin Correctional Sugar Inj) 0 unit SQ ACHS [facility]; Protocol Last Admin: 09/25/18 09:52 Dose: 3 unit Isosorbide Mononitrate (Imdur) 30 mg PO DAILY@0700 [facility] Last Admin: 09/25/18 06:11 Dose: 30 mg Lactulose (Lactulose Liq) 30 ml PO DAILY PRN PRN Reason: SEVERE CONSITIPATION Mannitol (Mannitol Inj) 12.5 gm IV.PUSH UNSCH PRN PRN Reason: hypotension / volume replace Midodrine (Proamatine) 10 mg PO WITH DIALYSIS PRN PRN Reason: ON DIALYSIS DAYS ONLY Morphine Sulfate (Morphine Inj) 4 mg IV.PUSH Q4H PRN PRN Reason: pain 6-10 Last Admin: 09/24/18 11:45 Dose: 4 mg Nitroglycerin (Nitrostat Sl) 0.4 mg SL Q5M PRN PRN Reason: CHEST PAIN Ondansetron HCl (Zofran Inj) 4 mg IV.PUSH Q6H PRN PRN Reason: NAUSEA OR VOMITING Ondansetron HCl (Zofran Inj) 4 mg IV.PUSH UNSCH PRN PRN Reason: NAUSEA OR VOMITING Pantoprazole Sodium (Protonix) 40 mg PO BID [facility] Last Admin: 09/25/18 09:52 Dose: 40 mg Pravastatin Sodium (Pravachol) 10 mg PO DAILY [facility] Last Admin: 09/25/18 09:52 Dose: 10 mg Senna/Docusate Sodium (Tammie-Colace) 1 tab PO BID [facility] Last Admin: 09/25/18 09:52 Dose: 1 tab Sennosides (Senokot) 17.2 mg PO Q12H PRN PRN Reason: Moderate Constipation Sevelamer Carbonate (Renvela) 800 mg PO TID [facility] Last Admin: 09/25/18 09:51 Dose: 800 mg Sodium Chloride (Ns Flush) 2 ml IV.FLUSH PRN PRN PRN Reason: FLUSH AFTER USING IV ACCESS Sodium Chloride (Ns Flush) 2 ml IV.FLUSH BID [facility] Last Admin: 09/25/18 09:52 Dose: 2 ml Sodium Chloride (Ns Flush) 5 ml IV.FLUSH PRN PRN PRN Reason: flush each lumen during HD Trazodone HCl (Desyrel) 25 mg PO DAILY [facility] Last Admin: 09/25/18 09:51 Dose: 25 mg Allergies Allergy/AdvReac Type Severity Reaction Status Date / Time simvastatin Allergy Severe WEAKNESS Verified 09/20/18 22:15 Home Medications Medication Instructions Recorded Confirmed Type apixaban [Eliquis] 2.5 mg PO BID 08/01/18 09/20/18 History carvedilol 3.125 mg PO BID 08/01/18 09/20/18 History ferrous sulfate [Iron (ferrous 325 mg PO DAILY 08/01/18 09/20/18 History sulfate)] isosorbide mononitrate 30 mg PO DAILY 08/01/18 09/20/18 History midodrine 10 mg PO WITH DIALYSIS 08/01/18 09/20/18 History pravastatin 10 mg PO DAILY 08/01/18 09/20/18 History sevelamer carbonate [Renvela] 800 mg PO TID 08/01/18 09/20/18 History tamsulosin 0.4 mg PO DAILY 08/01/18 09/20/18 History aspirin [Aspir-81] 81 mg PO DAILY 09/20/18 09/20/18 History trazodone 25 mg PO DAILY 09/20/18 09/20/18 History zinc 50 mg PO DAILY 09/20/18 09/20/18 History Advance Directives Advance Directives Date on File: 01/26/01 Living Will: Yes Healthcare Surrogate: Yes Health Care Surrogate Name and Number: Gifty Guillen, : [phone] Power of Metal Loader: Yes Power of Metal Loader Relationship to Patient: Significant Other Today's verbally stated goals: Patient desires comfort measures, elects NO CODE (DNR/DNI), wants to deactivate defibrillator and hospice consult. Family/friends goals: Family supports patient wishes. Ethical and Legal Issues: Patient appears capacitated to make his own health care decisions, recommend shared decision making with his given severe hypotension and renal failure. Living Will on chart dated 01/26/2001. Standard Living Will naming his , Gifty as primary health care surrogate and daughters as alternate HCS. Physical Exam Vital Signs: Vital Signs - 24 hr 09/24/18 19:48 09/25/18 00:12 09/25/18 04:00 Temperature 97.7 F 98.2 F Pulse Rate 83 80 82 Respiratory Rate 19 20 20 Blood Pressure 82/44 L 73/33 L Pulse Oximetry 90 L 77 L 82 L 09/25/18 07:41 09/25/18 08:00 09/25/18 08:02 Temperature 98.3 F Pulse Rate 81 83 82 Respiratory Rate 14 12 16 Blood Pressure 99/40 L 79/33 L Pulse Oximetry 99 86 L 100 09/25/18 11:53 09/25/18 11:55 Temperature 98.1 F Pulse Rate 82 Respiratory Rate 16 Blood Pressure 68/32 L 72/28 L Pulse Oximetry 98 I&O: Intake & Output 09/23/18 09/24/18 09/25/18 09/26/18 06:59 06:59 06:59 06:59 Intake Total 560 / 560 820 / 820 350 / 350 100 / 100 Output Total 1999 / 1999 0 / 0 1000 / 1000 Balance -1440 / -1440 820 / 820 -650 / -650 100 / 100 Weight 91 kg Physical Exam: CONSTITUTIONAL/GENERAL: This is an elderly, ill appearing man, in no apparent distress. TUBES/LINES/DRAINS: PIV SKIN: No jaundice, rashes, or lesions. Ecchymoses on upper extremities. No wounds seen anteriorly. Skin temperature appropriate. Not diaphoretic. HEAD: Atraumatic. Normocephalic. EYES: Pupils equal and round and reactive. ENT: Hearing grossly normal. Nose without bleeding or purulent drainage. Throat without visible erythema, exudates, masses, or lesions. NECK: Trachea midline. CARDIOVASCULAR: Rate 82, no JVD. RESPIRATORY/CHEST: Mildly labored respirations. Lungs diminished with crackles in bases. GASTROINTESTINAL: Abdomen soft, non-tender, nondistended. No guarding. Bowel sounds present. GENITOURINARY: Without palpable bladder distension. MUSCULOSKELETAL: Extremities with edema. No mottling or clubbing. LYMPHATICS: Not examined. NEUROLOGICAL: Awake, lethargic, falls off to sleep easily, arouses easily. Follows commands. Cognitively sharp. Moves all extremities. PSYCHIATRIC: No obvious anxiety/depression. no apparent hallucinations or other psychotic thought process. Diagnostic Tests Laboratory: Laboratory Results - last 72 hr 09/21/18 09/22/18 09/22/18 19:47 14:43 16:50 WBC RBC Hgb Hct MCV MCH MCHC RDW Plt Count MPV Prelim Diff (Auto) Neut % (Auto) Lymph % (Auto) [place] % (Auto) Eos % (Auto) Baso % (Auto) Neut # (Auto) Lymph # (Auto) [place] # (Auto) Eos # (Auto) Baso # (Auto) WBC Differential Seg Neuts % (Manual) Band Neuts % (Manual) Lymphocytes % (Manual) Monocytes % (Manual) Eosinophils % (Manual) Basophils % (Manual) Abs Neuts (Manual) Differential Comment Dohle Bodies Platelet Estimate Platelet Morphology Ovalocytes PT 12.2 H INR 1.2 Sodium Potassium Chloride Carbon Dioxide Anion Gap BUN Creatinine Estimated GFR POC Glucose Random Glucose Hemoglobin A1c 6.3 H Calcium Lactate Dehydrogenase B-Natriuretic Peptide Albumin Procalcitonin Pleural RBC Pleural Nuc Cells Pleural Neutrophils Pleural Lymphocytes Pleural Monocytes Pleural Fluid Comment Pleural Total Protein 3.5 Pleural Albumin 2.0 Pleural LDH 89 09/22/18 09/22/18 09/22/18 16:50 18:18 22:00 WBC RBC Hgb Hct MCV MCH MCHC RDW Plt Count MPV Prelim Diff (Auto) Neut % (Auto) Lymph % (Auto) [place] % (Auto) Eos % (Auto) Baso % (Auto) Neut # (Auto) Lymph # (Auto) [place] # (Auto) Eos # (Auto) Baso # (Auto) WBC Differential Seg Neuts % (Manual) Band Neuts % (Manual) Lymphocytes % (Manual) Monocytes % (Manual) Eosinophils % (Manual) Basophils % (Manual) Abs Neuts (Manual) Differential Comment Dohle Bodies Platelet Estimate Platelet Morphology Ovalocytes PT INR Sodium Potassium Chloride Carbon Dioxide Anion Gap BUN Creatinine Estimated GFR POC Glucose 225 H 171 H Random Glucose Hemoglobin A1c Calcium Lactate Dehydrogenase B-Natriuretic Peptide Albumin Procalcitonin Pleural RBC 204 H Pleural Nuc Cells 80 H Pleural Neutrophils 45 Pleural Lymphocytes 48 Pleural Monocytes 7 Pleural Fluid Comment Pleural Total Protein Pleural Albumin Pleural LDH 09/23/18 09/23/18 09/23/18 07:45 07:45 07:45 WBC 7.7 RBC 3.13 L Hgb 9.7 L Hct 29.6 L MCV 94.4 MCH 31.1 MCHC 32.9 RDW 16.1 Plt Count 101 L MPV 9.3 Prelim Diff (Auto) Neut % (Auto) Lymph % (Auto) [place] % (Auto) Eos % (Auto) Baso % (Auto) Neut # (Auto) Lymph # (Auto) [place] # (Auto) Eos # (Auto) Baso # (Auto) WBC Differential Seg Neuts % (Manual) Band Neuts % (Manual) Lymphocytes % (Manual) Monocytes % (Manual) Eosinophils % (Manual) Basophils % (Manual) Abs Neuts (Manual) Differential Comment Dohle Bodies Platelet Estimate Platelet Morphology Ovalocytes PT INR Sodium 131 L Potassium 4.9 Chloride 95 L Carbon Dioxide 26.3 Anion Gap 10 BUN 49 H Creatinine 6.88 H Estimated GFR 8 L POC Glucose Random Glucose 184 H Hemoglobin A1c Calcium 8.1 L D Lactate Dehydrogenase 215 B-Natriuretic Peptide Albumin 2.7 L Procalcitonin Pleural RBC Pleural Nuc Cells Pleural Neutrophils Pleural Lymphocytes Pleural Monocytes Pleural Fluid Comment Pleural Total Protein Pleural Albumin Pleural LDH 09/23/18 09/23/18 09/23/18 09:08 13:24 18:14 WBC RBC Hgb Hct MCV MCH MCHC RDW Plt Count MPV Prelim Diff (Auto) Neut % (Auto) Lymph % (Auto) [place] % (Auto) Eos % (Auto) Baso % (Auto) Neut # (Auto) Lymph # (Auto) [place] # (Auto) Eos # (Auto) Baso # (Auto) WBC Differential Seg Neuts % (Manual) Band Neuts % (Manual) Lymphocytes % (Manual) Monocytes % (Manual) Eosinophils % (Manual) Basophils % (Manual) Abs Neuts (Manual) Differential Comment Dohle Bodies Platelet Estimate Platelet Morphology Ovalocytes PT INR Sodium Potassium Chloride Carbon Dioxide Anion Gap BUN Creatinine Estimated GFR POC Glucose 202 H 230 H 183 H Random Glucose Hemoglobin A1c Calcium Lactate Dehydrogenase B-Natriuretic Peptide Albumin Procalcitonin Pleural RBC Pleural Nuc Cells Pleural Neutrophils Pleural Lymphocytes Pleural Monocytes Pleural Fluid Comment Pleural Total Protein Pleural Albumin Pleural LDH 09/23/18 09/24/18 09/24/18 21:40 02:55 02:55 WBC 8.1 RBC 3.19 L Hgb 9.8 L Hct 30.1 L MCV 94.4 MCH 30.8 MCHC 32.6 RDW 16.0 Plt Count 95 L MPV 9.4 Prelim Diff (Auto) Slide review pending Neut % (Auto) 83.7 H Lymph % (Auto) 4.2 L [place] % (Auto) 10.8 H Eos % (Auto) 0.8 Baso % (Auto) 0.5 Neut # (Auto) 6.8 Lymph # (Auto) 0.3 L [place] # (Auto) 0.9 Eos # (Auto) 0.1 Baso # (Auto) 0.0 WBC Differential Manual diff final Seg Neuts % (Manual) 83 H Band Neuts % (Manual) 5 Lymphocytes % (Manual) 3 L Monocytes % (Manual) 8 Eosinophils % (Manual) 1 Basophils % (Manual) Abs Neuts (Manual) 7.1 Differential Comment . Dohle Bodies Present H Platelet Estimate Low L Platelet Morphology Normal Ovalocytes 1+ H PT INR Sodium 129 L Potassium 5.1 Chloride 93 L Carbon Dioxide 25.1 Anion Gap 11 BUN 60 H Creatinine 7.77 H Estimated GFR 7 L POC Glucose 186 H Random Glucose 150 H Hemoglobin A1c Calcium 8.2 L Lactate Dehydrogenase B-Natriuretic Peptide Albumin Procalcitonin Pleural RBC Pleural Nuc Cells Pleural Neutrophils Pleural Lymphocytes Pleural Monocytes Pleural Fluid Comment Pleural Total Protein Pleural Albumin Pleural LDH 09/24/18 09/24/18 09/24/18 02:55 02:55 09:15 WBC RBC Hgb Hct MCV MCH MCHC RDW Plt Count MPV Prelim Diff (Auto) Neut % (Auto) Lymph % (Auto) [place] % (Auto) Eos % (Auto) Baso % (Auto) Neut # (Auto) Lymph # (Auto) [place] # (Auto) Eos # (Auto) Baso # (Auto) WBC Differential Seg Neuts % (Manual) Band Neuts % (Manual) Lymphocytes % (Manual) Monocytes % (Manual) Eosinophils % (Manual) Basophils % (Manual) Abs Neuts (Manual) Differential Comment Dohle Bodies Platelet Estimate Platelet Morphology Ovalocytes PT INR Sodium Potassium Chloride Carbon Dioxide Anion Gap BUN Creatinine Estimated GFR POC Glucose 193 H Random Glucose Hemoglobin A1c Calcium Lactate Dehydrogenase B-Natriuretic Peptide 1585 H Albumin Procalcitonin 5.23 H Pleural RBC Pleural Nuc Cells Pleural Neutrophils Pleural Lymphocytes Pleural Monocytes Pleural Fluid Comment Pleural Total Protein Pleural Albumin Pleural LDH 09/24/18 09/24/18 09/25/18 12:25 18:05 07:59 WBC 8.0 RBC 3.05 L Hgb 9.4 L Hct 28.3 L MCV 92.8 MCH 30.8 MCHC 33.2 RDW 16.2 Plt Count 92 L MPV 9.3 Prelim Diff (Auto) Manual diff required Neut % (Auto) Lymph % (Auto) [place] % (Auto) Eos % (Auto) Baso % (Auto) Neut # (Auto) Lymph # (Auto) [place] # (Auto) Eos # (Auto) Baso # (Auto) WBC Differential Manual diff final Seg Neuts % (Manual) 80 H Band Neuts % (Manual) 7 H Lymphocytes % (Manual) 4 L Monocytes % (Manual) 7 Eosinophils % (Manual) 1 Basophils % (Manual) 1 Abs Neuts (Manual) 7.0 Differential Comment . Dohle Bodies Platelet Estimate Low L Platelet Morphology Normal Ovalocytes PT INR Sodium Potassium Chloride Carbon Dioxide Anion Gap BUN Creatinine Estimated GFR POC Glucose 142 H 226 H Random Glucose Hemoglobin A1c Calcium Lactate Dehydrogenase B-Natriuretic Peptide Albumin Procalcitonin Pleural RBC Pleural Nuc Cells Pleural Neutrophils Pleural Lymphocytes Pleural Monocytes Pleural Fluid Comment Pleural Total Protein Pleural Albumin Pleural LDH 09/25/18 09/25/18 09/25/18 07:59 09:00 11:57 WBC RBC Hgb Hct MCV MCH MCHC RDW Plt Count MPV Prelim Diff (Auto) Neut % (Auto) Lymph % (Auto) [place] % (Auto) Eos % (Auto) Baso % (Auto) Neut # (Auto) Lymph # (Auto) [place] # (Auto) Eos # (Auto) Baso # (Auto) WBC Differential Seg Neuts % (Manual) Band Neuts % (Manual) Lymphocytes % (Manual) Monocytes % (Manual) Eosinophils % (Manual) Basophils % (Manual) Abs Neuts (Manual) Differential Comment Dohle Bodies Platelet Estimate Platelet Morphology Ovalocytes PT INR Sodium 131 L Potassium 4.9 Chloride 96 L Carbon Dioxide 25.3 Anion Gap 10 BUN 49 H Creatinine 6.53 H Estimated GFR 8 L POC Glucose 210 H 252 H Random Glucose 176 H Hemoglobin A1c Calcium 8.3 L Lactate Dehydrogenase B-Natriuretic Peptide Albumin Procalcitonin Pleural RBC Pleural Nuc Cells Pleural Neutrophils Pleural Lymphocytes Pleural Monocytes Pleural Fluid Comment Pleural Total Protein Pleural Albumin Pleural LDH Result Diagrams: 09/25/18 07:59 09/25/18 07:59 Microbiology: Microbiology 09/22/18 16:50 Gram Stain - Final Fluid - Pleural fluid Body Fluid Culture - Final No growth in 72 hours (aerobically and anaerobically) 09/21/18 04:40 Urine Culture - Final Catheterized Urine No growth in 48 hours Imaging: Lumbar Spine CT 09/20/18 22:26 CONCLUSION: 1. Dextroscoliosis with multilevel degenerative disc disease most severe at L3- L4 and L4-L5 where there is moderate to severe spinal canal stenosis and neural foraminal narrowing. 2. There are bilateral pleural effusions, right larger than left. 3. Severe atherosclerotic disease. Abdomen/Pelvis CT 09/21/18 01:32 CONCLUSION: 1. There is high density associated with the distal left ureter. Although nonspecific this could represent small stones in the distal ureter. There are no signs of obstruction. 2. Small volume of nonspecific free fluid in the pelvis. 3. Nonacute findings in the abdomen and pelvis include severe atherosclerotic disease, bilateral renal cysts, cholelithiasis, and bilateral nonobstructing renal stones. 4. There is a moderate to large right pleural effusion. Airspace consolidation versus atelectasis is present in the right lower lobe and there is high density material within the lung bases bilaterally. Thoracentesis Ultrasound 09/22/18 00:00 CONCLUSION: 1. Uncomplicated right thoracentesis. Chest X-Ray 09/24/18 00:00 CONCLUSION: Stable bibasilar airspace opacity. This could represent atelectasis or airspace consolidation. Patient/Family Conference Present at Family Conference: at bedside. Spoke with son, Jean via phone. Family Conference Time: 60 Family Conference Location: Bedside Issues Discussed: * Palliative care role, purpose, approach * Additional medical, psychosocial, and spiritual history * Patients general health, functional status, and cognitive changes in the months leading up to the current hospitalization * Patient/family understanding of the current medical problems * Patient/family understanding of prognosis * Patients goals of care as best understood from advance directives and/or conversations and/or values * Current medical treatment options and benefits/burdens of those options * Likely scenarios comparing ongoing aggressive care with a transition to comfort measures only * Questions answered to the best of my ability * Palliative care contact information provided Patient desires comfort measures with DNR, deactivation of defibrillator and hospice consult. and son support his wishes. Assessment and Plan - Disease Oriented Problem List (1) ESRD (end stage renal disease) on dialysis (2) Back pain (3) Diabetes (4) Urolithiasis (5) Pneumonia - Symptom Scale (1) Hypotension 0-10 Scale: Unable to quantify (2) Pain 0-10 Scale: Unable to quantify Pertinent Non-Medical Issues: Psychosocial: . 2 daughters, 1 son. 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 Spiritual: Shinto manjinder. Legal:Patient appears capacitated to make his own health care decisions, recommend shared decision making with his given severe hypotension and renal failure. Living Will on chart dated 01/26/2001. Standard Living Will naming his Gifty as primary health care surrogate and daughters as alternate HCS. Ethical issues impacting care: No known concerns at this time. Family history: mother in her 90s. Father in 70s, sudden . Important Contacts: * Gifty Guillen, /HCS: [phone] or [phone] * Jean Guillen, son: [phone] Prognosis: Poor prognosis in the setting of end stage renal disease, CHF, CAD with severe hypotension, no longer a candidate for dialysis. Prognosis hours to days. Code Status: No Code DNR Plan: * Patient appears capacitated to make his own health care decisions, recommend shared decision making with his given severe hypotension and renal failure. Living Will on chart dated 01/26/2001. Standard Living Will naming his Gifty as primary health care surrogate and daughters as alternate HCS. * NO CODE - [place] DNR completed. * Patient is awake, though lethargic. He is able to participate in conversation with continued prompting to stay awake. , Gifty at bedside. TIFF Dickerson also present. Discussed with nursing staff. Medical update provided. Explained patient is critically ill with severe hypotension reviewed options for continued aggressive care with transfer to ICU vs. transition to comfort measures. Patient indicates he does not want to be prolonged by machines , elects NO CODE (DNR/DNI). He and requests defibrillator be deactivated, explained pacemaker will not be interrupted. Reviewed poor prognosis of likely hours to days given severe hypotension. Patient desires comfort measures, he does not want to be in pain. He and are willing to meet with hospice. Audelia and Naima spoke with sonJean to review prognosis and plan of care, he agrees and is going to make arrangements to come to [place]. Palliative care number provided. * Prognosis hours to days, family aware. Son and advised patient may not survive until family arrives. * Nurse notified not to hold pain medication for hypotension. * Hospice consulted. * Order placed to deactivate defibrillator per family request. * SYMPTOMS: pain: intermittent severe lower back, flank and leg pain. Has PRN Morphine available. Would recommend transition to hydromorphone in the setting of renal failure, no longer a candidate for hemodialysis. Hypotension: secondary to cardiac and renal disease. Family desires comfort measures. * Palliative care number provided. * Palliative care will continue to follow to assist with symptom management and further clarification of goals of medical treatment as needed. Appreciation Thank you for the opportunity to participate in the care of [facility]. Attestation Attestation: To help prompt me to consider important information that might be impacting today's encounter and assessment, information from prior notes written by myself or my colleagues may have been "brought forward" into today's note. My signature on this note, however, is an attestation that I personally performed the exam, history, and/or decision-making noted today, and, unless otherwise indicated, the interactions with patient, family, and staff as well as the review of records all occurred today. I also attest that the listed assessment and stated plan reflect my best clinical judgment today based on the combination of historical information, prior notes, and today's exam/ interactions. When time spent is documented, it refers only to time spent today by the signer, or if indicated, combined time spent today by collaborating physician/nurse practitioner.
--- NOTE | 2018-09-25 15:01 | P.PNNP ---
Subjective Interval history: Patient feels weak Physical Exam Vital signs: Vital Signs 09/24/18 19:48 09/25/18 00:12 09/25/18 04:00 Temperature 97.7 F 98.2 F Pulse Rate 83 80 82 Respiratory Rate 19 20 20 Blood Pressure 82/44 L 73/33 L Pulse Oximetry 90 L 77 L 82 L 09/25/18 07:41 09/25/18 08:00 09/25/18 08:02 Temperature 98.3 F Pulse Rate 81 83 82 Respiratory Rate 14 12 16 Blood Pressure 99/40 L 79/33 L Pulse Oximetry 99 86 L 100 09/25/18 11:53 09/25/18 11:55 Temperature 98.1 F Pulse Rate 82 Respiratory Rate 16 Blood Pressure 68/32 L 72/28 L Pulse Oximetry 98 Intake & Output 09/24/18 09/25/18 09/25/18 18:59 06:59 18:59 Intake Total 350 / 350 100 / 100 Output Total 1000 / 1000 Balance -650 / -650 100 / 100 Intake: IV 350 / 350 100 / 100 Azithromycin Inj 500 MG In NS 250 / 250 Inj 250 ML @ 250 mls/hr IV.SIG Q24H MONIQUE Rx#:[id number] Maxipime Inj 1,000 MG In NS Inj 100 / 100 100 / 100 100 ML @ 200 mls/hr IV.SIG Q24H MONIQUE Rx#:[id number] Output: Hemodialysis Amount 1000 / 1000 Other: Date of Last Bowel Movement 09/22/18 Narrative: GENERAL: WN, WD elderly male sitting up in bed eating breakfast in NAD. SKIN: Warm and dry. HEENT: AT/NC. Pupils equal and round. MMM. HEART: RRR no m/r/g. LUNGS: Improved aeration of the lungs since thoracentesis but he does have bibasilar crackles. ABDOMEN: +BS, soft, NT, ND. EXTREMITIES: 2+ pitting edema bilaterally, LLE>RLE. Brawny, chronic skin discoloration. NEURO: Awake and alert. - Urinary Catheter Management Straight Cath placed during this visit: yes Reason for continuing: Not indwelling catheter Insertion date: 09/21/18 Insertion time: 04:36 Assessment and Plan - Assessment (1) ESRD (end stage renal disease) on dialysis Code(s): N18.6 - End stage renal disease; Z99.2 - Dependence on renal dialysis Status: Acute (2) Back pain Code(s): M54.9 - Dorsalgia, unspecified Status: Acute Qualifiers: Back pain location: low back pain Chronicity: acute Back pain laterality : left Sciatica presence: without sciatica Qualified Code(s): M54.5 - Low back pain (3) Diabetes Code(s): E11.9 - Type 2 diabetes mellitus without complications Status: Acute (4) Hypertension Code(s): I10 - Essential (primary) hypertension Status: Acute - Plan Hemodialysis to discontinue , patient signed up for Hospice Patient has pleural effusion Severe degenerative lumbar spine disease ct Abd/pelvis possible stone in ureter Continue supportive care. Post Thoracentesis, discontinue hemodialysis as BP dropped AICD turned off very low BP but responsive decided to go to hospice
--- NOTE | 2018-09-25 17:44 | P.PN ---
Subjective Interval history: Patient seen lying in bed. is at bedside. RELAYS DRAFTSPERSON from palliative care also present. Patient is awake and oriented. He does drift off to sleep but is easy to arouse. Discussed patient condition and he agrees that he does not want any life-saving interventions and that he would like his defibrillator turned off. Patient tells me that his pain from yesterday had currently comfortable. Spoke to patient's son Jean via telephone with pt permission. Son tells me that his father does have an advanced directive and that he is wanting to honor it. Discussed that father's condition is very serious; he and his sisters are planning to travel to [facility] as soon as possible. Please see palliative note for additional detail. Physical Exam Vital signs: Vital Signs 09/24/18 19:48 09/25/18 00:12 09/25/18 04:00 Temperature 97.7 F 98.2 F Pulse Rate 83 80 82 Respiratory Rate 19 20 20 Blood Pressure 82/44 L 73/33 L Pulse Oximetry 90 L 77 L 82 L 09/25/18 07:41 09/25/18 08:00 09/25/18 08:02 Temperature 98.3 F Pulse Rate 81 83 82 Respiratory Rate 14 12 16 Blood Pressure 99/40 L 79/33 L Pulse Oximetry 99 86 L 100 09/25/18 09:00 09/25/18 11:53 09/25/18 11:55 Temperature 98.1 F Pulse Rate 82 82 Respiratory Rate 16 Blood Pressure 68/32 L 72/28 L Pulse Oximetry 98 09/25/18 12:00 09/25/18 16:00 Temperature 98.2 F Pulse Rate 98 H 82 Respiratory Rate 12 Blood Pressure 72/32 L Pulse Oximetry 100 Intake & Output 09/24/18 09/25/18 09/25/18 18:59 06:59 18:59 Intake Total 350 / 350 350 / 350 Output Total 1000 / 1000 Balance -650 / -650 350 / 350 Intake: IV 350 / 350 350 / 350 Azithromycin Inj 500 MG In NS 250 / 250 250 / 250 Inj 250 ML @ 250 mls/hr IV.SIG Q24H MONIQUE Rx#:[id number] Maxipime Inj 1,000 MG In NS Inj 100 / 100 100 / 100 100 ML @ 200 mls/hr IV.SIG Q24H MONIQUE Rx#:[id number] Output: Hemodialysis Amount 1000 / 1000 Other: Date of Last Bowel Movement 09/22/18 Narrative: GENERAL: Well-nourished, well-developed adult male in no obvious distress. SKIN: Warm and dry. HEAD: Atraumatic. Normocephalic. CARDIOVASCULAR: Regular rate and rhythm. RESPIRATORY: No accessory muscle use. Fine crackles bases. GASTROINTESTINAL: Abdomen soft, non-tender, non-distended. Positive bowel sounds. MUSCULOSKELETAL: Bilateral lower leg edema, +2. NEUROLOGICAL: Awake and alert. No obvious cranial nerve deficits. Motor grossly within normal limits. Normal speech. PSYCHIATRIC: Appropriate mood and affect; insight and judgment good. - Urinary Catheter Management Straight Cath placed during this visit: yes Reason for continuing: Not indwelling catheter Insertion date: 09/21/18 Insertion time: 04:36 Results - Labs CBC & Chem 7: 09/25/18 07:59 09/25/18 07:59 Laboratory Results - last 24 hr 09/24/18 09/25/18 09/25/18 18:05 07:59 07:59 WBC 8.0 RBC 3.05 L Hgb 9.4 L Hct 28.3 L MCV 92.8 MCH 30.8 MCHC 33.2 RDW 16.2 Plt Count 92 L MPV 9.3 Prelim Diff (Auto) Manual diff required WBC Differential Manual diff final Seg Neuts % (Manual) 80 H Band Neuts % (Manual) 7 H Lymphocytes % (Manual) 4 L Monocytes % (Manual) 7 Eosinophils % (Manual) 1 Basophils % (Manual) 1 Abs Neuts (Manual) 7.0 Differential Comment . Platelet Estimate Low L Platelet Morphology Normal Sodium 131 L Potassium 4.9 Chloride 96 L Carbon Dioxide 25.3 Anion Gap 10 BUN 49 H Creatinine 6.53 H Estimated GFR 8 L POC Glucose 226 H Random Glucose 176 H Calcium 8.3 L 09/25/18 09/25/18 09/25/18 09:00 11:57 17:18 WBC RBC Hgb Hct MCV MCH MCHC RDW Plt Count MPV Prelim Diff (Auto) WBC Differential Seg Neuts % (Manual) Band Neuts % (Manual) Lymphocytes % (Manual) Monocytes % (Manual) Eosinophils % (Manual) Basophils % (Manual) Abs Neuts (Manual) Differential Comment Platelet Estimate Platelet Morphology Sodium Potassium Chloride Carbon Dioxide Anion Gap BUN Creatinine Estimated GFR POC Glucose 210 H 252 H 308 H Random Glucose Calcium Microbiology 12/01/18 16:50 Fluid - Pleural fluid Gram Stain - Final 09/22/18 16:50 Fluid - Pleural fluid Body Fluid Culture - Final No growth in 72 hours (aerobically and anaerobically ) Assessment and Plan - Assessment (1) Urolithiasis Code(s): N20.9 - Urinary calculus, unspecified Status: Acute (2) Pleural effusion on right Code(s): J90 - Pleural effusion, not elsewhere classified Status: Acute (3) ESRD (end stage renal disease) on dialysis Code(s): N18.6 - End stage renal disease; Z99.2 - Dependence on renal dialysis Status: Acute (4) Back pain Code(s): M54.9 - Dorsalgia, unspecified Status: Acute - Plan 88-year-old male with ESRD on HD MWF, HLD, AFIB on Eliquis, DM, and CAD admitted for severe left flank pain with CT showing distal ureteral stone and U/A consistent with UTI. Met septic criteria on admission. 1. Pneumonia - No leukocytosis but there is a left shift - Procalcitonin elevated - CXR with bibasilar opacities - Start cefepime and Azithromycin - DuoNeb Q6H while awake - Incentive spirometer - Supplemental O2 2. UTI - U/A with leukocyte esterase - Urine culture no growth x 48 hours - Has received three doses of Rocephin - White count normalized 3. Urolithiasis - CT A/P suggestive of left distal ureteral stone without signs of obstruction, also bilateral nonobstructing renal stones - Pain control 4. Right pleural effusion with questionable underlying PNA vs. atelectasis - Pt complaining of pain in right back which could be exacerbated by effusion, pain improved following thoracentesis - CT A/P showing [id number] right pleural effusion, also seen on CXR - IR consulted and patient underwent US-guided thoracentesis yesterday - Fluid studies with transudative picture - Pleural fluid culture NG x 48 hours - Cytology pending - Patient does not urinate given ESRD therefore will hold off on diuretics - Supplemental O2 PRN - Covering for PNA as above 5. Back spasms - improving - Possibly multifactorial in nature including renal colic, pleural effusion, and severe degenerative disc disease - CT L-spine with multilevel DDD most severe at L3-L4 and L4-L5 where there is moderate to severe spinal canal stenosis and neural foraminal narrowing - Pain control 6. ESRD on HD - Nephrology following - Dialysis discontinued due to hospice selection 7. AFIB - Rate-controlled - Continue Coreg and Eliquis 8. Hypotension - BPs very low - Continue midodrine - On carvedilol for CAD but at a low dose; may need to hold for sever hypotension - Continue to monitor 9. HLD - Continue home statin 10. CAD - Continue home ASA, Coreg, Imdur, and statin 11. DM - Not on any medications at home - A1c 6.3, can be counseled on dietary changes - SSI with Accu-Cheks per protocol for now 12. Hyponatremia - Sodium slowly decreasing (134 > 131 > 129) - Asymptomatic - Possibly secondary to fluid overload DVT Prophylaxis: Heparin sq Discharge Planning: Now DNR / Hospice (4) Back pain Qualifiers: Back pain location: low back pain Chronicity: acute Back pain laterality: left Sciatica presence: without sciatica Qualified Code(s): M54.5 - Low back pain
[2018-09-26] MEDS: Heparin - SQ 10,000 UNITS/ML Vial SQ SCH ×2 (04:14→13:30)
[2018-09-26 08:20] VITALS: TEMP 98.6
[2018-09-26] MEDS: Ferrous Sulfate 325 MG Tablet PO SCH (11:32)
[2018-09-26] MEDS: Isosorbide Mononitrate 30 MG ER 24HR Tablet (Imdur) PO SCH (11:32)
[2018-09-26] MEDS: traZODone 50 MG Tablet PO SCH (11:33)
[2018-09-26] MEDS: Senna/Docusate Sodium 8.6/50 MG Tablet PO SCH (11:33)
[2018-09-26 12:11] VITALS: BP 134/57; O2SAT 94
[2018-09-26] MEDS: Insulin NovoLOG Aspart Correctional Sugar Inj SQ SCH ×2 (13:12→13:28)
[2018-09-26 13:35] VITALS: PULSE 80
[2018-09-26] MEDS: Morphine Inj 4 MG/ML Vial IV.PUSH PRN ×2 (14:27→17:21)
--- NOTE | 2018-09-26 14:36 | P.PNIM ---
Subjective Interval history: Patient seen lying in bed. He is experiencing some more pain today versus yesterday. Was just medicated by nursing. Patient's is at bedside and children are expected in town today. No new concerns or complaints. Physical Exam Vital signs: Last Vital Signs Temp 98.6 F 09/26/18 08:18 Pulse 80 09/26/18 13:34 Resp 20 09/26/18 13:34 BP 134/57 L 09/26/18 12:09 Pulse Ox 94 L 09/26/18 12:09 Intake & Output 09/24/18 09/25/18 09/26/18 09/27/18 06:59 06:59 06:59 06:59 Intake Total 820 / 820 350 / 350 350 / 350 200 / 200 Output Total 0 / 0 1000 / 1000 Balance 820 / 820 -650 / -650 350 / 350 200 / 200 Narrative: GENERAL: Well-nourished, well-developed adult male in no obvious distress. SKIN: Warm and dry. HEAD: Atraumatic. Normocephalic. CARDIOVASCULAR: Regular rate and rhythm. RESPIRATORY: No accessory muscle use. Fine crackles bases. GASTROINTESTINAL: Abdomen soft, non-tender, non-distended. Positive bowel sounds. MUSCULOSKELETAL: Bilateral lower leg edema, +2. NEUROLOGICAL: Awake and alert. No obvious cranial nerve deficits. Motor grossly within normal limits. Normal speech. PSYCHIATRIC: Appropriate mood and affect; insight and judgment good. Urinary Catheter Management Straight: Cath placed during this visit: yes Urethral indwelling: No Insertion date: 09/21/18 Insertion time: 04:36 Results Labs CBC & Chem 7: 09/25/18 07:59 09/25/18 07:59 Labs: Microbiology 09/25/18 10:00 Blood - Peripheral Aerobic Blood Culture - Preliminary Enterococcus faecalis 09/25/18 10:00 Blood - Peripheral Anaerobic Blood Culture - Preliminary gram positive cocci 09/25/18 10:07 Blood - Peripheral Aerobic Blood Culture - Preliminary gram positive cocci 09/25/18 10:07 Blood - Peripheral Anaerobic Blood Culture - Preliminary gram positive cocci Assessment and Plan Plan 88-year-old male with ESRD on HD MWF, HLD, AFIB on Eliquis, DM, and CAD admitted for severe left flank pain with CT showing distal ureteral stone and U/A consistent with UTI. Met septic criteria on admission. 1. Pneumonia - No leukocytosis but there is a left shift - Procalcitonin elevated - CXR with bibasilar opacities - Start cefepime and Azithromycin; repeat cultures showed gram-positive cocci so we will change azithromycin to ampicillin. - DuoNeb Q6H while awake - Incentive spirometer - Supplemental O2 2. UTI - U/A with leukocyte esterase - Urine culture no growth x 48 hours - Has received three doses of Rocephin - White count normalized 3. Urolithiasis - CT A/P suggestive of left distal ureteral stone without signs of obstruction, also bilateral nonobstructing renal stones - Pain control 4. Right pleural effusion with questionable underlying PNA vs. atelectasis - Pt complaining of pain in right back which could be exacerbated by effusion, pain improved following thoracentesis - CT A/P showing [id number] right pleural effusion, also seen on CXR - IR consulted and patient underwent US-guided thoracentesis yesterday - Fluid studies with transudative picture - Pleural fluid culture NG x 48 hours - Cytology pending - Patient does not urinate given ESRD therefore will hold off on diuretics - Supplemental O2 PRN - Covering for PNA as above 5. Back spasms - improving - Possibly multifactorial in nature including renal colic, pleural effusion, and severe degenerative disc disease - CT L-spine with multilevel DDD most severe at L3-L4 and L4-L5 where there is moderate to severe spinal canal stenosis and neural foraminal narrowing - Pain control 6. ESRD on HD - Nephrology following - Dialysis discontinued due to hospice selection 7. AFIB - Rate-controlled - Continue Coreg and Eliquis 8. Hypotension - BPs very low - Continue midodrine - On carvedilol for CAD but at a low dose; may need to hold for sever hypotension - Continue to monitor 9. HLD - Continue home statin 10. CAD - Continue home ASA, Coreg, Imdur, and statin 11. DM - Not on any medications at home - A1c 6.3, can be counseled on dietary changes -Stop Accu-Cheks and sliding scale due to hospice selection 12. Hyponatremia - Sodium slowly decreasing (134 > 131 > 129) - Asymptomatic - Possibly secondary to fluid overload DVT Prophylaxis: Heparin sq Discharge Planning: Now DNR / Hospice Progress Note: Quality VTE Deep Vein Thrombosis/Pulmonary Embolism Present on Admission: No
--- NOTE | 2018-09-26 14:45 | P.DS ---
DS: Providers Date of admission: 09/24/18 15:22 Primary care physician: Armand Flynn DO Consults: 09/21/18 04:25 Consult to Nephrology Routine Consulting Provider: Janeen Millan Does the patient have a Under Cutter who follows them?: No Preferred Nephrology Supervisor [place] Placing:: Janeen Millan Reason for Consultation: ESRD on dialysis MWF Notified:: Service Spoke with:: [place] Date Notified:: 09/21/18 Time Notified:: 04:37 Ordering Provider: BLAINE 09/24/18 15:29 HUB Only Consult Order Routine Consulting Provider: [facility],[place] 09/25/18 10:37 Consult to Palliative Care Routine Consulting Provider: Abdiaziz Schumacher Reason for Consultation: patient very ill; son claim DNR but no documentation present; concern that may have poor insight for MDM capacity; urgent consult Notified:: Service Spoke with:: [place] Date Notified:: 09/25/18 Time Notified:: 10:40 Ordering Provider: BORIS Brief History from admission: [id number] with a past medical history significant for end-stage renal disease on dialysis Monday, hypertension, hyperlipidemia, atrial fibrillation anticoagulated on Eliquis, diabetes mellitus and coronary artery disease presents to the emergency department for the evaluation of left- sided flank pain and back spasms. The patient noted that his symptoms started this morning when he woke up and they were exacerbated by movement and turning. He describes the pain is intermittent and colicky affecting the lower aspect of his back and left flank. Patient reports he occasionally makes urine, last urination yesterday morning. He denies any chest pain or shortness of breath. No fever/chills. No abdominal or pelvic pain. No nausea/vomiting/diarrhea. No focal neurologic deficits. DS: Summary 88-year-old male with ESRD on HD MWF, HLD, AFIB on Eliquis, DM, and CAD admitted for severe left flank pain with CT showing distal ureteral stone and U/A consistent with UTI. Met septic criteria on admission. Patient also suspected to have pneumonia; blood cultures eventually positive. Treated with antibiotics based on susceptibility. Chest x-ray showed large pleural effusion which required thoracentesis. Dialysis was attempted while hospitalized however patient tolerated it very poorly. Unfortunately patient continued to decline and eventually decision was made for palliative and comfort care with transition to hospice. 1. Pneumonia - No leukocytosis but there is a left shift - Procalcitonin elevated - CXR with bibasilar opacities - Start cefepime and Azithromycin; repeat cultures showed gram-positive cocci so we will change azithromycin to ampicillin. - DuoNeb Q6H while awake - Incentive spirometer - Supplemental O2 2. UTI - U/A with leukocyte esterase - Urine culture no growth x 48 hours - Has received three doses of Rocephin - White count normalized 3. Urolithiasis - CT A/P suggestive of left distal ureteral stone without signs of obstruction, also bilateral nonobstructing renal stones - Pain control 4. Right pleural effusion with questionable underlying PNA vs. atelectasis - Pt complaining of pain in right back which could be exacerbated by effusion, pain improved following thoracentesis - CT A/P showing [id number] right pleural effusion, also seen on CXR - IR consulted and patient underwent US-guided thoracentesis yesterday - Fluid studies with transudative picture - Pleural fluid culture NG x 48 hours - Cytology pending - Patient does not urinate given ESRD therefore will hold off on diuretics - Supplemental O2 PRN - Covering for PNA as above 5. Back spasms - improving - Possibly multifactorial in nature including renal colic, pleural effusion, and severe degenerative disc disease - CT L-spine with multilevel DDD most severe at L3-L4 and L4-L5 where there is moderate to severe spinal canal stenosis and neural foraminal narrowing - Pain control 6. ESRD on HD - Nephrology following - Dialysis discontinued due to hospice selection 7. AFIB - Rate-controlled - Continue Coreg and Eliquis -Defibrillator turned off based on patient decision for palliative care 8. Hypotension - BPs very low - Continue midodrine - On carvedilol for CAD but at a low dose; may need to hold for sever hypotension - Continue to monitor 9. HLD - Continue home statin 10. CAD - Continue home ASA, Coreg, Imdur, and statin 11. DM - Not on any medications at home - A1c 6.3, can be counseled on dietary changes -Stop Accu-Cheks and sliding scale due to hospice selection 12. Hyponatremia - Sodium slowly decreasing (134 > 131 > 129) - Asymptomatic - Possibly secondary to fluid overload Time Spent with Patient Total time spent providing and/or coordinating discharge services: Quality: VTE Deep Vein Thrombosis/Pulmonary Embolism Present on Admission: No Exam Narrative Exam Narrative: GENERAL: Well-nourished, well-developed adult male in no obvious distress. SKIN: Warm and dry. HEAD: Atraumatic. Normocephalic. CARDIOVASCULAR: Regular rate and rhythm. RESPIRATORY: No accessory muscle use. Fine crackles bases. GASTROINTESTINAL: Abdomen soft, non-tender, non-distended. Positive bowel sounds. MUSCULOSKELETAL: Bilateral lower leg edema, +2. NEUROLOGICAL: Awake and alert. No obvious cranial nerve deficits. Motor grossly within normal limits. Normal speech. PSYCHIATRIC: Appropriate mood and affect; insight and judgment good. Results Labs on day of discharge: Labs from last 24 hours 09/26/18 09/25/18 12:29 17:18 POC Glucose 215 H 308 H Preliminary micro results at discharge 09/25/18 10:00 Aerobic Blood Culture - Preliminary Blood - Peripheral Enterococcus faecalis Anaerobic Blood Culture - Preliminary gram positive cocci 09/25/18 10:07 Aerobic Blood Culture - Preliminary Blood - Peripheral gram positive cocci Anaerobic Blood Culture - Preliminary gram positive cocci Impressions ITS Impressions Lumbar Spine CT 09/20/18 22:26 CONCLUSION: 1. Dextroscoliosis with multilevel degenerative disc disease most severe at L3- L4 and L4-L5 where there is moderate to severe spinal canal stenosis and neural foraminal narrowing. 2. There are bilateral pleural effusions, right larger than left. 3. Severe atherosclerotic disease. Abdomen/Pelvis CT 09/21/18 01:32 CONCLUSION: 1. There is high density associated with the distal left ureter. Although nonspecific this could represent small stones in the distal ureter. There are no signs of obstruction. 2. Small volume of nonspecific free fluid in the pelvis. 3. Nonacute findings in the abdomen and pelvis include severe atherosclerotic disease, bilateral renal cysts, cholelithiasis, and bilateral nonobstructing renal stones. 4. There is a moderate to large right pleural effusion. Airspace consolidation versus atelectasis is present in the right lower lobe and there is high density material within the lung bases bilaterally. Thoracentesis Ultrasound 09/22/18 00:00 CONCLUSION: 1. Uncomplicated right thoracentesis. Chest X-Ray 09/24/18 00:00 CONCLUSION: Stable bibasilar airspace opacity. This could represent atelectasis or airspace consolidation. Discharge Plan Discharge Disposition Patient Disposition: [facility] Hospice/Med Facility Discharge Condition Condition: Stable Discharge Order Discharge Orders: Discharge Order (Routine); Ordered 09/26/18 Ordered By: Audelia Proctor Discharge Details Anticipated Discharge Date: 09/26/18 Physicians Team Primary Care Provider: Armand Flynn Attending Provider: Fei Banks Other Providers: Janeen Millan ; [facility] ; Abdiaziz Schumacher Rxs /Orders / Referrals /Forms Prescriptions: Continue isosorbide mononitrate 30 mg Tablet Extended Release 24 Hr 30 mg PO DAILY RF: 0 carvedilol 3.125 mg Tablet 3.125 mg PO BID RF: 0 tamsulosin 0.4 mg Capsule 0.4 mg PO DAILY RF: 0 sevelamer carbonate [Renvela] 800 mg Tablet 800 mg PO TID RF: 0 apixaban [Eliquis] 2.5 mg Tablet 2.5 mg PO BID RF: 0 pantoprazole [Protonix] [address] For Susp In Packet 40 mg PO BID Qty: 30 RF: 0 trazodone 50 mg Tablet 25 mg PO DAILY RF: 0 zinc 50 mg Tablet 50 mg PO DAILY RF: 0 Discontinued pravastatin 10 mg Tablet 10 mg PO DAILY RF: 0 ferrous sulfate [Iron (ferrous sulfate)] 325 mg (65 mg iron) Tablet 325 mg PO DAILY RF: 0 midodrine 10 mg Tablet 10 mg PO WITH DIALYSIS RF: 0 aspirin [Aspir-81] 81 mg Tablet,Delayed Release (Dr/Ec) 81 mg PO DAILY RF: 0 Referrals: Armand Flynn DO [Primary Care Provider] - See Instructions Discharge Interventions Interventions: Discharge Planning - Case Management Last Done: 09/24/18 15:20 Status ED Status: Left Department
[2018-09-26 14:52] VITALS: RESP 16
== END 2018-09-26 17:56 | disposition hospice, inpatient (51) ==
LOC: NEDA 22:03 → NEPE 22:03 → NEDA 09-21 05:11 → NEPFCDU 09-21 05:14
PROVIDERS: ADMIT Hospitalist; ATTEND Hospitalist